=== PATIENT | male | born 1950 | race Caucasian/White ===

== ENCOUNTER 2018-04-20 02:54 | Outpatient (CLI) | payer MEDICARE, MEDICAID, SELFPAY | END 2018-04-20 03:14 | PROVIDERS: PCP Nurse Practitioner Family; Visit Provider Nurse Practitioner Family | DX: J44.9 Chronic obstructive pulmonary disease, unspecified (principal) | CPT/HCPCS: 36415; 80053; 86803; 85025; 86592 ==

== ENCOUNTER 2018-04-20 10:48 | Outpatient (CLI) | payer MEDICARE, MEDICAID, SELFPAY ==
[2018-04-20 11:36] LABS: Abs Immature Grans 0.02 k/cumm (0.0-0.09); Absolute Basophil Count 0.02 k/cumm (0.0-0.2); Absolute Eosinophil Count 0.17 k/cumm (0.0-0.7); Absolute Lymphocyte Count 1.59 k/cumm (1.2-3.4); Absolute Monocyte Count 0.51 k/cumm (0.11-0.7); Absolute Neutrophil Count 4.22 k/cumm (1.2-6.7); Basophils % 0.3; Eosinophils % 2.6; HCT 42.2 % (40.0-50.0); HGB 13.5 g/dL (13.5-17.5); Immature Grans % 0.3; Lymphocytes % 24.3; Mean Corpuscular Hemoglobin 30.5 pg (27.0-33.0); Mean Corpuscular Volume 95.3 fL (80-95); Mean Platelet Volume 10.6 fL (8.0-11.0); Monocytes % 7.8; Neutrophils % 64.7; Platelet Count 200 x1000/uL (130-400); RBC 4.43 m/cumm (4.50-6.00); RBC Distribution Width 13.4 % (11.8-14.1); White Blood Cell Count 6.53 k/cumm (4.4-10.8)
[2018-04-20 11:51] LABS: ALT 14 U/L (12-78); AST 19 U/L (15-37); Albumin 3.3 g/dL (3.4-5.0); Alkaline Phosphatase 111 U/L (46-116); Anion Gap 7.3 mmol/L (3-11); BUN 7 mg/dL (7-18); Bilirubin, Total 0.3 mg/dL (0.2-1.0); CO2 30.7 mmol/L (21.0-32.0); CREATININE 0.83 mg/dL (0.70-1.30); Calcium 8.7 mg/dL (8.5-10.1); Chloride 99 mmol/L (98-107); Glucose 111 mg/dL (70-100); Sodium 137 mmol/L (136-145); Total Protein 7.4 g/dL (6.4-8.2)
[2018-04-21 12:37] LABS: Syphilis Serology (RPR) Negative (Negative)
[2018-04-21 13:27] LABS: Hepatitis C Ab w Rflx HCV PCR Negative (NEGAT)
[2018-04-25 15:37] LABS: TB Interpretation Negative (NEGAT)
== END 2018-04-20 11:08 ==
PROVIDERS: PCP Nurse Practitioner Family; Visit Provider Nurse Practitioner Family
DX: J44.9 Chronic obstructive pulmonary disease, unspecified (principal); K21.9 Gastro-esophageal reflux disease without esophagitis; F11.20 Opioid dependence, uncomplicated; Z79.899 Other long term (current) drug therapy
CPT/HCPCS: 36415; 80053; 86803; 85025; 86592

== ENCOUNTER 2018-07-28 02:47 | Outpatient (CLI) | payer MEDICARE, MEDICAID, SELFPAY | END 2018-07-28 03:07 | PROVIDERS: PCP Nurse Practitioner Family; Visit Provider Nurse Practitioner Family | DX: Z79.899 Other long term (current) drug therapy (principal); Z13.6 Encounter for screening for cardiovascular disorders; R69 Illness, unspecified | CPT/HCPCS: 93005; 93010 ==

== ENCOUNTER 2018-10-07 05:59 | Inpatient (IN) | payer MEDICARE, MEDICAID, SELFPAY ==
[2018-10-07] VITALS (143 sets, daily range): BP systolic 104–157; BP diastolic 70–122; PULSE 75–108; RESP 2–33; TEMP 36.2–38.4; O2SAT 84–98
--- NOTE | 2018-10-07 06:22 | W.ED.GENAD ---
Discharge Plan Disposition Patient Disposition: [facility] INPATIENT Condition: Stable Discharge Details Chief Complaint: GenMedical Clinical Impression: Right lower lobe pneumonia Reason For Visit: R LOWER LOBE PNEUMONIA Admit Date/Time: 10/07/18 10:42 Admit Provider: Ti Delgado Attending Provider: Ti Delgado Primary Care Provider: Richelle Dowling ED Provider: Jono Dawkins Discharge Data Discharge Date/Time-TO BE ENTERED AT DEPARTURE: 10/07/18 11:45 Medical Decision Making <Samuel Flores MD - Last Filed: 10/07/18 21:17> Patient presents to ED with cough and mild shortness of breath. He is noted to be hypoxic in the mid 80s on room air. He has diminished breath sounds at the left base. Has rhonchi at the right base. I do not appreciate wheezing. He has no complaints of chest pain. He has had no fever. He has no coryza. IV established and fluids started. Laboratory studies obtained. Chest x-ray ordered. Suspect pneumonia. His back and knee pain is chronic in nature just exacerbated. Complains of myalgias to some degree but with lack of fever and coryza doubt influenza. Patient's laboratory studies are unremarkable. Troponin is negative. White count is minimally elevated. Chest x-ray remarkable for dilated loops of bowel and elevated left hemidiaphragm probably the reason is decreased breath sounds in the left. On reexam he continues to deny abdominal pain. However, palpation of the left upper quadrant does cause mild discomfort. He is reporting cough with a lot of phlegm production but states he is nauseated and hacking and I'm wondering if he is vomiting as well. I do not hear wheezing on exam. His lungs look relatively clear with no obvious infiltrate. Going to get a CTA of the chest and follow down through with CT of the abdomen/pelvis with oral contrast. Patient has been stable and doing well here. He has received a liter bolus. He will be signed out to oncoming physician, Dr. Dawkins. Medical Records Medical records reviewed: Yes I reviewed the patient's medical records. Lab Data Lab results reviewed: Yes I reviewed the patient's lab results. ECG Data Attestation: I personally reviewed and interpreted this ECG (s) as follows: Prior ECG tracings: not available for review Interpretation: Sinus tachycardia at 104. Normal axis and intervals. Nonspecific ST changes in the lateral leads. No ST elevation. <Jono Dawkins MD - Last Filed: 10/07/18 10:46> Received signout from Dr. Flores. Please see his note regarding details of patient's presentation and history. Patient CT images showed right lower lobe pneumonia. He does have persistent hypoxia, and elevated white blood cell count and a sodium of 131. Consistent with COPD exacerbation and right lower lobe pneumonia. Patient given Solu-Medrol, DuoNeb updraft. Please note given the patient's atypical presentation and initial unremarkable read of chest x-ray, pneumonia was delayed in diagnosis upon receipt of CT images. Patient states to me wishes to be full code. He states he did receive this mornings methadone dose. HPI <Samuel Flores MD - Last Filed: 10/07/18 21:17> General Mode of arrival: wheelchair. Date/Time Provider Initiated Documentation: 10/07/18 06:11. Limitations to Documentation: no limitations. Information obtained by: patient and old records reviewed. HPI Narrative: Patient presents to ED with cough and difficulty breathing. Patient reports getting the flu shot 3 days ago. About 12 hours after that he started to have cough. This has got progressively worse. He has some shortness of breath. He denies having fever. He has some body aches including chronic right knee pain and swelling. He has some nausea but no vomiting. He has no chest pain or pressure. He has no abdominal pain. He is a smoker. He does report history of COPD. Related Data Home Medications Medication Instructions Recorded Confirmed cyclobenzaprine 10 mg PO TID tab-cap 01/02/16 10/07/18 esomeprazole magnesium [Nexium] 20 mg PO DAILY tab-cap 01/02/16 10/07/18 albuterol sulfate [ProAir HFA] 2 puff INHALATION Q6H PRN 10/07/18 10/07/18 fluticasone propionate [Flovent 2 puff INHALATION BID 10/07/18 10/07/18 HFA] gabapentin 300 mg PO TID PRN 10/07/18 10/07/18 methadone 95 mg PO DAILY 10/07/18 10/07/18 Allergies Allergy/AdvReac Type Severity Reaction Status Date / Time ketorolac [From Toradol] Allergy makes my Unverified 10/07/18 06:32 head wack out codeine AdvReac Nausea Unverified 10/07/18 06:13 General Stated Complaint: GenMedical CARLOS EDUARDO: 2 Review of Systems <Samuel Flores MD - Last Filed: 10/07/18 21:17> Constitutional Denies chills, Denies fever(s), Denies headache(s), Denies lethargy, Reports malaise, Reports poor appetite and Denies weakness Eyes Denies eye discharge and Denies eye pain ENT Denies otalgia, Denies facial pain, Denies headache(s), Denies nasal congestion, Denies nasal discharge, Denies neck pain, Denies sinus pressure and Denies sore throat Cardiovascular Denies chest pain, Denies diaphoresis, Denies syncope, Denies edema, Denies leg edema, Denies lightheadedness and Reports dyspnea Respiratory Reports cough, Reports excessive phlegm production and Reports dyspnea Gastrointestinal Denies abdominal pain, Denies diarrhea, Reports nausea and Denies vomiting Genitourinary Denies dysuria and Denies flank pain Musculoskeletal Reports back pain, Reports myalgias, Reports arthralgias, Reports joint swelling, Denies neck pain and Denies numbness Integumentary/Breasts Denies rash Neurologic Denies syncope, Denies headache(s), Denies focal weakness, Denies numbness and Denies weakness PFSH <Samuel Flores MD - Last Filed: 10/07/18 21:17> Medical History Anxiety (Chronic) Back pain (Chronic) COPD (chronic obstructive pulmonary disease) (Chronic) Depression (Chronic) GERD (gastroesophageal reflux disease) (Chronic) Insomnia (Chronic) Macrocytosis (Chronic) Numbness and tingling in right hand (Chronic) Right knee DJD (Chronic) Tobacco abuse (Chronic) Surgical History History of right knee surgery (Inactive) History of shoulder surgery (Inactive) Hx of tonsillectomy (Inactive) Previous back surgery (Inactive) Social History Smoking/Tobacco Use Status: Current every day Tobacco Type: cigarettes Smoking cigarettes per day: 4 Years smoked: 40 Alcohol Intake: never Drug use: Daily Substance use type: marijuana Do you feel safe at home: Yes Do you feel safe in your relationship?: Yes Exam <Samuel Flores MD - Last Filed: 10/07/18 21:17> Const General: cooperative and no acute distress Orientation: alert and oriented x3 HENMT Head: normocephalic and atraumatic Mouth: moist mucous membranes Neck Neck: normal visual inspection, trachea midline and supple Resp Effort & Inspection: normal respiratory effort Auscultation: diminished lung sounds on the left in the lower lung boone, no rales, rhonchi right lower and no wheezes Cardio Rate: tachycardic Rhythm: regular rhythm Heart Sounds: S1 normal and S2 normal Pulses: radial pulses present GI Inspection: normal to inspection and non-distended Palpation: soft, not firm, no masses and nontender Skin Rashes: no rashes Neuro General: alert, oriented x3, no focal motor deficits and CN's II-XI intact bilaterally Extrem General: clubbing (mild), no cyanosis and no edema Right lower extremity: knee Details: abnormal to inspection, swelling and abnormal ROM Course <Samuel Flores MD - Last Filed: 10/07/18 21:17> Vital Signs Temperature 99.0 F 10/07/18 06:06 Pulse 106 H 10/07/18 06:06 Respiratory Rate 22 10/07/18 06:06 Blood Pressure 132/73 10/07/18 06:06 Pulse Oximetry 86 L 10/07/18 06:06 Temperature 99.0 F 10/07/18 06:06 Temperature Source Oral 10/07/18 06:06 Pulse 106 H 10/07/18 06:06 Respiratory Rate 22 10/07/18 06:06 Respiratory Effort Nasal Flaring 10/07/18 06:15 Blood Pressure 132/73 10/07/18 06:06 Blood Pressure Position Supine 10/07/18 06:06 Pulse Oximetry 86 L 10/07/18 06:06 Oxygen Delivery Method Room Air 10/07/18 06:06 Oxygen Flow Rate 0 10/07/18 06:06 Pain Level 9 10/07/18 06:06 Sign Out <Samuel Flores MD - Last Filed: 10/07/18 21:17> Sign Out Data: Sign Out Comment: pending CT scan chest/abdomen/pelvis and re-evaluation Last updated by Samuel Flores MD at 10/07/18 07:52
[2018-10-07 06:33] LABS: Lactate-non-spesis 1.3 mmol/l (0.6-1.4)
[2018-10-07] MEDS: Lactated Ringers 1,000 ML 1000 ML IV (06:33)
[2018-10-07 06:35] LABS: Abs Immature Grans 0.03 k/cumm (0.0-0.09); Absolute Basophil Count 0.02 k/cumm (0.0-0.2); Absolute Eosinophil Count 0.03 k/cumm (0.0-0.7); Absolute Lymphocyte Count 0.58 k/cumm (1.2-3.4); Absolute Monocyte Count 0.94 k/cumm (0.11-0.7); Absolute Neutrophil Count 9.57 k/cumm (1.2-6.7); Basophils % 0.2; Eosinophils % 0.3; HCT 41.3 % (40.0-50.0); HGB 13.6 g/dL (13.5-17.5); Immature Grans % 0.3; Lymphocytes % 5.2; Mean Corp. HGB Concentration 32.9 g/dL (32.0-36.0); Mean Corpuscular Hemoglobin 30.6 pg (27.0-33.0); Mean Corpuscular Volume 92.8 fL (80-95); Mean Platelet Volume 9.9 fL (8.0-11.0); Monocytes % 8.4; Neutrophils % 85.6; Platelet Count 271 x1000/uL (130-400); RBC 4.45 m/cumm (4.50-6.00); RBC Distribution Width 13.7 % (11.8-14.1); White Blood Cell Count 11.18 k/cumm (4.4-10.8)
[2018-10-07 06:51] LABS: ALT 14 U/L (12-78); AST 25 U/L (15-37); Alkaline Phosphatase 92 U/L (46-116); Anion Gap 9.8 mmol/L (3-11); BUN 11 mg/dL (7-18); Bilirubin, Total 0.5 mg/dL (0.2-1.0); CO2 27.2 mmol/L (21.0-32.0); CREATININE 0.82 mg/dL (0.70-1.30); Calcium 8.9 mg/dL (8.5-10.1); Chloride 94 mmol/L (98-107); Glucose 146 mg/dL (70-100); Magnesium 1.8 mg/dL (1.8-2.4); Potassium 3.9 mmol/L (3.5-5.1); Sodium 131 mmol/L (136-145); Total Protein 8.5 g/dL (6.4-8.2)
[2018-10-07 06:52] LABS: Troponin I < 0.02 ng/mL (0.00-0.06)
--- NOTE | 2018-10-07 07:00 | DI.RAD_ITS ---
SYMPTOM/DIAGNOSIS: COUGH, LOW SATURATIONS PA AND LATERAL CHEST: Comparison is made with 07/06/17. The lungs are not well inflated on either view. The heart size appears normal. The aorta is tortuous, unchanged. The lungs are not well inflated on either view. There is question of increased densities at the right lower lobe which could represent pneumonia versus atelectasis. There are mild underlying fibrotic changes. A left shoulder prosthesis is seen. There are severe degenerative changes of the right shoulder as well as degenerative changes in the thoracic spine. IMPRESSION: Question of a right lower lobe infiltrate versus atelectasis.
[2018-10-07] MEDS: Lactated Ringers 1,000 ML 125 ML IV (07:26)
[2018-10-07 09:55] LABS: Bilirubin Small (Negative); Blood Negative (Negative); Clarity Clear; Glucose Negative (Negative); Ketones 80 mg/dL (Negative); Leukocyte Esterase Negative (Negative); Nitrite Negative (Negative); Specific Gravity >= 1.030 (1.005-1.025)
--- NOTE | 2018-10-07 10:03 | NUR.NOTE ---
Iron Cutter received pertinent report from Naya Patel at 1000, and now assumes care of Ger Deuce. Patient is currently in DI (CT).Nursing Note:
[2018-10-07] MEDS: Omnipaque 350 MG/ML 100 ML BTL IJ (10:10)
--- NOTE | 2018-10-07 10:11 | NUR.NOTE ---
Return to ED from CTNursing Note:
--- NOTE | 2018-10-07 10:12 | DI.CT_ITS ---
SYMPTOM/DIAGNOSIS: HYPOXIC, ABD TENDERNESS, ABNORMAL CHEST XR PE CHEST CT: CT angiography was performed with multi slice acquisition and multi planar and 3D reconstruction. The exam is limited by patient motion. The aorta and pulmonary arteries are well opacified with IV contrast. There is significant motion at the level of the aortic root and proximal pulmonary artery. No pulmonary emboli or aortic dissection is seen. The heart size is normal. No pleural or pericardial effusions are seen. Evaluation of the lungs is difficult due to degree of respiratory motion. The lungs are not well inflated. There is elevation of the left diaphragm. Air space opacities are seen in the right lower lobe suspicious for pneumonia. There is mild apical scarring, greater on the right side. There is bilateral gynecomastia. Degenerative changes are seen in the spine. There is a left shoulder prosthesis. There are severe degenerative changes of the right shoulder as well as evidence of chronic rotator cuff tear. IMPRESSION: Limited exam due to respiratory motion and poor pulmonary infiltration. A right lower lobe infiltrate is seen. There is no evidence of pulmonary emboli or aortic dissection. ABDOMEN AND PELVIC CT: Images were performed from the lung bases through the ischial tuberosities after IV and oral contrast. The exam is quite limited by patient motion. The oral contrast extends to the hepatic flexure. There is a moderate to increased quantity of stool. There is no bowel wall thickening or inflammatory change. There is no abnormal bowel dilatation. The liver, gallbladder, spleen, pancreas, kidneys and adrenals are unremarkable. The bladder and prostate appear intact. There is no free air or free fluid. There are severe degenerative changes as well as post surgical changes in the lumbar spine. IMPRESSION: Limited exam due to patient motion. No acute abnormality is identified.
[2018-10-07] MEDS: Albuterol/Ipratropium 3 ML UPD VIAL UPD (11:10)
[2018-10-07] MEDS: methylPREDNISolone SUCC 125 MG VIAL IVP (11:20)
[2018-10-07] MEDS: Normal Saline Flush 10 ML SYR IVP (11:30)
--- NOTE | 2018-10-07 11:34 | PDOC.ERCMPRO ---
Care Management Progress Note 10/07-Eladio presented to the Emergency Department this am with cough and shortness of breath. His daughter Zoya transported him here. Eladio is being admitted to the med/surg unit for right sided pneumonia. This CM met with Eladio. Eladio currently is staying with his daughter Zoya and son in law Gagan Bledsoe in [place], [place]. There are also two grandchildren in the home, an 18 yhear old granddaugther and 8 year old grandson. Eladio lights up when he talks about the grandchildren. Eladio does still have a residence in [place]. Cody states he has a daughter Ana Laura and Son Bradley that live in [place]. Discussion on Advance Directives. Phillip does not have any advance directives and at this time doesn't feel like completing them. Eladio goes to the [facility] clinic every 10 days for Methadone. Cody states he has been taking methadone since 1990 for chronic back pain. Eladio does not use any DME, does not have any home health services or lifeline. Eladio states he can get around reasonably well. Daughter Zoya is not on the chart and Eladio would like to add her. This CM notified Access to add Zoya Bledsoe, [facility] [place][note 2], , eladio's daughter to the chart. Will keep daughter Ana Laura on the chart as well. When ready for discharge, Eladio plans on going back to [place] to his daughter Zoya's home. Zoya will transport home.
--- NOTE | 2018-10-07 12:29 | CMPROGNOTE_ITS ---
Care Management Progress Note 10/07-Eladio presented to the Emergency Department this am with cough and shortness of breath. His daughter Zoya transported him here. Eladio is being admitted to the med/surg unit for right sided pneumonia. This CM met with Eladio. Eladio currently is staying with his daughter Zoya and son in law Gagan Bledsoe in [place], [place]. There are also two grandchildren in the home, an 18 yhear old granddaugther and 8 year old grandson. Eladio lights up when he talks about the grandchildren. Eladio does still have a residence in [place]. Cody states he has a daughter Ana Laura and Son Bradley that live in [place]. Discussion on Advance Directives. Phillip does not have any advance directives and at this time doesn't feel like completing them. Eladio goes to the [facility] clinic every 10 days for Methadone. Cody states he has been taking methadone since 1990 for chronic back pain. Eladio does not use any DME, does not have any home health services or lifeline. Eladio states he can get around reasonably well. Daughter Zoya is not on the chart and Eladio would like to add her. This CM notified Access to add Zoya Bledsoe, [facility], , eladio's daughter to the chart. Will keep daughter Ana Laura on the chart as well. When ready for discharge, Eladio plans on going back to [place] to his daughter Zoya's home. Zoya will transport home.
[2018-10-07] MEDS: Normal Saline 1,000 ML 100 ML IV ×2 (13:30→23:40)
[2018-10-07] MEDS: Enoxaparin 40 MG/0.4 ML SYR SC (14:06)
[2018-10-07] MEDS: Acetaminophen 325 MG TAB PO (16:37)
[2018-10-07] MEDS: Doxycycline Hyclate 100 MG CAP PO (19:32)
[2018-10-07] MEDS: Cyclobenzaprine 10 MG TAB PO (19:32)
[2018-10-07] MEDS: Mometasone 220 MCG 14 DOSE INHALER 1 PUFF IH (19:33)
[2018-10-07] MEDS: Nystatin POWDER 60 GM JAR TP (19:33)
[2018-10-08] VITALS (7 sets, daily range): BP systolic 104–130; BP diastolic 65–78; PULSE 76–86; RESP 18–22; TEMP 36.1–36.7; O2SAT 93–96
[2018-10-08] MEDS: Mometasone 220 MCG 14 DOSE INHALER 1 PUFF IH ×2 (07:28→19:07)
[2018-10-08] MEDS: Esomeprazole 20 MG CAPCR PO (07:53)
[2018-10-08] MEDS: Cyclobenzaprine 10 MG TAB PO ×3 (07:53→19:06)
[2018-10-08] MEDS: Doxycycline Hyclate 100 MG CAP PO ×2 (07:53→19:06)
[2018-10-08] MEDS: Methadone Liquid 10 MG/ML 95 MG PO (07:54)
[2018-10-08] MEDS: Nystatin POWDER 60 GM JAR TP ×2 (07:54→19:10)
[2018-10-08 08:05] LABS: Abs Immature Grans 0.03 k/cumm (0.0-0.09); Absolute Basophil Count 0.01 k/cumm (0.0-0.2); Absolute Lymphocyte Count 1.02 k/cumm (1.2-3.4); Absolute Monocyte Count 0.66 k/cumm (0.11-0.7); Absolute Neutrophil Count 8.78 k/cumm (1.2-6.7); Basophils % 0.1; HCT 38.8 % (40.0-50.0); HGB 12.4 g/dL (13.5-17.5); Immature Grans % 0.3; Lymphocytes % 9.7; Mean Corpuscular Hemoglobin 29.9 pg (27.0-33.0); Mean Corpuscular Volume 93.5 fL (80-95); Monocytes % 6.3; Neutrophils % 83.6; Platelet Count 208 x1000/uL (130-400); RBC 4.15 m/cumm (4.50-6.00); RBC Distribution Width 13.7 % (11.8-14.1)
[2018-10-08 08:15] LABS: Anion Gap 6.9 mmol/L (3-11); BUN 11 mg/dL (7-18); CO2 28.1 mmol/L (21.0-32.0); CREATININE 0.64 mg/dL (0.70-1.30); Chloride 100 mmol/L (98-107); Glucose 83 mg/dL (70-100); Potassium 4.1 mmol/L (3.5-5.1); Sodium 135 mmol/L (136-145)
[2018-10-08] MEDS: Normal Saline 1,000 ML 100 ML IV (08:51)
[2018-10-08] MEDS: methylPREDNISolone SUCC 125 MG VIAL 60 MG IVP ×2 (10:37→17:39)
[2018-10-08] MEDS: Pantoprazole 40 MG VIAL IVP (10:37)
[2018-10-08] MEDS: Normal Saline Flush 10 ML SYR IVP ×2 (10:38→17:39)
[2018-10-08] MEDS: Furosemide 40 MG/4 ML VIAL IVP (12:20)
[2018-10-08] MEDS: Albuterol 2.5 MG/3 ML INH SOLN VIAL UPD (12:57)
[2018-10-08] MEDS: Enoxaparin 40 MG/0.4 ML SYR SC (13:26)
--- NOTE | 2018-10-08 15:56 | W.PM.PROGNOT ---
Date of Service Date of service: 10/08/18 Time of Service: 16:34 Assessment and Plan (1) CAP (community acquired pneumonia): Start date: 10/08/18 Start time: 16:01 Current visit: Yes Status: Acute Came to the ED with c/o cough and SOB, hypoxic in mid 80's CXR revealed RLL pneumonia, started on Doxycyline and ceftrixone day 2. He feels his breathing is improving, He does have rhonic, with scattered wheezing and crackles. IVF dcd and given a dose of Lasix 40 mg IVP in the presence of crackles and edema, see below Continue duoneb, albuterol, symbicort, mucinex, sputum for culture, pending at this time. Continue steroids and taper as needed. (2) COPD with acute exacerbation: Start date: 10/08/18 Start time: 16:07 Current visit: Yes Status: Acute In the setting of pneumonia, does not requires oxygen at home, (3) Tobacco abuse: Start date: 10/08/18 Start time: 16:06 Current visit: Yes Status: Acute current smoker, states down from 12 a day to 3 a day and feels this is a huge accomplishment, not quite ready to quit at this time. Nicotine patch ordered. Will continue to address cessation (4) GERD (gastroesophageal reflux disease): Current visit: Yes Status: Chronic (5) Edema leg: Start date: 10/08/18 Start time: 16:26 Current visit: Yes Status: Acute +2 pitting edema to RLE and +1 to LLE, patient states this is normal. he had crackles and edema 40 mg lasix IVP was given, could be increased from steroid use, will continue to monitor. (6) Chronic pain: Start date: 10/08/18 Start time: 16:33 Current visit: Yes Status: Chronic take methadone will continue home dose (7) Range of motion deficit: Start date: 10/08/18 Start time: 16:33 Current visit: Yes Status: Acute Limited ROM to bilateral shoulders, PT/OT consulted to work with patient for better mobility. (8) DVT prophylaxis: Start date: 10/08/18 Start time: 16:26 Current visit: Yes Status: Acute enoxaparin Subcu Subjective Patient reports: feels better Interval history since last seen: Mr. Tripathi feels better today, he does not appear to be in distress. His lung sounds are coarse with crackles, wheezing and rhonci. He is on rocephin and doxycycline for CAP, continue steroids, duonebs, asmanex albuterol for COPD, he did have edema to bilateral LE, he states this is normal in the presence of +2 pitting edema to RLE and +1 to LLE with crackles 40 mg lasix IVP was given. . Following administration he did have some relief. Sputum culture was ordered, culture pending He has limited ROM to bilateral shoulders from previous injury PT/OT consulted. Exam Const General: cooperative and no acute distress Orientation: alert, awake and oriented x3 HENMT Head: normal to inspection Eyes General: appearance normal, both eyes and all related structures Neck Lymphatic: no lymphadenopathy noted and no lymphedema noted Chest Chest: normal inspection of the chest Resp Effort & Inspection: able to speak in complete sentences and cough Auscultation: crackles, rhonchi and wheezes Cardio Rate: regular rate Rhythm: regular rhythm Heart Sounds: S1 normal and S2 normal GI Inspection: normal to inspection Palpation: soft and no hepatosplenomegaly Skin General skin exam: no rashes or lesions noted Neuro General: alert, awake and oriented x3 Extrem Other: pitting edema + 2 to RLE and +1 to RLE Psych Appearance: grossly normal Objective Objective Clinical Data: Abnormal lab results 10/08/18 10/08/18 Range/Units 07:40 07:40 RBC 4.15 L (4.50-6.00) m/cumm Hgb 12.4 L (13.5-17.5) g/dL Hct 38.8 L (40.0-50.0) % Absolute Neutrophils 8.78 H (1.2-6.7) k/cumm Absolute Lymphocytes 1.02 L (1.2-3.4) k/cumm Sodium 135 L (136-145) mmol/L Creatinine 0.64 L (0.70-1.30) mg/dL Vital Signs Temperature 36.6 C 10/08/18 11:34 Temperature Source Tympanic 10/08/18 11:34 Pulse 82 10/08/18 11:34 Pulse Rhythm Regular 10/07/18 20:11 Pulse 89 10/07/18 09:31 Respiratory Rate 20 10/08/18 11:34 Respiratory Effort Incrsd Work of Breathing 10/08/18 07:46 Respiratory Depth Shallow 10/08/18 07:46 Respiratory Pattern Normal 10/08/18 07:46 Blood Pressure 129/78 10/08/18 11:34 Blood Pressure Mean 93 10/07/18 09:31 Blood Pressure Position Supine 10/07/18 06:06 Pulse Oximetry 94 L 10/08/18 11:34 Oxygen Delivery Method Nasal Cannula 10/08/18 11:34 Oxygen Flow Rate 3 10/08/18 11:34 Pain Level 6 10/08/18 11:34 Comment 10/07/18 10:27 Intake & Output 10/07/18 10/08/18 10/08/18 23:59 11:59 23:59 Intake Total 2240 / 3240 1900.000 / 2140.000 240 / 2140.000 Output Total 1650 / 1950 1350 / 3075 1725 / 3075 Balance 590 / 1290 550.000 / -935.000 -1485 / -935.000 Weight 77.2 kg Intake: IV 2000 / 3000 1110.000 / 1110.000 Oral 240 / 240 790 / 1030 240 / 1030 Output: Urine 1650 / 1950 1350 / 3075 1725 / 3075 Other: Urine Color Yellow Yellow Pale Urine Appearance Clear Clear Clear Urine Odor Normal Normal Normal Comment plus missed this urinal also. Voids in urinal x2. Voiding Methods Urinal Urinal Urinal Laboratory Results WBC 10.50 k/cumm (4.4-10.8) 10/08/18 07:40 RBC 4.15 m/cumm (4.50-6.00) L 10/08/18 07:40 Hgb 12.4 g/dL (13.5-17.5) L 10/08/18 07:40 Hct 38.8 % (40.0-50.0) L 10/08/18 07:40 MCV 93.5 fL (80-95) 10/08/18 07:40 MCH 29.9 pg (27.0-33.0) 10/08/18 07:40 MCHC 32.0 g/dL (32.0-36.0) 10/08/18 07:40 RDW 13.7 % (11.8-14.1) 10/08/18 07:40 Plt Count 208 x1000/uL (130-400) 10/08/18 07:40 MPV 10.0 fL (8.0-11.0) 10/08/18 07:40 Immature Gran % 0.3 10/08/18 07:40 Neutrophils % 83.6 10/08/18 07:40 Lymphocytes % 9.7 10/08/18 07:40 Monocytes % 6.3 10/08/18 07:40 Eosinophils % 0.0 10/08/18 07:40 Basophils % 0.1 10/08/18 07:40 Absolute Neutrophils 8.78 k/cumm (1.2-6.7) H 10/08/18 07:40 Absolute Lymphocytes 1.02 k/cumm (1.2-3.4) L 10/08/18 07:40 Absolute Monocytes 0.66 k/cumm (0.11-0.7) 10/08/18 07:40 Absolute Eosinophils 0.00 k/cumm (0.0-0.7) 10/08/18 07:40 Absolute Basophils 0.01 k/cumm (0.0-0.2) 10/08/18 07:40 Sodium 135 mmol/L (136-145) L 10/08/18 07:40 Potassium 4.1 mmol/L (3.5-5.1) 10/08/18 07:40 Chloride 100 mmol/L (98-107) 10/08/18 07:40 Carbon Dioxide 28.1 mmol/L (21.0-32.0) 10/08/18 07:40 Anion Gap 6.9 mmol/L (3-11) 10/08/18 07:40 BUN 11 mg/dL (7-18) 10/08/18 07:40 Creatinine 0.64 mg/dL (0.70-1.30) L 10/08/18 07:40 Estimated GFR/1.73 m2 >= 60.00 (mL/min/1.73m2) 10/08/18 07:40 Glucose 83 mg/dL (70-100) D 10/08/18 07:40 Lactate 1.3 mmol/l (0.6-1.4) 10/07/18 06:20 Calcium 9.0 mg/dL (8.5-10.1) 10/08/18 07:40 Magnesium 1.8 mg/dL (1.8-2.4) 10/07/18 06:20 Total Bilirubin 0.5 mg/dL (0.2-1.0) 10/07/18 06:20 AST 25 U/L (15-37) 10/07/18 06:20 ALT 14 U/L (12-78) 10/07/18 06:20 Alkaline Phosphatase 92 U/L (46-116) 10/07/18 06:20 Troponin I < 0.02 ng/mL (0.00-0.06) 10/07/18 06:20 Total Protein 8.5 g/dL (6.4-8.2) H 10/07/18 06:20 Albumin 3.0 g/dL (3.4-5.0) L 10/07/18 06:20 Urine Color Dark yellow (Yellow) 10/07/18 09:49 Urine Clarity Clear 10/07/18 09:49 Urine pH 6.0 (5-8) 10/07/18 09:49 Ur Specific [place] >= 1.030 (1.005-1.025) H 10/07/18 09:49 Urine Protein Negative mg/dL (Negative) 10/07/18 09:49 Urine Ketones 80 mg/dL (Negative) H 10/07/18 09:49 Urine Blood Negative (Negative) 10/07/18 09:49 Urine Nitrite Negative (Negative) 10/07/18 09:49 Urine Bilirubin Small (Negative) H 10/07/18 09:49 Urine Urobilinogen 4.0 EU/dL (Up TO 0.2) H 10/07/18 09:49 Ur Leukocyte Esterase Negative (Negative) 10/07/18 09:49 Urine Glucose Negative mg/dL (Negative) 10/07/18 09:49
--- NOTE | 2018-10-08 16:25 | PDOC.CMIN ---
Care Management Initial Assess REASON FOR HOSPITALIZATION:: RLL Pneumonia PAST MEDICAL HISTORY/PAST SURGICAL HISTORY:: Medical: Anxiety (Chronic), Back pain (Chronic), COPD (chronic obstructive pulmonary disease) (Chronic), Depression (Chronic), GERD (gastroesophageal reflux disease) (Chronic), Insomnia (Chronic), Macrocytosis (Chronic), Numbness and tingling in right hand (Chronic), Tobacco abuse (Chronic). Surgical: History of right knee surgery (Inactive), History of shoulder surgery (Inactive), Hx of tonsillectomy (Inactive), Previous back surgery (Inactive) PREVIOUS FUNCTIONAL STATUS/SOCIAL/FAMILY SUPPORTS:: Lives with his daughter, Zoya Edwards, her and children at their home in [place], [place]. The family is very supportive. He is independent at baseline, helps watch the children and does chores around the house. . CURRENT FUNCTIONAL STATUS:: Lying in bed with nasal cannula in place. States he has never had to use oxygen before and is not sure he likes it. Hopes his lungs clear up soon so he can go home. SOB when he ambulates. ADVANCE DIRECTIVES:: None on file Has patient been provided with information about the portal?: No Did the patient sign up for the portal?: No CODE STATUS:: Full Code INSURANCE COVERAGE / FINANCIAL ISSUES:: Medicaid. Medicare CURRENT HOME/COMMUNITY SERVICES/EQUIPMENT:: None at this time PRIMARY CARE PHYSICIAN:: [facility]: Richelle Dowling NP POTENTIAL DISCHARGE NEEDS:: F/U with PCP PATIENT/FAMILY EDUCATION NEEDS:: Discharge instructions ANTICIPATED BARRIERS TO DISCHARGE:: None identified TRANSPORTATION:: Family PLAN:: Eladio will return home when medically cleared for discharge. No services needed. Family will transport. Readmission - Within the Past 30 Days Yes or No: N
[2018-10-08] MEDS: guaiFENesin 600 MG TABCR PO (19:06)
[2018-10-08] MEDS: Budesonide/Formoterol 80/4.5 6.9 GM 60 PUFF INH IH (19:07)
[2018-10-09] VITALS (8 sets, daily range): BP systolic 110–161; BP diastolic 67–92; PULSE 84–101; RESP 18–20; TEMP 36.1–36.8; O2SAT 92–96
[2018-10-09] MEDS: methylPREDNISolone SUCC 125 MG VIAL 60 MG IVP ×3 (01:31→18:08)
[2018-10-09 07:24] LABS: Abs Immature Grans 0.02 k/cumm (0.0-0.09); Absolute Lymphocyte Count 0.63 k/cumm (1.2-3.4); Absolute Neutrophil Count 9.24 k/cumm (1.2-6.7); HCT 37.2 % (40.0-50.0); HGB 12.1 g/dL (13.5-17.5); Immature Grans % 0.2; Lymphocytes % 6.2; Mean Corp. HGB Concentration 32.5 g/dL (32.0-36.0); Mean Corpuscular Hemoglobin 30.4 pg (27.0-33.0); Mean Corpuscular Volume 93.5 fL (80-95); Monocytes % 2.9; Neutrophils % 90.7; Platelet Count 210 x1000/uL (130-400); RBC 3.98 m/cumm (4.50-6.00); RBC Distribution Width 13.6 % (11.8-14.1); White Blood Cell Count 10.19 k/cumm (4.4-10.8)
[2018-10-09 07:36] LABS: Anion Gap 3.7 mmol/L (3-11); BUN 14 mg/dL (7-18); CO2 32.3 mmol/L (21.0-32.0); CREATININE 0.67 mg/dL (0.70-1.30); Calcium 8.8 mg/dL (8.5-10.1); Chloride 99 mmol/L (98-107); Glucose 136 mg/dL (70-100); Sodium 135 mmol/L (136-145)
[2018-10-09] MEDS: Budesonide/Formoterol 80/4.5 6.9 GM 60 PUFF INH IH (07:41)
[2018-10-09] MEDS: Cyclobenzaprine 10 MG TAB PO ×3 (07:49→19:09)
[2018-10-09] MEDS: guaiFENesin 600 MG TABCR PO ×2 (07:49→19:09)
[2018-10-09] MEDS: Pantoprazole 40 MG VIAL IVP (07:49)
[2018-10-09] MEDS: Esomeprazole 20 MG CAPCR PO (07:49)
[2018-10-09] MEDS: Doxycycline Hyclate 100 MG CAP PO ×2 (07:49→19:09)
[2018-10-09] MEDS: Normal Saline Flush 10 ML SYR IVP ×3 (07:50→18:09)
[2018-10-09] MEDS: Methadone Liquid 10 MG/ML 95 MG PO (07:50)
[2018-10-09] MEDS: Nystatin POWDER 60 GM JAR TP ×2 (07:51→19:09)
[2018-10-09] MEDS: Albuterol/Ipratropium 3 ML UPD VIAL UPD ×5 (09:48→23:10)
--- NOTE | 2018-10-09 11:30 | DI.RAD_ITS ---
SYMPTOM/DIAGNOSIS: WORSENING SYMPTOMS PA AND LATERAL CHEST: Comparison is made with 07/06/17 and 10/07/18. The heart size and pulmonary vasculature are within normal limits. There are increased lung markings in the right lower lobe and right upper lobe which appear stable. This may represent acute pneumonia or atelectasis. The left lung remains clear. No effusions or pneumothoraces are identified. There are again seen dilated loops of bowel beneath the left hemidiaphragm which is mildly elevated. Post surgical changes of a total reversed shoulder replacement are again noted. IMPRESSION: No significant change in appearance of the chest xray since 10/07/18. Persistent right pulmonary infiltrates.
--- NOTE | 2018-10-09 11:56 | PGE_ITS ---
Date of Service Date of service: 10/09/18 Time of Service: 12:18 Assessment and Plan (1) CAP (community acquired pneumonia): Current visit: Yes Status: Acute started on Doxycyline and ceftrixone day 3. He feels his breathing is improving, his right lung has expiratory wheezing with slight coarse sounds improved from yesterday. Left lung severely diminished with little breath sounds . CXR with elevated diaphragm and no change on from previous xray 10/07 results at this time. Sputum culture with normal garfield, continue current treatment. (2) COPD with acute exacerbation: Current visit: Yes Status: Acute In the setting of pneumonia, see above (3) Tobacco abuse: Current visit: Yes Status: Acute continue to assess readiness to quit (4) GERD (gastroesophageal reflux disease): Current visit: Yes Status: Chronic (5) Edema leg: Current visit: Yes Status: Acute +2 to RLE and +1 to LLE continue to monitor. Echo for wednesday to r/o heart failure (6) Chronic pain: Current visit: Yes Status: Chronic take methadone will continue home dose (7) Range of motion deficit: Current visit: Yes Status: Acute Limited ROM to bilateral shoulders, continue PT/OT (8) DVT prophylaxis: Current visit: Yes Status: Acute enoxaparin Subcu (9) Constipation: Start date: 10/09/18 Start time: 12:33 Current visit: Yes Status: Acute takes methadone, chronic issue bowel regimen started of senekot and miralax scheduled. Subjective Patient reports: feels better Interval history since last seen: Pt states he is feeling better today, his lung sounds on the left are diminished with little air, repeat CXR was done revealing no change from previous 10/07 CXR. There does appear to looped bowel in the diaphragm given the patient is on methadone, more than likely stool. Bowel regimen started with miralax and senekot. Right lung does sound better compared to yesterday. He does still have expiratory wheezing and rhonci. no crackles heard today. Continue treatment of steroids, nebs, updraft, rocephin and doxy day 3, currently weaning off oxygen. Exam Const General: cooperative and no acute distress Orientation: alert, awake and oriented x3 HENMT Head: normal to inspection Eyes General: appearance normal, both eyes and all related structures Neck Lymphatic: no lymphadenopathy noted and no lymphedema noted Chest Chest: normal inspection of the chest Resp Effort & Inspection: able to speak in complete sentences and cough Auscultation: crackles, diminished lung sounds, rhonchi and wheezes Other: left lung sounds diminished with little breath sounds Cardio Rate: regular rate Rhythm: regular rhythm Heart Sounds: S1 normal and S2 normal GI Inspection: normal to inspection Palpation: soft and no hepatosplenomegaly Skin General skin exam: no rashes or lesions noted Neuro General: alert, awake and oriented x3 Extrem Other: +2 pitting to RLE, +1 to LLE Psych Appearance: grossly normal Objective Objective Clinical Data: Abnormal lab results 10/09/18 10/09/18 Range/Units 06:12 06:12 RBC 3.98 L (4.50-6.00) m/cumm Hgb 12.1 L (13.5-17.5) g/dL Hct 37.2 L (40.0-50.0) % Absolute Neutrophils 9.24 H (1.2-6.7) k/cumm Absolute Lymphocytes 0.63 L (1.2-3.4) k/cumm Sodium 135 L (136-145) mmol/L Carbon Dioxide 32.3 H (21.0-32.0) mmol/L Creatinine 0.67 L (0.70-1.30) mg/dL Glucose 136 H (70-100) mg/dL Vital Signs Temperature 36.3 C L 10/09/18 11:37 Temperature Source Tympanic 10/09/18 11:37 Pulse 90 10/09/18 11:37 Pulse Rhythm Regular 10/09/18 07:43 Pulse 89 10/07/18 09:31 Respiratory Rate 20 10/09/18 11:37 Respiratory Effort Incrsd Work of Breathing 10/09/18 07:43 Respiratory Depth Shallow 10/09/18 07:43 Respiratory Pattern Normal 10/09/18 07:43 Blood Pressure 112/70 10/09/18 11:37 Blood Pressure Mean 93 10/07/18 09:31 Blood Pressure Position Supine 10/07/18 06:06 Pulse Oximetry 94 L 10/09/18 11:37 Oxygen Delivery Method Nasal Cannula 10/09/18 11:37 Oxygen Flow Rate 3 10/09/18 11:37 Pain Level 8 10/09/18 07:50 Comment 10/07/18 10:27 Intake & Output 10/08/18 10/08/18 10/09/18 11:59 23:59 11:59 Intake Total 1933.333 / 2743.333 810 / 2743.333 Output Total 1350 / 5175 3825 / 5175 600 / 600 Balance 583.333 / -2431.667 -3015 / -2431.667 -600 / -600 Weight 77.2 kg 76.5 kg Intake: IV 1143.333 / 1163.333 20 / 1163.333 Oral 790 / 1580 790 / 1580 Output: Urine 1350 / 5175 3825 / 5175 600 / 600 Other: Urine Color Yellow Yellow Yellow Urine Appearance Clear Clear Clear Urine Odor Normal Normal Comment Voids in urinal x2. Stool Characteristics Soft Formed Voiding Methods Urinal Urinal Laboratory Results WBC 10.19 k/cumm (4.4-10.8) 10/09/18 06:12 RBC 3.98 m/cumm (4.50-6.00) L 10/09/18 06:12 Hgb 12.1 g/dL (13.5-17.5) L 10/09/18 06:12 Hct 37.2 % (40.0-50.0) L 10/09/18 06:12 MCV 93.5 fL (80-95) 10/09/18 06:12 MCH 30.4 pg (27.0-33.0) 10/09/18 06:12 MCHC 32.5 g/dL (32.0-36.0) 10/09/18 06:12 RDW 13.6 % (11.8-14.1) 10/09/18 06:12 Plt Count 210 x1000/uL (130-400) 10/09/18 06:12 MPV 10.0 fL (8.0-11.0) 10/09/18 06:12 Immature Gran % 0.2 10/09/18 06:12 Neutrophils % 90.7 10/09/18 06:12 Lymphocytes % 6.2 10/09/18 06:12 Monocytes % 2.9 10/09/18 06:12 Eosinophils % 0.0 10/09/18 06:12 Basophils % 0.0 10/09/18 06:12 Absolute Neutrophils 9.24 k/cumm (1.2-6.7) H 10/09/18 06:12 Absolute Lymphocytes 0.63 k/cumm (1.2-3.4) L 10/09/18 06:12 Absolute Monocytes 0.30 k/cumm (0.11-0.7) 10/09/18 06:12 Absolute Eosinophils 0.00 k/cumm (0.0-0.7) 10/09/18 06:12 Absolute Basophils 0.00 k/cumm (0.0-0.2) 10/09/18 06:12 Sodium 135 mmol/L (136-145) L 10/09/18 06:12 Potassium 4.0 mmol/L (3.5-5.1) 10/09/18 06:12 Chloride 99 mmol/L (98-107) 10/09/18 06:12 Carbon Dioxide 32.3 mmol/L (21.0-32.0) H 10/09/18 06:12 Anion Gap 3.7 mmol/L (3-11) 10/09/18 06:12 BUN 14 mg/dL (7-18) 10/09/18 06:12 Creatinine 0.67 mg/dL (0.70-1.30) L 10/09/18 06:12 Estimated GFR/1.73 m2 >= 60.00 (mL/min/1.73m2) 10/09/18 06:12 Glucose 136 mg/dL (70-100) H 10/09/18 06:12 Lactate 1.3 mmol/l (0.6-1.4) 10/07/18 06:20 Calcium 8.8 mg/dL (8.5-10.1) 10/09/18 06:12 Magnesium 2.0 mg/dL (1.8-2.4) 10/09/18 06:12 Total Bilirubin 0.5 mg/dL (0.2-1.0) 10/07/18 06:20 AST 25 U/L (15-37) 10/07/18 06:20 ALT 14 U/L (12-78) 10/07/18 06:20 Alkaline Phosphatase 92 U/L (46-116) 10/07/18 06:20 Troponin I < 0.02 ng/mL (0.00-0.06) 10/07/18 06:20 Total Protein 8.5 g/dL (6.4-8.2) H 10/07/18 06:20 Albumin 3.0 g/dL (3.4-5.0) L 10/07/18 06:20 Urine Color Dark yellow (Yellow) 10/07/18 09:49 Urine Clarity Clear 10/07/18 09:49 Urine pH 6.0 (5-8) 10/07/18 09:49 Ur Specific Lillie >= 1.030 (1.005-1.025) H 10/07/18 09:49 Urine Protein Negative mg/dL (Negative) 10/07/18 09:49 Urine Ketones 80 mg/dL (Negative) H 10/07/18 09:49 Urine Blood Negative (Negative) 10/07/18 09:49 Urine Nitrite Negative (Negative) 10/07/18 09:49 Urine Bilirubin Small (Negative) H 10/07/18 09:49 Urine Urobilinogen 4.0 EU/dL (Up TO 0.2) H 10/07/18 09:49 Ur Leukocyte Esterase Negative (Negative) 10/07/18 09:49 Urine Glucose Negative mg/dL (Negative) 10/07/18 09:49
--- NOTE | 2018-10-09 12:04 | DI.VRAD_ITS ---
EXAM: XR Chest, 2 Views EXAM DATE/TIME: 10/09/2018 10:58 AM CLINICAL HISTORY: 68 years old, male; Signs and symptoms; Other: Worsening symptoms. ; Additional info: Best images obtained due to patient condition. TECHNIQUE: XR of the chest, 2 views. COMPARISON: CR XR CHEST 2V PA LATERAL 10/07/2018 6:55 AM FINDINGS: Lungs: There is right basilar atelectasis versus pneumonia. Pleural space: No pleural effusion or pneumothorax. Heart/Mediastinum: The mediastinum is unchanged. Upper abdomen: The left hemidiaphragm is elevated, present before. Bones/joints: There is severe osteoarthritis affecting the right shoulder. There is a a chronic right rotator cuff tear. Prior left total reverse shoulder arthroplasty. IMPRESSION: No change compared to 10/07/2018. Dictated and Authenticated by: Wilfred Wu MD. Ordering:SAIGE Atkins MD
[2018-10-09] MEDS: Enoxaparin 40 MG/0.4 ML SYR SC (15:14)
[2018-10-09 15:58] LABS: NT-proBNP 379 pg/mL
--- NOTE | 2018-10-09 16:45 | PT.INIE ---
Date of service: 10/09/18 Time of Service: 16:02 PT Notes Inpatient Physical Therapy Evaluation Date: 10/09/2018 Referring Doctor: Milly Centeno NP PT Orders: PT CONSULT: Decreased ROM to bilateral shoulders and do conditioning in a chronic illness Precautions: Fall. Standard. Patient Profile/Admitting Diagnosis: Patient is a 68-year-old male who went to the ER on 10/07/2018 with chief complaints of cough, SOB, and body malaise. CT scan of the lungs revealed a right lower lobe pneumonia and with diagnosis made for community-acquired pneumonia and COPD exacerbation. Patient also presents with limitation of motion for bilateral shoulders due to previous childhood trauma to the right shoulder and a fall at her daughter's house in [facility] with him landing on his left shoulder. Patient states that he has had previous extensive physical therapy to bilateral shoulders but full range of motion has not been achieved. Patient reports that his been part of [facility] program in [place], [place] where he is a recipient of methadone treatment for the past 6 months now. PMHX: Medical History Anxiety (Chronic) Back pain (Chronic) COPD (chronic obstructive pulmonary disease) (Chronic) Depression (Chronic) GERD (gastroesophageal reflux disease) (Chronic) Insomnia (Chronic) Macrocytosis (Chronic) Numbness and tingling in right hand (Chronic) Right knee DJD (Chronic) Tobacco abuse (Chronic) Surgical History History of right knee surgery (Inactive) History of shoulder surgery (Inactive) Hx of tonsillectomy (Inactive) Previous back surgery (Inactive) Social History/Home Situation: Patient lives with his son's ex-'s house in [facility] where he plans to go home to upon discharge from this hospital. He states that it is a single floor ranch-style home with 3 steps to enter rail on the right side going up. He states that he has stopped using a cane because it has made his hands and fingers numb although today with the use of the walker he does not report any sensory changes in both hands and fingers. Patient states he smokes 2-3 cigarettes/day and has stopped drinking for the past 20 years. He is able to make his own meals and has been ambulatory without any assistive device at home he states he has 15 feet to walk to the bathroom and 30 feet from the inside of the house to get into the car door outside. Furthermore, he states that he was doing some grocery shopping and managing well with it as long as somebody drives him Equipment Owned/DME: Has a walker and cane. He also has a wheelchair. He states though that he does not make use of any of them. Subjective: Patient seen resting lying in bed and is agreeable to PT consult. Patient states My shoulders have been like this for quite a while now,my right I injured when I was in high school and my left I hurt when I fell down the stairs and my daughter's house in [facility] several months ago. Objective: General Observation: Patient lying in bed. PICC line in the right UE. No swelling to BLE observed. Mental Status: Alert and oriented x3 Pain: Denies. 0/10. ROM: Right Upper Extremity: Shoulder flexion 30 degrees. Shoulder abduction 30 degrees. Left Upper Extremity: Shoulder flexion 30 degrees. Shoulder abduction 30 degrees. Right Lower Extremity: WFL Left Lower Extremity: WFL Strength: Right Upper Extremity: Shoulder flexors 3-/5. Shoulder abductors 3-/5. Elbow flexors 3+/5. Elbow extensors 3+/5. Undercutter weak but functional. Left Upper Extremity: Shoulder flexors 3-/5. Shoulder abductors 3-/5. Elbow flexors 3+/5. Elbow extensors 3+/5. Undercutter weak but functional. Right Lower Extremity: Hip flexors 4-/5. Knee extensors 3+/5. Knee flexors 4-/5. Ankle dorsiflexors/plantar flexors 4+/5 Left Lower Extremity: Hip flexors 4-/5. Knee extensors 3+/5. Knee flexors 4-/5. Ankle dorsiflexors/plantar flexors 4+/5 Sensation: Intact as to pain and pressure to distal B LE Bed Mobility/Transfers: Rolling independent Supine to sit independent Sit to supine independent Sit to stand supervision Stand to sit supervision Bed to chair supervision Chair to bed supervision Gait: Patient was able to tolerate level surface ambulation using a front-wheeled walker with standby assist provided by this therapist for 20 feet x5 with a total of 10 turns without will be diluted with oxygen saturation staying above 90% with 3 L of oxygen per minute. Kelvin dyspnea scale is at 1-2/10 (slight breathlessnes) after activity. Balance: Static Sitting: Normal Dynamic Sitting: Normal Static Standing: Fair Dynamic Standing: Fair Special Tests: Mobility Limitations Standardized Measure [facility] AM-PAC 6 clicks Basic Mobility Inpatient Short Form: Raw Score: 20 CMS Score: 36% deficit Informed Consent/Education: Patient instructed in purpose of PT consult and plan of care. Assessment: Patient is a 68-year-old male referred to physical therapy services with the diagnosis of community-acquired pneumonia and COPD exacerbation. Patient presents with clinical signs and symptoms consistent with medical status, as demonstrated by the following impairment level findings: Assessment: Patient is a [] year old [] referred to physical therapy services with the diagnosis of progression of []. Patient presents with clinical signs and symptoms consistent with current/admitting diagnoses that has resulted to mobility limitations, gait instability, generalized weakness, and lack of motor control as demonstrated by the following impairment level findings: 1. Decreased strength to B LE and B shoulder major muscle groups 2. Impaired balance 3. Impaired activity tolerance 4. Limitation of joint range of motion in Impairments are contributing to the following functional limitations: 1. Increased dependence with transfers 2. Inability to safely ambulate without assistive device and physical assistance 3. Increase completion time for mobility ADL performance 4. Increased fall risk 5. Inability to negotiate steps alone safely Patient is assessed as a Moderate 81475 complexity based on the following: History: Patient is a 68-year-old male with diagnosis of community-acquired pneumonia and COPD exacerbation also negatively impacted by comorbidities and past medical history as listed above Examination: Underlying impairments and functional limitations as noted above Presentation: Evolving Decision Makin moderate complexity Goals: Goals X1 week 1. Supine-Sit independent 2. Sit-Supine independent 3. Sit-Stand independent 4. Stand-Sit independent 5. Bed-Chair independent 6. Chair-Bed independent 7. Gait on level surface ambulation with no AD for at least 300 feet without report of pain nor dyspnea 8. Stairs independent while holding onto bilateral rails for at least 5 steps without report of pain nor dyspnea 9. Independent with home exercise program 10. Balance good for static and dynamic standing Plan of Care/Treatment Plan: 1-2x/day, 7 days/week x 1 week. Plan of care has been reviewed with the METAL HARDENER providing the service under Physical Therapy direction. Initiate Physical Therapy intervention for strengthening, bed mobility, transfers, gait, stairs, balance training, use of assistive device. DISCHARGE RECOMMENDATIONS: Patient will benefit from short-term home health physical therapy services in order to facilitate a smooth transition to home, evaluate home safety, reduce fall risk, and education/training for home health exercise program/functional maintenance program. TREATMENT CODE/TIME: 971 6-20 minutes, 54496 12 minutes, beginning at 16:02 PM.
--- NOTE | 2018-10-09 16:56 | IN_ITS ---
Date of service: 10/09/18 Time of Service: 16:02 PT Notes Inpatient Physical Therapy Evaluation Date: 10/09/2018 Referring Doctor: Milly Centeno NP PT Orders: PT CONSULT: Decreased ROM to bilateral shoulders and do conditioning in a chronic illness Precautions: Fall. Standard. Patient Profile/Admitting Diagnosis: Patient is a 68-year-old male who went to the ER on 10/07/2018 with chief complaints of cough, SOB, and body malaise. CT scan of the lungs revealed a right lower lobe pneumonia and with diagnosis made for community-acquired pneumonia and COPD exacerbation. Patient also presents with limitation of motion for bilateral shoulders due to previous childhood trauma to the right shoulder and a fall at her daughter's house in [facility] with him landing on his left shoulder. Patient states that he has had previous extensive physical therapy to bilateral shoulders but full range of motion has not been achieved. Patient reports that his been part of [facility] program in [place], [place] where he is a recipient of methadone treatment for the past 6 months now. PMHX: Medical History Anxiety (Chronic) Back pain (Chronic) COPD (chronic obstructive pulmonary disease) (Chronic) Depression (Chronic) GERD (gastroesophageal reflux disease) (Chronic) Insomnia (Chronic) Macrocytosis (Chronic) Numbness and tingling in right hand (Chronic) Right knee DJD (Chronic) Tobacco abuse (Chronic) Surgical History History of right knee surgery (Inactive) History of shoulder surgery (Inactive) Hx of tonsillectomy (Inactive) Previous back surgery (Inactive) Social History/Home Situation: Patient lives with his son's ex-'s house in [facility] where he plans to go home to upon discharge from this hospital. He states that it is a single floor ranch-style home with 3 steps to enter rail on the right side going up. He states that he has stopped using a cane because it has made his hands and fingers numb although today with the use of the walker he does not report any sensory changes in both hands and fingers. Patient states he smokes 2-3 cigarettes/day and has stopped drinking for the past 20 years. He is able to make his own meals and has been ambulatory without any assistive device at home he states he has 15 feet to walk to the bathroom and 30 feet from the inside of the house to get into the car door outside. Furthermore, he states that he was doing some grocery shopping and managing well with it as long as somebody drives him Equipment Owned/DME: Has a walker and cane. He also has a wheelchair. He states though that he does not make use of any of them. Subjective: Patient seen resting lying in bed and is agreeable to PT consult. Patient states My shoulders have been like this for quite a while now,my right I injured when I was in high school and my left I hurt when I fell down the stairs and my daughter's house in [facility] several months ago. Objective: General Observation: Patient lying in bed. PICC line in the right UE. No swelling to BLE observed. Mental Status: Alert and oriented x3 Pain: Denies. 0/10. ROM: Right Upper Extremity: Shoulder flexion 30 degrees. Shoulder abduction 30 degrees. Left Upper Extremity: Shoulder flexion 30 degrees. Shoulder abduction 30 degrees. Right Lower Extremity: WFL Left Lower Extremity: WFL Strength: Right Upper Extremity: Shoulder flexors 3-/5. Shoulder abductors 3-/5. Elbow flexors 3+/5. Elbow extensors 3+/5. Web Feeder weak but functional. Left Upper Extremity: Shoulder flexors 3-/5. Shoulder abductors 3-/5. Elbow flexors 3+/5. Elbow extensors 3+/5. Web Feeder weak but functional. Right Lower Extremity: Hip flexors 4-/5. Knee extensors 3+/5. Knee flexors 4- /5. Ankle dorsiflexors/plantar flexors 4+/5 Left Lower Extremity: Hip flexors 4-/5. Knee extensors 3+/5. Knee flexors 4- /5. Ankle dorsiflexors/plantar flexors 4+/5 Sensation: Intact as to pain and pressure to distal B LE Bed Mobility/Transfers: Rolling independent Supine to sit independent Sit to supine independent Sit to stand supervision Stand to sit supervision Bed to chair supervision Chair to bed supervision Gait: Patient was able to tolerate level surface ambulation using a front- wheeled walker with standby assist provided by this therapist for 20 feet x5 with a total of 10 turns without will be diluted with oxygen saturation staying above 90% with 3 L of oxygen per minute. Kelvin dyspnea scale is at 1-2/10 (slight breathlessnes) after activity. Balance: Static Sitting: Normal Dynamic Sitting: Normal Static Standing: Fair Dynamic Standing: Fair Special Tests: Mobility Limitations Standardized Measure [facility] AM-PAC 6 clicks Basic Mobility Inpatient Short Form: Raw Score: 20 CMS Score: 36% deficit Informed Consent/Education: Patient instructed in purpose of PT consult and plan of care. Assessment: Patient is a 68-year-old male referred to physical therapy services with the diagnosis of community-acquired pneumonia and COPD exacerbation. Patient presents with clinical signs and symptoms consistent with medical status, as demonstrated by the following impairment level findings: Assessment: Patient is a [] year old [] referred to physical therapy services with the diagnosis of progression of []. Patient presents with clinical signs and symptoms consistent with current/admitting diagnoses that has resulted to mobility limitations, gait instability, generalized weakness, and lack of motor control as demonstrated by the following impairment level findings: 1. Decreased strength to B LE and B shoulder major muscle groups 2. Impaired balance 3. Impaired activity tolerance 4. Limitation of joint range of motion in Impairments are contributing to the following functional limitations: 1. Increased dependence with transfers 2. Inability to safely ambulate without assistive device and physical assistance 3. Increase completion time for mobility ADL performance 4. Increased fall risk 5. Inability to negotiate steps alone safely Patient is assessed as a Moderate 64956 complexity based on the following: History: Patient is a 68-year-old male with diagnosis of community-acquired pneumonia and COPD exacerbation also negatively impacted by comorbidities and past medical history as listed above Examination: Underlying impairments and functional limitations as noted above Presentation: Evolving Decision Makin moderate complexity Goals: Goals X1 week 1. Supine-Sit independent 2. Sit-Supine independent 3. Sit-Stand independent 4. Stand-Sit independent 5. Bed-Chair independent 6. Chair-Bed independent 7. Gait on level surface ambulation with no AD for at least 300 feet without report of pain nor dyspnea 8. Stairs independent while holding onto bilateral rails for at least 5 steps without report of pain nor dyspnea 9. Independent with home exercise program 10. Balance good for static and dynamic standing Plan of Care/Treatment Plan: 1-2x/day, 7 days/week x 1 week. Plan of care has been reviewed with the SAND MOLDER providing the service under Physical Therapy direction. Initiate Physical Therapy intervention for strengthening, bed mobility, transfers, gait, stairs, balance training, use of assistive device. DISCHARGE RECOMMENDATIONS: Patient will benefit from short-term home health physical therapy services in order to facilitate a smooth transition to home, evaluate home safety, reduce fall risk, and education/training for home health exercise program/functional maintenance program. TREATMENT CODE/TIME: 971 6-20 minutes, 10697 12 minutes, beginning at 16:02 PM.
--- NOTE | 2018-10-09 17:32 | PDOC.CMPRO ---
Care Management Progress Note S/O: Sitting up on the edge of the bed visiting with a friend. Still receiving oxygen via nasal cannula. Says he is feeling better even though his CXR does not show any improvement. Looking forward to getting back home with his daughter and family. A: 68 y.o. male admitted for RLL Pneumonia P: Eladio will return home when medically cleared for discharge and no services are needed. Family will transport.
[2018-10-09] MEDS: Senna TAB 1 TAB PO (19:09)
[2018-10-09] MEDS: Mometasone 220 MCG 14 DOSE INHALER 1 PUFF IH (19:09)
[2018-10-09] MEDS: Polyethylene Glycol 3350 17 GM PACKET PO (19:09)
[2018-10-10] VITALS (7 sets, daily range): BP systolic 115–138; BP diastolic 80–89; PULSE 71–89; RESP 2–24; TEMP 35.9–36.8; O2SAT 92–97
[2018-10-10] MEDS: methylPREDNISolone SUCC 125 MG VIAL 60 MG IVP ×2 (01:27→10:56)
--- NOTE | 2018-10-10 07:28 | MERGE_ITS ---
*[facility]* *[facility]* [address] [place] [address] Date of study: 10/10/2018 Transthoracic Echocardiography M-mode, complete 2D, complete spectral Doppler, and color Doppler *STUDY CONCLUSIONS* Summary: 1. Left ventricle: The cavity size was normal. Systolic function was normal. The estimated ejection fraction was 60-65%. Findings consistent with diastolic dysfunction. There was no evidence of elevated ventricular filling pressure by Doppler parameters. 2. Aortic valve: There was mild stenosis. Peak velocity (S): 2m/sec. Mean gradient (S): 9.4mm Hg. VTI ratio of LVOT to aortic valve: 0.42. Valve area (VTI): 1.3cm^2. 3. Mitral valve: There was mild regurgitation. 4. Left atrium: The atrium was mildly dilated. 5. Atrial septum: No defect or patent foramen ovale was identified. 6. Pulmonary arteries: Pulmonary systolic pressure was in the range of 35mm Hg to 45mm Hg. 7. Inferior vena cava: The vessel was patent and normal in size. The respirophasic diameter changes were in the normal range (greater than or equal to 50%), consistent with normal central venous pressure. *PATIENT PRESENTATION* Height: 167.6cm ((66in) ) S/D Pressure: 131 / 84 Weight: 76.2kg ((167.6lb) ) BSA: 1.9m^2 Test start time: 07:40 AM. Test stop time: 08:40 AM. 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 This study was interpreted by [facility]. Pertinent images and digital data are archived for permanent storage and are available for subsequent review. No prior study was available for comparison. Study status: Routine. Transthoracic echocardiography. M-mode, complete 2D, complete spectral Doppler, and color Doppler. A Transthoracic Echocardiogram was performed. Scanning was performed from the parasternal, apical, subcostal, and suprasternal notch acoustic windows. Images were obtained using an [id number] cardiac ultrasound machine. Image quality was adequate. Study completion: The patient tolerated the procedure well. History: PMH: New CHF? *CARDIAC ANATOMY* Left ventricle: The cavity size was normal. Systolic function was normal. The estimated ejection fraction was 60-65%. The tissue Doppler parameters were abnormal. Findings consistent with diastolic dysfunction. There was no evidence of elevated ventricular filling pressure by Doppler parameters. Aortic valve: Moderately thickened, moderately calcified leaflets. Doppler: There was mild stenosis. There was no regurgitation. VTI ratio of LVOT to aortic valve: 0.42. Valve area (VTI): 1.3cm^2. Indexed valve area (VTI): 0.7cm^2/m^2. Peak velocity ratio of LVOT to aortic valve: 0.39. Valve area (Vmax): 1.2cm^2. Indexed valve area (Vmax): 0.6cm^2/m^2. Mean velocity ratio of LVOT to aortic valve: 0.38. Valve area (Vmean): 1.2cm^2. Indexed valve area (Vmean): 0.6cm^2/m^2. Mean gradient (S): 9.4mm Hg. Peak gradient (S): 15.9mm Hg. Aorta: Aortic root: The aortic root was normal in size. Ascending aorta: The ascending aorta was normal in size. Mitral valve: Doppler: There was no evidence for stenosis. There was mild regurgitation. Valve area by pressure half-time: 3.5cm^2. Indexed valve area by pressure half-time: 1.8cm^2/m^2. Left atrium: The atrium was mildly dilated. Atrial septum: No defect or patent foramen ovale was identified. Right ventricle: Poorly visualized. Pulmonic valve: Doppler: There was no evidence for stenosis. There was no significant regurgitation. Tricuspid valve: Doppler: There was mild regurgitation. Pulmonary artery: Poorly visualized. Pulmonary systolic pressure was in the range of 35mm Hg to 45mm Hg. Right atrium: The atrium was normal in size. Pericardium: There was no pericardial effusion. Systemic veins: Inferior vena cava: Well visualized. The vessel was patent and normal in size. The respirophasic diameter changes were in the normal range (greater than or equal to 50%), consistent with normal central venous pressure. Baseline ECG: Normal sinus rhythm. Measurements Left ventricle Value Reference LV ID, ED, PLAX 3.9 cm 3.5 - 6.0 LV ID, ES, PLAX 2.7 cm 2.1 - 4.0 LV PW thickness, ED, PLAX 1.1 cm LV end-diastolic volume, 1-p A2C 62 ml LV ejection fraction, 1-p A2C 54 % LV end-diastolic volume, 1-p A4C 59 ml LV ejection fraction, 1-p A4C 53 % LV e', lateral 0.062 m/sec LV E/e', lateral 9 LV e', medial 0.057 m/sec LV E/e', medial 10 LV e', average 0.06 m/sec LV E/e', average 10 Ventricular septum Value Reference IVS thickness, ED, PLAX 1.1 cm LVOT Value Reference LVOT ID, A-P 2.0 cm LVOT area 3.2 cm^2 LVOT peak velocity, S 0.77 m/sec LVOT mean velocity, S 0.56 m/sec LVOT VTI, S 17.0 cm LVOT peak gradient, S 2.4 mm Hg LVOT mean gradient, S 1.4 mm Hg Stroke volume (SV), LVOT DP 54 ml Stroke index (SV/bsa), LVOT DP 28 ml/m^2 Aortic valve Value Reference Aortic valve peak velocity, S 2 m/sec Aortic valve mean velocity, S 1.48 m/sec Aortic valve VTI, S 40.0 cm Aortic mean gradient, S 9.4 mm Hg Aortic peak gradient, S 15.9 mm Hg VTI ratio, LVOT/AV 0.42 Aortic valve area, VTI 1.3 cm^2 Velocity ratio, peak, LVOT/AV 0.39 Aortic valve area, peak velocity 1.2 cm^2 Velocity ratio, mean, LVOT/AV 0.38 Aortic valve area, mean velocity 1.2 cm^2 Aortic valve area/bsa, mean velocity 0.6 cm^2/m^2 Aorta Value Reference Aortic root ID, ED 3.5 cm Ascending aorta ID, A-P, S 2.9 cm Left atrium Value Reference LA ID, A-P, ES 2.7 cm LA ID/bsa, A-P 1.4 cm/m^2 <=2.2 LA area, ES, A4C 18.6 cm^2 8.8 - 23.4 LA area, ES, A2C 16 cm^2 LA volume/bsa, ES, 1-p A4C 35 ml/m^2 LA volume, ES, 2-p 49 ml LA volume/bsa, ES, 2-p 26 ml/m^2 LA/aortic root ratio 0.77 Mitral valve Value Reference Mitral E-wave peak velocity 0.57 m/sec Mitral A-wave peak velocity 0.91 m/sec Mitral deceleration time 218 ms 150 - 230 Mitral pressure half-time 63 ms Mitral E/A ratio, peak 0.63 Mitral valve area, PHT, DP 3.5 cm^2 Tricuspid valve Value Reference Tricuspid regurg peak velocity 3 m/sec Tricuspid peak RV-RA gradient 35.2 mm Hg Right atrium Value Reference RA area, ES, A4C 12.1 cm^2 8.3 - 19.5 Legend: (L) and (H) jaki values outside specified reference range. I have personally reviewed the images and have reviewed and edited the reported findings. Electronically signed by Ti Burnham MD 10/10/2018 17:57
[2018-10-10] MEDS: Methadone Liquid 10 MG/ML 95 MG PO (09:00)
[2018-10-10] MEDS: Normal Saline Flush 10 ML SYR IVP ×3 (09:13→21:55)
[2018-10-10] MEDS: Pantoprazole 40 MG VIAL IVP (09:13)
[2018-10-10] MEDS: Polyethylene Glycol 3350 17 GM PACKET PO (09:13)
[2018-10-10] MEDS: Esomeprazole 20 MG CAPCR PO (09:14)
[2018-10-10] MEDS: Doxycycline Hyclate 100 MG CAP PO ×2 (09:14→19:53)
[2018-10-10] MEDS: Cyclobenzaprine 10 MG TAB PO ×3 (09:14→19:53)
[2018-10-10] MEDS: Docusate Sodium 100 MG CAP PO (09:14)
[2018-10-10] MEDS: guaiFENesin 600 MG TABCR PO ×2 (09:14→19:52)
[2018-10-10] MEDS: Senna TAB 1 TAB PO ×2 (09:14→19:52)
[2018-10-10 09:35] LABS: Abs Immature Grans 0.05 k/cumm (0.0-0.09); Absolute Basophil Count 0.01 k/cumm (0.0-0.2); Basophils % 0.1; HCT 42.4 % (40.0-50.0); HGB 13.8 g/dL (13.5-17.5); Immature Grans % 0.4; Lymphocytes % 5.5; Mean Corp. HGB Concentration 32.5 g/dL (32.0-36.0); Mean Corpuscular Hemoglobin 30.2 pg (27.0-33.0); Mean Corpuscular Volume 92.8 fL (80-95); Mean Platelet Volume 10.1 fL (8.0-11.0); Monocytes % 2.7; Neutrophils % 91.3; Platelet Count 268 x1000/uL (130-400); RBC 4.57 m/cumm (4.50-6.00); RBC Distribution Width 13.8 % (11.8-14.1); White Blood Cell Count 13.91 k/cumm (4.4-10.8)
[2018-10-10 09:38] LABS: Anion Gap 6.6 mmol/L (3-11); BUN 14 mg/dL (7-18); CO2 28.4 mmol/L (21.0-32.0); CREATININE 0.76 mg/dL (0.70-1.30); Calcium 9.3 mg/dL (8.5-10.1); Chloride 100 mmol/L (98-107); Glucose 123 mg/dL (70-100); Magnesium 2.2 mg/dL (1.8-2.4); Potassium 4.2 mmol/L (3.5-5.1); Sodium 135 mmol/L (136-145)
[2018-10-10 09:43] LABS: Absolute Lymphocyte Count 0.77 k/cumm (1.2-3.4); Absolute Monocyte Count 0.38 k/cumm (0.11-0.7)
[2018-10-10] MEDS: Budesonide/Formoterol 80/4.5 6.9 GM 60 PUFF INH IH (10:22)
[2018-10-10] MEDS: Mometasone 220 MCG 14 DOSE INHALER 1 PUFF IH ×2 (10:22→19:52)
--- NOTE | 2018-10-10 10:44 | OT.INIE ---
Occupational Therapy Notes Inpatient Occupational Therapy Evaluation Date: 10/10/18 Referring Doctor:Milly Centeno NP OT Orders: decreased ROM to (B) shoulders and deconditioning in setting of chronic illness. Precautions: Fall, Standard PATIENT PROFILE/ADMITTING DIAGNOSIS: Pt is a 68 year old male who was admitted through the ER on 10/07/18 for (R) lower lobe pneumonia. Past Medical History: Anxiety (Chronic),Back pain (Chronic),COPD (chronic obstructive pulmonary disease) (Chronic),Depression (Chronic),GERD (gastroesophageal reflux disease) (Chronic),Insomnia (Chronic),Macrocytosis (Chronic),Numbness and tingling in right hand (Chronic),Right knee DJD (Chronic) Tobacco abuse (Chronic)History of right knee surgery,History of shoulder surgery,Hx of tonsillectomy Social History/Home Situation: Pt reports that he lives with his daughter, her and two children in a private home. He reports that through the garage there are 3 steps to enter. His bedroom resides on the 2nd floor. His baseline for ADLs/IADLs is that he is (I) with dressing, toileting and bathing. However pt reports that he baths standing in the shower and gets dizzy at times. OT does recommend that pt get a shower chair or bench for the shower to increase his safety. Pt brushes his teeth standing at the sink and performs stairs one step at a time. Pt does not drive he utilizes [facility] as he states he gave his license up a couple years ago due to not being able to afford a car or the insurance for it. Equipment owned/DME: walker and cane and he uses them as needed. SUBJECTIVE: Pt was sitting on side of bed when OT arrived. He was agreeable to OT consult but reports that he has been in and out of his room all morning for tests. He reports that he is tired. OBJECTIVE: General Observation: Nasal cannula O2 Mental Status: A&Ox3 Pain: No c/o pain ROM: RUE Shoulder flexion limited to 40* AROM d/t old rotator cuff issue from high school, elbow WNL, hand WNL L UE Shoulder flexion limited to 40* AROM d/t old rotator cuff issue from falling down stairs in 2013, elbow WNL, hand WNL STRENGTH: RUE Shoulder flexion 3/5, bicep 3+/5, tricep 3+/5, marketing project lead was strong LUE Shoulder flexion 3/5, bicep 3+/5, tricep 3+/5, marketing project lead was strong but less than (R) FUNCTIONAL MOBILITY/ADLS: Sit-Stand SBA, FWW Stand-sit SBA, FWW BALANCE: Static sitting Normal Dynamic Sitting Normal pt was able to perform functional reaching for objects on the floor with increased (I) as well as when reaching for items on table. Static Standing Good SPECIAL TESTS: Daily Activity Limitations Standardized Measure [facility] AM -PAC ?6 clicks? Daily Activity Inpatient Short Form: Raw score: 20 Standardized score: 42.03 CMS score: 38.32% INFORMED CONSENT/EDUCATION: Pt instructed in purpose of OT Consult and plan of care. ASSESSMENT: Patient is a 68-year-old male referred to occupational therapy services with diagnosis of decreased ROM to (B) shoulder and deconditioning in setting of chronic illness with admission to [facility] for (R) lower lobe pneumonia. Patient presents with clinical signs and symptoms consistent with dx, as demonstrated by the following impairment level findings: Decreased (B) functional ROM, decreased functional strengthening, decreased functional activity tolerance, current use of O2 during ADL routines. Impairments are contributing to the following functional limitations: Decreased functional activity tolerance, decreased (I) in above head functional use of (B) UE, chronic pain and decreased ROM. AMPAC score 20, CMS score 38.32% Patient is assessed as a Moderate 57394 complexity based on the following: History: See Above Examination: See Above Presentation: Evolving Decision Making: AMPAC score 20, CMS score 38.32% GOALS Goals x1 week in hospital setting 1. Transfers (I), FWW 2. Dressing Sitting in chair pt will be able to (I) don and doff (B) socks, put on pants, and dress UE (I) 3. Bathing Standing at sink with FWW, pt will be able to (I) wash UE and in sitting wash LE 4. Toileting (I) on toilet 5. Eating (I) 6. Grooming standing at sink (I) with brushing teeth PLAN OF CARE/TREATMENT PLAN: 1x/day, 5 days/ week x 1week Initiate Occupational Therapy Services for bathing, dressing, grooming, toileting, eating, transfer training. DISCHARGE RECOMMENDATIONS OT recommends that pt return home when medically cleared per MD with home health services. OT recommends that pt get a shower chair or bench to decrease fall risk and increase pts safety during bathing routine. TREATMENT TIME/MINUTES/CODES 94775, 20 minutes (09:55) Estephanie Osman OTR/[facility]
[2018-10-10] MEDS: Gabapentin 300 MG CAP PO (10:55)
--- NOTE | 2018-10-10 11:06 | OTIE_ITS ---
Occupational Therapy Notes Inpatient Occupational Therapy Evaluation Date: 10/10/18 Referring Doctor:Milly Centeno NP OT Orders: decreased ROM to (B) shoulders and deconditioning in setting of chronic illness. Precautions: Fall, Standard PATIENT PROFILE/ADMITTING DIAGNOSIS: Pt is a 68 year old male who was admitted through the ER on 10/07/18 for (R) lower lobe pneumonia. Past Medical History: Anxiety (Chronic),Back pain (Chronic),COPD (chronic obstructive pulmonary disease) (Chronic),Depression (Chronic),GERD (gastroesophageal reflux disease) (Chronic),Insomnia (Chronic),Macrocytosis (Chronic),Numbness and tingling in right hand (Chronic),Right knee DJD (Chronic) Tobacco abuse (Chronic)History of right knee surgery,History of shoulder surgery,Hx of tonsillectomy Social History/Home Situation: Pt reports that he lives with his daughter, her and two children in a private home. He reports that through the garage there are 3 steps to enter. His bedroom resides on the 2nd floor. His baseline for ADLs/IADLs is that he is (I) with dressing, toileting and bathing. However pt reports that he baths standing in the shower and gets dizzy at times. OT does recommend that pt get a shower chair or bench for the shower to increase his safety. Pt brushes his teeth standing at the sink and performs stairs one step at a time. Pt does not drive he utilizes [facility] as he states he gave his license up a couple years ago due to not being able to afford a car or the insurance for it. Equipment owned/DME: walker and cane and he uses them as needed. SUBJECTIVE: Pt was sitting on side of bed when OT arrived. He was agreeable to OT consult but reports that he has been in and out of his room all morning for tests. He reports that he is tired. OBJECTIVE: General Observation: Nasal cannula O2 Mental Status: A&Ox3 Pain: No c/o pain ROM: RUE Shoulder flexion limited to 40* AROM d/t old rotator cuff issue from high school, elbow WNL, hand WNL L UE Shoulder flexion limited to 40* AROM d/t old rotator cuff issue from falling down stairs in 2013, elbow WNL, hand WNL STRENGTH: RUE Shoulder flexion 3/5, bicep 3+/5, tricep 3+/5, supervisor sound technician was strong LUE Shoulder flexion 3/5, bicep 3+/5, tricep 3+/5, supervisor sound technician was strong but less than (R) FUNCTIONAL MOBILITY/ADLS: Sit-Stand SBA, FWW Stand-sit SBA, FWW BALANCE: Static sitting Normal Dynamic Sitting Normal pt was able to perform functional reaching for objects on the floor with increased (I) as well as when reaching for items on table. Static Standing Good SPECIAL TESTS: Daily Activity Limitations Standardized Measure [facility] AM -PAC ?6 clicks? Daily Activity Inpatient Short Form: Raw score: 20 Standardized score: 42.03 CMS score: 38.32% INFORMED CONSENT/EDUCATION: Pt instructed in purpose of OT Consult and plan of care. ASSESSMENT: Patient is a 68-year-old male referred to occupational therapy services with diagnosis of decreased ROM to (B) shoulder and deconditioning in setting of chronic illness with admission to [facility] for (R) lower lobe pneumonia. Patient presents with clinical signs and symptoms consistent with dx, as demonstrated by the following impairment level findings: Decreased (B) functional ROM, decreased functional strengthening, decreased functional activity tolerance, current use of O2 during ADL routines. Impairments are contributing to the following functional limitations: Decreased functional activity tolerance, decreased (I) in above head functional use of (B) UE, chronic pain and decreased ROM. AMPAC score 20, CMS score 38.32% Patient is assessed as a Moderate [id number] complexity based on the following: History: See Above Examination: See Above Presentation: Evolving Decision Making: AMPAC score 20, CMS score 38.32% GOALS Goals x1 week in hospital setting 1. Transfers (I), FWW 2. Dressing Sitting in chair pt will be able to (I) don and doff (B) socks, put on pants, and dress UE (I) 3. Bathing Standing at sink with FWW, pt will be able to (I) wash UE and in sitting wash LE 4. Toileting (I) on toilet 5. Eating (I) 6. Grooming standing at sink (I) with brushing teeth PLAN OF CARE/TREATMENT PLAN: 1x/day, 5 days/ week x 1week Initiate Occupational Therapy Services for bathing, dressing, grooming, toileting, eating, transfer training. DISCHARGE RECOMMENDATIONS OT recommends that pt return home when medically cleared per MD with home health services. OT recommends that pt get a shower chair or bench to decrease fall risk and increase pts safety during bathing routine. TREATMENT TIME/MINUTES/CODES [id number], 20 minutes (09:55) Estephanie Osman OTR/[facility]
[2018-10-10] MEDS: Nystatin POWDER 60 GM JAR TP ×2 (13:30→19:51)
--- NOTE | 2018-10-10 13:51 | PT.INTREAT ---
Date of service: 10/10/18 Time of Service: 13:51 PT Notes Inpatient Physical Therapy Treatment Note [facility] Date: 10/10/18 PRECAUTIONS: Fall SUBJECTIVE: Eladio is agreeable to PT after some encouragement. OBJECTIVE: PAIN: No c/o pain BED MOBILITY/TRANSFERS Sit-stand: S Stand-sit: S GAIT Assistive Device: FWW Weight bearing: Full Assist: SBA Distance: 100' x2 Deviation: Cueing for FWW mechanics STAIRS: Up/down 3x4 and 2x6 using B rails and a step-to pattern with supervision ASSESSMENT: Patient tolerated session with SOB and increased fatigue with gait training. He requries cueing for safety with FWW during gait training, however was able to tolerate a progression in gait distance. He would benefit from continued participation in gait and transfer training for improved mobility. PLAN: Continue with PT's POC TREATMENT CODE/TIME: 15 minutes; [id number]
[2018-10-10] MEDS: Enoxaparin 40 MG/0.4 ML SYR SC (14:20)
--- NOTE | 2018-10-10 15:05 | CMPROGNOTE_ITS ---
- If Service Date Differs Date of service: 10/10/18 Time of Service: 15:04 Care Management Progress Note S/O: Eladio is sitting up in bed this morning when this scenario writer visits, he is pleasant and receptive to discussion. Eladio continues to require oxygen and per morning report RT will work with Eladio on weaning oxygen. Eladio is also scheduled to have an Echo today. No change in DC plan. A: 68 y.o. male admitted for RLL Pneumonia P: Eladio will return home when medically cleared for discharge and no services are needed. Family will transport.
--- NOTE | 2018-10-10 15:08 | PT.INNT ---
Date of service: 10/10/18 Time of Service: 15:08 PT Notes 10/10/18 Attempt 1: Patient refused afternoon PT session. Attempt 2: Patient sleeping soundly. Will attempt to resume PT services tomorrow morning.
--- NOTE | 2018-10-10 16:23 | PGE_ITS ---
Date of Service Date of service: 10/10/18 Time of Service: 16:16 Assessment and Plan (1) CAP (community acquired pneumonia): Start date: 10/10/18 Start time: 16:04 Current visit: Yes Status: Acute Day 4 of ceftriaxone and doxycycline. Sounding better. still having rhonchi to Right side. Left side with diminished lung sounds. Continue steroids, duonebs, albuterol, asmanex, (2) COPD with acute exacerbation: Start date: 10/10/18 Start time: 16:10 Current visit: Yes Status: Acute In the setting of pneumonia, see above (3) Pharyngitis: Start date: 10/10/18 Start time: 16:14 Current visit: Yes Status: Acute c/o hoarse voice and throat is erythemic, strept culture ordered, ce tirizine started and changed nexium to protonix BID in the setting that this could be worsening GERD from steroid use (4) Tobacco abuse: Start date: 10/10/18 Start time: 16:11 Current visit: Yes Status: Acute continue to assess readiness to quit (5) GERD (gastroesophageal reflux disease): Start date: 10/10/18 Start time: 16:11 Current visit: Yes Status: Chronic protonix (6) Edema leg: Start date: 10/10/18 Start time: 16:12 Current visit: Yes Status: Acute +2 to RLE and +1 to LLE continue to monitor. Echo done and waiting on results (7) Chronic pain: Start date: 10/10/18 Start time: 16:12 Current visit: Yes Status: Chronic take methadone will continue home dose (8) Range of motion deficit: Start date: 10/10/18 Start time: 16:12 Current visit: Yes Status: Acute Limited ROM to bilateral shoulders, continue PT/OT (9) DVT prophylaxis: Start date: 10/10/18 Start time: 16:12 Current visit: Yes Status: Acute enoxaparin Subcu (10) Constipation: Start date: 10/10/18 Start time: 16:12 Current visit: Yes Status: Acute takes methadone, chronic issue bowel regimen started of senekot and miralax scheduled. Large BM today with improving lung sounds to left lung. Abd softer and nontender Subjective Patient reports: feels better Interval history since last seen: He is feeling better today. Breathing better, he has had two large BM. Day 4 of doxycycline and [place]. He does c/o a hoarse voice with pharyngitis. Strep culture was ordered, unlikely strep as he has been on antibiotics for four days, started on cetirizine, increased PPI to BID as this could be worsening GERD from steroid use. Right lung with rhonchi and left lung diminished. Continue duonebs, steroids, inhaled steroid, albuterol and antibiotics. Exam Const General: cooperative and no acute distress Orientation: alert, awake and oriented x3 HENMT Head: normal to inspection Eyes General: appearance normal, both eyes and all related structures Neck Lymphatic: no lymphadenopathy noted and no lymphedema noted Chest Chest: normal inspection of the chest Resp Effort & Inspection: able to speak in complete sentences and cough Auscultation: diminished lung sounds (to left) and rhonchi (rhonchi) Cardio Rate: regular rate Rhythm: regular rhythm Heart Sounds: S1 normal and S2 normal GI Inspection: normal to inspection Palpation: soft and no hepatosplenomegaly Skin General skin exam: no rashes or lesions noted Neuro General: alert, awake and oriented x3 Extrem Other: +2 pitting edema to right leg, + 1 pitting edema to R leg Psych Appearance: grossly normal Objective Objective Clinical Data: Abnormal lab results 10/10/18 10/10/18 Range/Units 09:15 09:15 WBC 13.91 H D (4.4-10.8) k/cumm Absolute Neutrophils 12.70 H (1.2-6.7) k/cumm Absolute Lymphocytes 0.77 L (1.2-3.4) k/cumm Sodium 135 L (136-145) mmol/L Glucose 123 H (70-100) mg/dL Vital Signs Temperature 36.4 C L 10/10/18 11:15 Temperature Source Tympanic 10/10/18 11:15 Pulse 71 10/10/18 11:15 Pulse Rhythm Regular 10/10/18 11:20 Pulse 89 10/07/18 09:31 Respiratory Rate 20 10/10/18 11:15 Respiratory Effort Incrsd Work of Breathing 10/10/18 11:20 Respiratory Depth Shallow 10/10/18 11:20 Respiratory Pattern Normal 10/10/18 11:20 Blood Pressure 115/80 10/10/18 11:15 Blood Pressure Mean 93 10/07/18 09:31 Blood Pressure Position Supine 10/07/18 06:06 Pulse Oximetry 93 L 10/10/18 11:15 Oxygen Delivery Method Nasal Cannula 10/10/18 11:15 Oxygen Flow Rate 2 10/10/18 11:15 Pain Level 9 10/10/18 09:00 Comment 10/07/18 10:27 Intake & Output 10/09/18 10/10/18 10/10/18 23:59 11:59 23:59 Intake Total 940 / 1270 270 / 520 250 / 520 Output Total 400 / 1250 500 / 700 200 / 700 Balance 540 / 20 -230 / -180 50 / -180 Intake: IV 20 / 110 20 / 20 Oral 920 / 1160 250 / 500 250 / 500 Output: Urine 400 / 1250 500 / 700 200 / 700 Other: Urine Color Yellow Yellow Yellow Urine Appearance Clear Clear Clear Urine Odor Normal Stool Size Large Stool Characteristics Soft Liquid Voiding Methods Urinal Laboratory Results WBC 13.91 k/cumm (4.4-10.8) H D 10/10/18 09:15 RBC 4.57 m/cumm (4.50-6.00) 10/10/18 09:15 Hgb 13.8 g/dL (13.5-17.5) 10/10/18 09:15 Hct 42.4 % (40.0-50.0) 10/10/18 09:15 MCV 92.8 fL (80-95) 10/10/18 09:15 MCH 30.2 pg (27.0-33.0) 10/10/18 09:15 MCHC 32.5 g/dL (32.0-36.0) 10/10/18 09:15 RDW 13.8 % (11.8-14.1) 10/10/18 09:15 Plt Count 268 x1000/uL (130-400) 10/10/18 09:15 MPV 10.1 fL (8.0-11.0) 10/10/18 09:15 Immature Gran % 0.4 10/10/18 09:15 Neutrophils % 91.3 10/10/18 09:15 Lymphocytes % 5.5 10/10/18 09:15 Monocytes % 2.7 10/10/18 09:15 Eosinophils % 0.0 10/10/18 09:15 Basophils % 0.1 10/10/18 09:15 Absolute Neutrophils 12.70 k/cumm (1.2-6.7) H 10/10/18 09:15 Absolute Lymphocytes 0.77 k/cumm (1.2-3.4) L 10/10/18 09:15 Absolute Monocytes 0.38 k/cumm (0.11-0.7) 10/10/18 09:15 Absolute Eosinophils 0.00 k/cumm (0.0-0.7) 10/10/18 09:15 Absolute Basophils 0.01 k/cumm (0.0-0.2) 10/10/18 09:15 Sodium 135 mmol/L (136-145) L 10/10/18 09:15 Potassium 4.2 mmol/L (3.5-5.1) 10/10/18 09:15 Chloride 100 mmol/L (98-107) 10/10/18 09:15 Carbon Dioxide 28.4 mmol/L (21.0-32.0) 10/10/18 09:15 Anion Gap 6.6 mmol/L (3-11) 10/10/18 09:15 BUN 14 mg/dL (7-18) 10/10/18 09:15 Creatinine 0.76 mg/dL (0.70-1.30) 10/10/18 09:15 Estimated GFR/1.73 m2 >= 60.00 (mL/min/1.73m2) 10/10/18 09:15 Glucose 123 mg/dL (70-100) H 10/10/18 09:15 Lactate 1.3 mmol/l (0.6-1.4) 10/07/18 06:20 Calcium 9.3 mg/dL (8.5-10.1) 10/10/18 09:15 Magnesium 2.2 mg/dL (1.8-2.4) 10/10/18 09:15 Total Bilirubin 0.5 mg/dL (0.2-1.0) 10/07/18 06:20 AST 25 U/L (15-37) 10/07/18 06:20 ALT 14 U/L (12-78) 10/07/18 06:20 Alkaline Phosphatase 92 U/L (46-116) 10/07/18 06:20 Troponin I < 0.02 ng/mL (0.00-0.06) 10/07/18 06:20 NT-Pro-B Natriuret Pep 379 pg/mL (-299) H 10/09/18 13:20 Total Protein 8.5 g/dL (6.4-8.2) H 10/07/18 06:20 Albumin 3.0 g/dL (3.4-5.0) L 10/07/18 06:20 Urine Color Dark yellow (Yellow) 10/07/18 09:49 Urine Clarity Clear 10/07/18 09:49 Urine pH 6.0 (5-8) 10/07/18 09:49 Ur Specific [place] >= 1.030 (1.005-1.025) H 10/07/18 09:49 Urine Protein Negative mg/dL (Negative) 10/07/18 09:49 Urine Ketones 80 mg/dL (Negative) H 10/07/18 09:49 Urine Blood Negative (Negative) 10/07/18 09:49 Urine Nitrite Negative (Negative) 10/07/18 09:49 Urine Bilirubin Small (Negative) H 10/07/18 09:49 Urine Urobilinogen 4.0 EU/dL (Up TO 0.2) H 10/07/18 09:49 Ur Leukocyte Esterase Negative (Negative) 10/07/18 09:49 Urine Glucose Negative mg/dL (Negative) 10/07/18 09:49
[2018-10-10] MEDS: Albuterol/Ipratropium 3 ML UPD VIAL UPD (19:51)
[2018-10-10] MEDS: Pantoprazole 40 MG TABCR PO (19:52)
[2018-10-10] MEDS: methylPREDNISolone SUCC 40 MG VIAL IVP (21:55)
[2018-10-11] VITALS (10 sets, daily range): BP systolic 115–132; BP diastolic 71–87; PULSE 22–96; RESP 4–22; TEMP 36.2–36.7; O2SAT 90–95
[2018-10-11] MEDS: Albuterol/Ipratropium 3 ML UPD VIAL UPD ×2 (00:01→03:47)
[2018-10-11 06:47] LABS: Abs Immature Grans 0.04 k/cumm (0.0-0.09); Absolute Basophil Count 0.01 k/cumm (0.0-0.2); Absolute Monocyte Count 0.46 k/cumm (0.11-0.7); Absolute Neutrophil Count 8.71 k/cumm (1.2-6.7); Basophils % 0.1; HCT 39.7 % (40.0-50.0); HGB 12.8 g/dL (13.5-17.5); Immature Grans % 0.4; Lymphocytes % 7.1; Mean Corp. HGB Concentration 32.2 g/dL (32.0-36.0); Mean Corpuscular Hemoglobin 29.9 pg (27.0-33.0); Mean Corpuscular Volume 92.8 fL (80-95); Mean Platelet Volume 10.1 fL (8.0-11.0); Monocytes % 4.6; Neutrophils % 87.8; Platelet Count 225 x1000/uL (130-400); RBC 4.28 m/cumm (4.50-6.00); RBC Distribution Width 13.7 % (11.8-14.1); White Blood Cell Count 9.92 k/cumm (4.4-10.8)
[2018-10-11 06:55] LABS: Anion Gap 7.5 mmol/L (3-11); BUN 13 mg/dL (7-18); CO2 31.5 mmol/L (21.0-32.0); CREATININE 0.73 mg/dL (0.70-1.30); Calcium 8.8 mg/dL (8.5-10.1); Chloride 98 mmol/L (98-107); Glucose 117 mg/dL (70-100); Potassium 4.1 mmol/L (3.5-5.1); Sodium 137 mmol/L (136-145)
[2018-10-11] MEDS: guaiFENesin 600 MG TABCR PO ×2 (08:43→19:20)
[2018-10-11] MEDS: Cetirizine 10 MG TAB PO (08:43)
[2018-10-11] MEDS: Pantoprazole 40 MG TABCR PO ×2 (08:43→19:19)
[2018-10-11] MEDS: Doxycycline Hyclate 100 MG CAP PO ×2 (08:43→19:20)
[2018-10-11] MEDS: Cyclobenzaprine 10 MG TAB PO ×3 (08:43→19:20)
[2018-10-11] MEDS: Methadone Liquid 10 MG/ML 95 MG PO (08:45)
[2018-10-11] MEDS: Pantoprazole 40 MG VIAL IVP (08:48)
[2018-10-11] MEDS: Normal Saline Flush 10 ML SYR IVP ×3 (08:48→19:18)
[2018-10-11] MEDS: Nystatin POWDER 60 GM JAR TP ×2 (08:54→19:24)
[2018-10-11] MEDS: Mometasone 220 MCG 14 DOSE INHALER 1 PUFF IH ×2 (08:58→19:24)
--- NOTE | 2018-10-11 09:39 | PDOC.CMPRO ---
- If Service Date Differs Date of service: 10/11/18 Time of Service: 09:39 Care Management Progress Note S/O: Eladio is sitting up in bed this morning, he has just recently been for a walk with PT. Eladio states that this went well, and he is feeling better. Eladio continues to require oxygen as of this morning. No change in DC plan. A: 68 y.o. male admitted for RLL Pneumonia P: Eladio will return home when medically cleared for discharge and no services are needed. Family will transport.
[2018-10-11] MEDS: methylPREDNISolone SUCC 40 MG VIAL IVP (11:10)
--- NOTE | 2018-10-11 11:50 | PT.INTREAT ---
Date of service: 10/11/18 Time of Service: 11:51 PT Notes Inpatient Physical Therapy Treatment Note [facility] Date: 10/11/18 PRECAUTIONS: Fall SUBJECTIVE: Eladio is agreeable to participating in PT with some encouragement. OBJECTIVE: PAIN: Patient c/o R knee pain with gait training BED MOBILITY/TRANSFERS Supine-sit: I Sit-stand: S Stand-sit: S GAIT Assistive Device: No AD Weight bearing: Full Assist: SBA Distance: 250' Deviation: Seated rest x1, SOB VITALS: SaO2: 89-91% on 2L O2 via NC with gait training THEREX: Patient completed a LE strengthening program, as per flow sheet. He also performed functional [id number] exercises. ASSESSMENT: Patient tolerated session with c/o SOB and fatigue with gait training. He was able to tolerate a progression in gait distance without assistive device support. He would benefit from continued general conditioning for improved activity tolerance. PLAN: Continue with PT's POC TREATMENT CODE/TIME: 25 minutes; 14727, [id number]
--- NOTE | 2018-10-11 11:57 | PTTR_ITS ---
Date of service: 10/11/18 Time of Service: 11:51 PT Notes Inpatient Physical Therapy Treatment Note [facility] Date: 10/11/18 PRECAUTIONS: Fall SUBJECTIVE: Eladio is agreeable to participating in PT with some encouragement. OBJECTIVE: PAIN: Patient c/o R knee pain with gait training BED MOBILITY/TRANSFERS Supine-sit: I Sit-stand: S Stand-sit: S GAIT Assistive Device: No AD Weight bearing: Full Assist: SBA Distance: 250' Deviation: Seated rest x1, SOB VITALS: SaO2: 89-91% on 2L O2 via NC with gait training THEREX: Patient completed a LE strengthening program, as per flow sheet. He also performed functional [id number] exercises. ASSESSMENT: Patient tolerated session with c/o SOB and fatigue with gait training. He was able to tolerate a progression in gait distance without assistive device support. He would benefit from continued general conditioning for improved activity tolerance. PLAN: Continue with PT's POC TREATMENT CODE/TIME: 25 minutes; [id number], [id number]
[2018-10-11] MEDS: Enoxaparin 40 MG/0.4 ML SYR SC (13:52)
[2018-10-11] MEDS: Furosemide 20 MG/2 ML VIAL IVP (13:52)
--- NOTE | 2018-10-11 13:54 | W.PM.PROGNOT ---
Date of Service Date of service: 10/11/18 Time of Service: 13:54 Assessment and Plan (1) CAP (community acquired pneumonia): Current visit: Yes Status: Acute Improving. Currently on day #5 of Ceftriaxone and Doxycycline. Taper steroids, transition to oral. Change nebulizer treatments to PRN, not requiring supplemental oxygen. Continue current regimen, likely for discharge in the next 24-48 hours. (2) COPD with acute exacerbation: Current visit: Yes Status: Acute In the setting of pneumonia. Treatment as above. (3) GERD (gastroesophageal reflux disease): Current visit: Yes Status: Chronic PPI increased. Denies sore throat. Strep swab pending. (4) Tobacco abuse: Current visit: Yes Status: Acute Continue to encourage smoking cessation. (5) Edema leg: Current visit: Yes Status: Acute Continues to have edema to bilateral lower extremities. Echocardiogram shows LVEF of 60-65%, findings consistent with diastolic dysfunction. With rales on lung exam and frothy sputum, possibly an element of fluid overload, will give lasix IV 20mg for gentle diuresis. Apply TEDs. Continue to monitor. (6) Range of motion deficit: Current visit: Yes Status: Acute To bilateral shoulders. Continue PT/OT. (7) DVT prophylaxis: Current visit: Yes Status: Acute Subcutaneous lovenox. (8) Discharge planning issues: Current visit: Yes Status: Acute He is a FULL code. He will likely be ready for discharge within the next 24-48 hours. Subjective Interval history since last seen: Mr. Tripathi reports feeling better today. His shortness of breath is improving, he has mild shortness of breath with activity. He denies wheezing. He is coughing up small amounts of white, frothy sputum. He has been afebrile. He denies sore throat. He continues to have edema to his lower extremities. He denies chest pain/pressure, palpitations. He is eating and drinking with no nausea, vomiting or diarrhea. He had 3 large bowel movements yesterday. Exam Narrative Exam Narrative: General: elderly man sitting on the edge of the bed, in NAD, alert and oriented, pleasant and cooperative. HEENT: normocephalic, atraumatic, pupils equal and round, mucous membranes moist. Neck: supple, no JVD. Respiratory: respirations even and unlabored, lung sounds with rales to right base and middle lobe. No wheezing. Cardiovascular: heart with regular rate and rhythm, no murmur appreciated. GI: normoactive bowel sounds x4 quadrants, soft, nontender on palpation. Extremities:+1 Pitting edema to bilateral lower extremities. Pedal pulses palpable bilaterally. Objective Objective Clinical Data: Abnormal lab results 10/11/18 10/11/18 Range/Units 06:25 06:25 RBC 4.28 L (4.50-6.00) m/cumm Hgb 12.8 L (13.5-17.5) g/dL Hct 39.7 L (40.0-50.0) % Absolute Neutrophils 8.71 H (1.2-6.7) k/cumm Absolute Lymphocytes 0.70 L (1.2-3.4) k/cumm Glucose 117 H (70-100) mg/dL Vital Signs Temperature 36.3 C L 10/11/18 11:40 Temperature Source Tympanic 10/11/18 11:40 Pulse 90 10/11/18 11:40 Pulse Rhythm Regular 10/10/18 21:07 Pulse 89 10/07/18 09:31 Respiratory Rate 18 10/11/18 11:40 Respiratory Effort Non-Labored 10/10/18 21:07 Respiratory Depth Normal 10/10/18 21:07 Respiratory Pattern Normal 10/10/18 21:07 Blood Pressure 132/71 10/11/18 11:40 Blood Pressure Mean 93 10/07/18 09:31 Blood Pressure Position Supine 10/07/18 06:06 Pulse Oximetry 93 L 10/11/18 11:40 Oxygen Delivery Method Nasal Cannula 10/11/18 11:40 Oxygen Flow Rate 2 10/11/18 11:40 Pain Level 8 10/11/18 07:20 Comment 10/07/18 10:27 Intake & Output 10/10/18 10/11/18 10/11/18 23:59 11:59 23:59 Intake Total 250 / 570 370 / 860 490 / 860 Output Total 650 / 1150 200 / 200 Balance -400 / -580 170 / 660 490 / 660 Intake: IV 70 / 70 Oral 250 / 500 300 / 790 490 / 790 Output: Urine 650 / 1150 200 / 200 Other: Urine Color Straw Pale Yellow Urine Appearance Clear Urine Odor None None Stool Size Moderate Stool Characteristics Formed Voiding Methods Toilet Laboratory Results WBC 9.92 k/cumm (4.4-10.8) 10/11/18 06:25 RBC 4.28 m/cumm (4.50-6.00) L 10/11/18 06:25 Hgb 12.8 g/dL (13.5-17.5) L 10/11/18 06:25 Hct 39.7 % (40.0-50.0) L 10/11/18 06:25 MCV 92.8 fL (80-95) 10/11/18 06:25 MCH 29.9 pg (27.0-33.0) 10/11/18 06:25 MCHC 32.2 g/dL (32.0-36.0) 10/11/18 06:25 RDW 13.7 % (11.8-14.1) 10/11/18 06:25 Plt Count 225 x1000/uL (130-400) 10/11/18 06:25 MPV 10.1 fL (8.0-11.0) 10/11/18 06:25 Immature Gran % 0.4 10/11/18 06:25 Neutrophils % 87.8 10/11/18 06:25 Lymphocytes % 7.1 10/11/18 06:25 Monocytes % 4.6 10/11/18 06:25 Eosinophils % 0.0 10/11/18 06:25 Basophils % 0.1 10/11/18 06:25 Absolute Neutrophils 8.71 k/cumm (1.2-6.7) H 10/11/18 06:25 Absolute Lymphocytes 0.70 k/cumm (1.2-3.4) L 10/11/18 06:25 Absolute Monocytes 0.46 k/cumm (0.11-0.7) 10/11/18 06:25 Absolute Eosinophils 0.00 k/cumm (0.0-0.7) 10/11/18 06:25 Absolute Basophils 0.01 k/cumm (0.0-0.2) 10/11/18 06:25 Sodium 137 mmol/L (136-145) 10/11/18 06:25 Potassium 4.1 mmol/L (3.5-5.1) 10/11/18 06:25 Chloride 98 mmol/L (98-107) 10/11/18 06:25 Carbon Dioxide 31.5 mmol/L (21.0-32.0) 10/11/18 06:25 Anion Gap 7.5 mmol/L (3-11) 10/11/18 06:25 BUN 13 mg/dL (7-18) 10/11/18 06:25 Creatinine 0.73 mg/dL (0.70-1.30) 10/11/18 06:25 Estimated GFR/1.73 m2 >= 60.00 (mL/min/1.73m2) 10/11/18 06:25 Glucose 117 mg/dL (70-100) H 10/11/18 06:25 Lactate 1.3 mmol/l (0.6-1.4) 10/07/18 06:20 Calcium 8.8 mg/dL (8.5-10.1) 10/11/18 06:25 Magnesium 2.0 mg/dL (1.8-2.4) 10/11/18 06:25 Total Bilirubin 0.5 mg/dL (0.2-1.0) 10/07/18 06:20 AST 25 U/L (15-37) 10/07/18 06:20 ALT 14 U/L (12-78) 10/07/18 06:20 Alkaline Phosphatase 92 U/L (46-116) 10/07/18 06:20 Troponin I < 0.02 ng/mL (0.00-0.06) 10/07/18 06:20 NT-Pro-B Natriuret Pep 379 pg/mL (-299) H 10/09/18 13:20 Total Protein 8.5 g/dL (6.4-8.2) H 10/07/18 06:20 Albumin 3.0 g/dL (3.4-5.0) L 10/07/18 06:20 Urine Color Dark yellow (Yellow) 10/07/18 09:49 Urine Clarity Clear 10/07/18 09:49 Urine pH 6.0 (5-8) 10/07/18 09:49 Ur Specific [place] >= 1.030 (1.005-1.025) H 10/07/18 09:49 Urine Protein Negative mg/dL (Negative) 10/07/18 09:49 Urine Ketones 80 mg/dL (Negative) H 10/07/18 09:49 Urine Blood Negative (Negative) 10/07/18 09:49 Urine Nitrite Negative (Negative) 10/07/18 09:49 Urine Bilirubin Small (Negative) H 10/07/18 09:49 Urine Urobilinogen 4.0 EU/dL (Up TO 0.2) H 10/07/18 09:49 Ur Leukocyte Esterase Negative (Negative) 10/07/18 09:49 Urine Glucose Negative mg/dL (Negative) 10/07/18 09:49
--- NOTE | 2018-10-11 15:16 | CHAPLAIN ---
Eladio was pleasant and talkative when I visited yesterday. He identified his daughter as a support. Using oxygen is new for him, but Eladio said he had been up walking in the halls and was feeling good about that.
--- NOTE | 2018-10-11 15:34 | PT.INNT ---
Date of service: 10/11/18 Time of Service: 15:34 PT Notes 10/11/18 Patient refused afternoon PT session, stating I just want to sleep. We will attempt to resume PT services tomorrow morning.
[2018-10-11] MEDS: predniSONE 20 MG TAB 40 MG PO (19:20)
[2018-10-11] MEDS: Acetaminophen 325 MG TAB PO (22:15)
[2018-10-12] VITALS (7 sets, daily range): BP systolic 125–150; BP diastolic 81–93; PULSE 73–113; RESP 18–24; TEMP 36.3–36.5; O2SAT 92–94
[2018-10-12 07:10] LABS: Abs Immature Grans 0.06 k/cumm (0.0-0.09); Absolute Basophil Count 0.01 k/cumm (0.0-0.2); Absolute Lymphocyte Count 1.14 k/cumm (1.2-3.4); Absolute Monocyte Count 0.68 k/cumm (0.11-0.7); Basophils % 0.1; HCT 41.7 % (40.0-50.0); HGB 13.5 g/dL (13.5-17.5); Immature Grans % 0.7; Lymphocytes % 13.1; Mean Corp. HGB Concentration 32.4 g/dL (32.0-36.0); Mean Corpuscular Hemoglobin 29.5 pg (27.0-33.0); Mean Corpuscular Volume 91.2 fL (80-95); Mean Platelet Volume 10.5 fL (8.0-11.0); Monocytes % 7.8; Neutrophils % 78.3; Platelet Count 259 x1000/uL (130-400); RBC 4.57 m/cumm (4.50-6.00); RBC Distribution Width 13.7 % (11.8-14.1); White Blood Cell Count 8.69 k/cumm (4.4-10.8)
[2018-10-12 07:26] LABS: Anion Gap 8.5 mmol/L (3-11); BUN 17 mg/dL (7-18); CO2 29.5 mmol/L (21.0-32.0); Chloride 97 mmol/L (98-107); Glucose 101 mg/dL (70-100); Magnesium 2.1 mg/dL (1.8-2.4); Potassium 4.1 mmol/L (3.5-5.1); Sodium 135 mmol/L (136-145)
[2018-10-12] MEDS: Methadone Liquid 10 MG/ML 95 MG PO (07:36)
[2018-10-12] MEDS: guaiFENesin 600 MG TABCR PO (07:36)
[2018-10-12] MEDS: Cyclobenzaprine 10 MG TAB PO ×2 (07:36→14:37)
[2018-10-12] MEDS: predniSONE 20 MG TAB 40 MG PO (07:36)
[2018-10-12] MEDS: Cetirizine 10 MG TAB PO (07:36)
[2018-10-12] MEDS: Pantoprazole 40 MG TABCR PO (07:36)
[2018-10-12] MEDS: Doxycycline Hyclate 100 MG CAP PO (07:36)
[2018-10-12] MEDS: Nystatin POWDER 60 GM JAR TP (07:37)
[2018-10-12] MEDS: Mometasone 220 MCG 14 DOSE INHALER 1 PUFF IH (09:15)
--- NOTE | 2018-10-12 11:36 | PT.INTREAT ---
Date of service: 10/12/18 Time of Service: 11:36 PT Notes Inpatient Physical Therapy Treatment Note [facility] Date: 10/12/18 PRECAUTIONS: Fall, monitor SaO2 SUBJECTIVE: Eladio states that he did not sleep well last night. OBJECTIVE: PAIN:Patient c/o R knee pain with gait training and ther ex BED MOBILITY/TRANSFERS Sit-stand: I Stand-sit: I Chair-bed: I GAIT Assistive Device: No AD Weight bearing: Full Assist: S Distance: 100' x2 Deviation: Seated rest x1 THEREX: Patient completed a LE strengthening program, as per flow sheet. He also performed functional [id number] exercise. VITALS: SaO2: 91-93% on RA with gait training ASSESSMENT: Patient tolerated session well with some complaint of R knee pain with gait training. Patient would benefit from continued gait training and strengthening for improved mobility and activity tolerance. PLAN: Continue with PT's POC TREATMENT CODE/TIME: Session 1: 25 minutes; [id number], [id number]
--- NOTE | 2018-10-12 11:41 | PTTR_ITS ---
Date of service: 10/12/18 Time of Service: 11:36 PT Notes Inpatient Physical Therapy Treatment Note [facility] Date: 10/12/18 PRECAUTIONS: Fall, monitor SaO2 SUBJECTIVE: Eladio states that he did not sleep well last night. OBJECTIVE: PAIN:Patient c/o R knee pain with gait training and ther ex BED MOBILITY/TRANSFERS Sit-stand: I Stand-sit: I Chair-bed: I GAIT Assistive Device: No AD Weight bearing: Full Assist: S Distance: 100' x2 Deviation: Seated rest x1 THEREX: Patient completed a LE strengthening program, as per flow sheet. He also performed functional [id number] exercise. VITALS: SaO2: 91-93% on RA with gait training ASSESSMENT: Patient tolerated session well with some complaint of R knee pain with gait training. Patient would benefit from continued gait training and strengthening for improved mobility and activity tolerance. PLAN: Continue with PT's POC TREATMENT CODE/TIME: Session 1: 25 minutes; [id number], [id number]
[2018-10-12] MEDS: Normal Saline Flush 10 ML SYR IVP (12:34)
[2018-10-12] MEDS: Furosemide 20 MG/2 ML VIAL IVP (12:34)
--- NOTE | 2018-10-12 12:39 | W.PM.DS.N ---
Date of service: 10/12/18 Time of Service: 12:44 DS: Diagnosis Discharge Diagnosis (1) CAP (community acquired pneumonia): Status: Acute (2) COPD with acute exacerbation: Status: Acute (3) GERD (gastroesophageal reflux disease): Status: Chronic (4) Tobacco abuse: Status: Acute (5) Edema leg: Status: Acute (6) Range of motion deficit: Status: Acute Discharge Plan Disposition Patient Disposition: HOME Condition: Stable Discharge Details Reason For Visit: R LOWER LOBE PNEUMONIA Admit Date/Time: 10/07/18 10:42 Admit Provider: Ti Delgado Attending Provider: Ti Delgado Primary Care Provider: JennyRichelle [facility] Hospital Course: Mr. Tripathi is a 68 year old man with a past medical history significant for COPD, GERD, chronic pain on methadone, who presented to the ED on 10/07/18 with reports of cough and shortness of breath. He was noted to have oxygen saturations in the 80s on room air, he was not febrile. He went on to have a chest x-ray which was notable for Question of a right lower lobe infiltrate versus atelectasis. She had a CT chest/abdomen/pelvis which showed a right lower lobe infiltrate, no evidence of pulmonary emboli or aortic dissection. No acute abdominal abnormality. He was admitted to the med/surg floor for treatment of pneumonia with COPD exacerbation. He was treated with Doxycycline and Ceftriaxone, nebulizer treatments, steroids and supplemental oxygen. His condition improved over the following days. He was noted to have edema of bilateral lower extremities. He went on to have an Echocardiogram which showed diastolic dysfunction, his LVEF was 60-65%. He did receive IV lasix bolus x2 due to edema, shortness of breath with exertion, cough productive of white frothy sputum and rales on exam with no fever or leukocytosis. He diuresed well and his symptoms improved. At the time of discharge, his lower extremity edema has resolved. His respiratory status has improved. His weight is down. He completed an exercise oximetry test and does not qualify for home oxygen. He completed a course of antibiotics. He will be discharged home and taper off of prednisone. He will follow up with his PCP. He may need ongoing diuretic therapy. Home Meds and New Rx's Prescriptions: New nystatin 100,000 unit/gram Powder topical BID Qty: 0 RF: 0 prednisone 10 mg tablet 10 mg PO DAILY Qty: 16 RF: 0 Continued cyclobenzaprine 10 MG tablet 10 mg PO TID RF: 0 esomeprazole magnesium [Nexium] 20 MG capsule,delayed release(DR/EC) 20 mg PO DAILY RF: 0 methadone 10 mg/5 mL Solution 95 mg PO DAILY RF: 0 gabapentin 300 mg Capsule 300 mg PO TID PRNRF: 0 Flovent HFA 220 mcg/actuation Hfa Aerosol Inhaler 2 puff INHALATION BID RF: 0 albuterol sulfate [ProAir HFA] 90 mcg/actuation Hfa Aerosol Inhaler 2 puff INHALATION Q6H PRNRF: 0 Discharge Instructions Instructions: COPD (Chronic Obstructive Pulmonary Disease) (DC), Community Acquired Pneumonia (DC) Additional Instructions: Taper prednisone: take 4 tablets (40mg) tomorrow morning, then decrease to 3 tablets x2 days, then take 2 tablets x2 days, then decrease to 1 tablet x2 days then stop. You have completed antibiotics. Follow up with your PCP as scheduled. Activity:: Activity as Tolerated Equipment/Supplies:: No Equipment Needed Diet:: Heart healthy Discharge Orders Discharge Orders: Discharge Order (Routine); Ordered 10/12/18 Ordered By: Jenelle Brown Exam Narrative Exam Narrative: General: elderly man sitting on the edge of the bed, in NAD, alert and oriented, pleasant and cooperative. HEENT: normocephalic, atraumatic, pupils equal and round, mucous membranes moist. Neck: supple, no JVD. Respiratory: respirations even and unlabored, lung sounds with rales to right base. No wheezing. Cardiovascular: heart with regular rate and rhythm, no murmur appreciated. GI: normoactive bowel sounds x4 quadrants, soft, nontender on palpation. Extremities: no edema to bilateral lower extremities. Pedal pulses palpable bilaterally. TEDs on BLEs. DS: Data Vitals/I&O Vitals and I&O: Vital Signs Temperature 36.3 C L 10/12/18 10:50 Temperature Source Skin 10/12/18 10:50 Pulse 91 H 10/12/18 10:50 Pulse Rhythm Regular 10/12/18 07:42 Pulse 89 10/07/18 09:31 Respiratory Rate 18 10/12/18 10:50 Respiratory Effort 10/12/18 07:42 Respiratory Depth Normal 10/12/18 07:42 Respiratory Pattern Normal 10/12/18 07:42 Blood Pressure 132/88 10/12/18 10:50 Blood Pressure Mean 93 10/07/18 09:31 Blood Pressure Position Supine 10/07/18 06:06 Pulse Oximetry 92 L 10/12/18 10:50 Oxygen Delivery Method Room Air 10/12/18 10:50 Oxygen Flow Rate 0 10/12/18 10:50 Pain Level 6 10/12/18 10:50 Comment 10/12/18 07:52 Intake & Output 10/11/18 10/12/18 10/12/18 23:59 11:59 23:59 Intake Total 1460 / 1830 200 / 200 Output Total 700 / 900 925 / 925 Balance 760 / 930 -725 / -725 Weight 70.6 kg Intake: IV 10 Oral 1450 / 1750 200 / 200 Output: Urine 700 / 900 925 / 925 Other: Urine Color Yellow Yellow Urine Appearance Cloudy Clear Urine Odor Normal Comment pt voiding independently in the toilet Voiding Methods Toilet Urinal Completed studies during hospitalization [Text1]: 10/07/18: PA AND LATERAL CHEST: Comparison is made with 07/06/17. The lungs are not well inflated on either view. The heart size appears normal. The aorta is tortuous, unchanged. The lungs are not well inflated on either view. There is question of increased densities at the right lower lobe which could represent pneumonia versus atelectasis. There are mild underlying fibrotic changes. A left shoulder prosthesis is seen. There are severe degenerative changes of the right shoulder as well as degenerative changes in the thoracic spine. IMPRESSION: Question of a right lower lobe infiltrate versus atelectasis. PE CHEST CT: CT angiography was performed with multi slice acquisition and multi planar and 3D reconstruction. The exam is limited by patient motion. The aorta and pulmonary arteries are well opacified with IV contrast. There is significant motion at the level of the aortic root and proximal pulmonary artery. No pulmonary emboli or aortic dissection is seen. The heart size is normal. No pleural or pericardial effusions are seen. Evaluation of the lungs is difficult due to degree of respiratory motion. The lungs are not well inflated. There is elevation of the left diaphragm. Air space opacities are seen in the right lower lobe suspicious for pneumonia. There is mild apical scarring, greater on the right side. There is bilateral gynecomastia. Degenerative changes are seen in the spine. There is a left shoulder prosthesis. There are severe degenerative changes of the right shoulder as well as evidence of chronic rotator cuff tear. IMPRESSION: Limited exam due to respiratory motion and poor pulmonary infiltration. A right lower lobe infiltrate is seen. There is no evidence of pulmonary emboli or aortic dissection. ABDOMEN AND PELVIC CT: Images were performed from the lung bases through the ischial tuberosities after IV and oral contrast. The exam is quite limited by patient motion. The oral contrast extends to the hepatic flexure. There is a moderate to increased quantity of stool. There is no bowel wall thickening or inflammatory change. There is no abnormal bowel dilatation. The liver, gallbladder, spleen, pancreas, kidneys and adrenals are unremarkable. The bladder and prostate appear intact. There is no free air or free fluid. There are severe degenerative changes as well as post surgical changes in the lumbar spine. IMPRESSION: Limited exam due to patient motion. No acute abnormality is identified. 10/09/18: PA AND LATERAL CHEST: Comparison is made with 07/06/17 and 10/07/18. The heart size and pulmonary vasculature are within normal limits. There are increased lung markings in the right lower lobe and right upper lobe which appear stable. This may represent acute pneumonia or atelectasis. The left lung remains clear. No effusions or pneumothoraces are identified. There are again seen dilated loops of bowel beneath the left hemidiaphragm which is mildly elevated. Post surgical changes of a total reversed shoulder replacement are again noted. IMPRESSION: No significant change in appearance of the chest xray since 10/07/18. Persistent right pulmonary infiltrates. 10/10/18: Transthoracic Echocardiography M-mode, complete 2D, complete spectral Doppler, and color Doppler *STUDY CONCLUSIONS* Summary: 1. Left ventricle: The cavity size was normal. Systolic function was normal. The estimated ejection fraction was 60-65%. Findings consistent with diastolic dysfunction. There was no evidence of elevated ventricular filling pressure by Doppler parameters. 2. Aortic valve: There was mild stenosis. Peak velocity (S): 2m/sec. Mean gradient (S): 9.4mm Hg. VTI ratio of LVOT to aortic valve: 0.42. Valve area (VTI): 1.3cm^2. 3. Mitral valve: There was mild regurgitation. 4. Left atrium: The atrium was mildly dilated. 5. Atrial septum: No defect or patent foramen ovale was identified. 6. Pulmonary arteries: Pulmonary systolic pressure was in the range of 35mm Hg to 45mm Hg. 7. Inferior vena cava: The vessel was patent and normal in size. The respirophasic diameter changes were in the normal range (greater than or equal to 50%), consistent with normal central venous pressure. Labs on day of discharge: Labs from last 24 hours 10/12/18 10/12/18 06:22 06:22 WBC 8.69 RBC 4.57 Hgb 13.5 Hct 41.7 MCV 91.2 MCH 29.5 MCHC 32.4 RDW 13.7 Plt Count 259 MPV 10.5 Immature Gran % 0.7 Neutrophils % 78.3 Lymphocytes % 13.1 Monocytes % 7.8 Eosinophils % 0.0 Basophils % 0.1 Absolute Neutrophils 6.80 H Absolute Lymphocytes 1.14 L Absolute Monocytes 0.68 Absolute Eosinophils 0.00 Absolute Basophils 0.01 Sodium 135 L Potassium 4.1 Chloride 97 L Carbon Dioxide 29.5 Anion Gap 8.5 BUN 17 Creatinine 0.80 Estimated GFR/1.73 m2 >= 60.00 Glucose 101 H Calcium 9.0 Magnesium 2.1 PFSH Medical History Anxiety (Chronic) Back pain (Chronic) COPD (chronic obstructive pulmonary disease) (Chronic) Depression (Chronic) GERD (gastroesophageal reflux disease) (Chronic) Insomnia (Chronic) Macrocytosis (Chronic) Numbness and tingling in right hand (Chronic) Right knee DJD (Chronic) Tobacco abuse (Chronic) Surgical History History of right knee surgery (Inactive) History of shoulder surgery (Inactive) Hx of tonsillectomy (Inactive) Previous back surgery (Inactive) Social History Smoking/Tobacco Use Status: Current every day Tobacco Type: cigarettes Smoking cigarettes per day: 4 Years smoked: 40 Alcohol Intake: never Drug use: Daily Substance use type: marijuana Do you feel safe at home: Yes Do you feel safe in your relationship?: Yes
--- NOTE | 2018-10-12 13:58 | PDOC.CMDIS ---
- If Service Date Differs Date of service: 10/12/18 Time of Service: 13:58 LACE Index Scoring Tool - Questions: Length of Stay (in days): 4 - 6 Acuity (Admit via E.D.?): Yes Comorbidities: Chronic Pulmonary Disease E.D. Visits: 1 - Answers: Total Score: 10 Risk of Readmission: High Risk Care Management Discharge Reason for Hospitalization: RLL Pneumonia Discharge Plan: Eladio will return home today with no services. CM contacted his daughter Zoya and requested transportation. She states that she can transport at 1430. Zoya has requested that nursing wait to go over the DC instructions until she arrives and CM notified [facility], of request Patient/Family Education Needs: Review DC instructions, any limitations, and discuss 'Ask Me Three'
--- NOTE | 2018-10-13 08:14 | OT.INDS ---
Date of service: 10/13/18 Time of Service: 08:14 Occupational Therapy Notes Occupational Therapy Inpatient Discharge Summary Dates of Service: 10/10/18-10/13/18 Date: 10/13/18 for 10/12/18 Referring Doctor:Milly Centeno NP OT Orders: decreased ROM to (B) shoulders and deconditioning in setting of chronic illness. Precautions: Fall, Standard PATIENT PROFILE/ADMITTING DIAGNOSIS: Pt is a 68 year old male who was admitted through the ER on 10/07/18 for (R) lower lobe pneumonia. Past Medical History: Anxiety (Chronic),Back pain (Chronic),COPD (chronic obstructive pulmonary disease) (Chronic),Depression (Chronic),GERD (gastroesophageal reflux disease) (Chronic),Insomnia (Chronic),Macrocytosis (Chronic),Numbness and tingling in right hand (Chronic),Right knee DJD (Chronic) Tobacco abuse (Chronic)History of right knee surgery,History of shoulder surgery,Hx of tonsillectomy Social History/Home Situation: Pt lives with his daughter, her and two children in a private home. He reported that through the garage there are 3 steps to enter. His bedroom resides on the 2nd floor. His baseline for ADLs/IADLs is that he is (I) with dressing, toileting and bathing. However pt reports that he baths standing in the shower and gets dizzy at times. OT does recommend that pt get a shower chair or bench for the shower to increase his safety. Pt brushes his teeth standing at the sink and performs stairs one step at a time. Pt does not drive he utilizes [employer] as he states he gave his license up a couple years ago due to not being able to afford a car or the insurance for it. Equipment owned/DME: walker and cane and he uses them as needed. THIS DOCUMENT SERVES A SUMMARY OF CARE, NO SKILLED OT SERVICES PROVIDED TO COMPLETE THIS DOCUMENTATION SUBJECTIVE: NT OBJECTIVE: ROM: RUE Shoulder flexion limited to 40* AROM d/t old rotator cuff issue from high school, elbow WNL, hand WNL L UE Shoulder flexion limited to 40* AROM d/t old rotator cuff issue from falling down stairs in 2013, elbow WNL, hand WNL STRENGTH: RUE Shoulder flexion 3/5, bicep 3+/5, tricep 3+/5, carry in worker was strong LUE Shoulder flexion 3/5, bicep 3+/5, tricep 3+/5, carry in worker was strong but less than (R) FUNCTIONAL MOBILITY/ADLS: Sit-Stand SBA, FWW Stand-sit SBA, FWW BALANCE: Static sitting Normal Dynamic Sitting Normal Static Standing Good ASSESSMENT: Patient is a 68-year-old male referred to occupational therapy services with diagnosis of decreased ROM to (B) shoulder and deconditioning in setting of chronic illness with admission to [facility] for (R) lower lobe pneumonia. Pt was seen for OT evaluation only. Goals were unable to be obtained due to this and pt was discharged home on 10/12/18 when medically cleared per MD. GOALS- GOALs unable to be obtained, pt was seen for OT eval only 1. Transfers (I), FWW 2. Dressing Sitting in chair pt will be able to (I) don and doff (B) socks, put on pants, and dress UE (I) 3. Bathing Standing at sink with FWW, pt will be able to (I) wash UE and in sitting wash LE 4. Toileting (I) on toilet 5. Eating (I) 6. Grooming standing at sink (I) with brushing teeth PLAN OF CARE/TREATMENT PLAN: Pt was discharged on 10/12/18 to home DISCHARGE RECOMMENDATIONS OT recommends that pt return home when medically cleared per MD with home health services. OT recommends that pt get a shower chair or bench to decrease fall risk and increase pts safety during bathing routine. TREATMENT TIME/MINUTES/CODES N/A Estephanie Osman OTR/L [facility]
--- NOTE | 2018-10-13 08:18 | OTDS_ITS ---
Date of service: 10/13/18 Time of Service: 08:14 Occupational Therapy Notes Occupational Therapy Inpatient Discharge Summary Dates of Service: 10/10/18-10/13/18 Date: 10/13/18 for 10/12/18 Referring Doctor:Milly Centeno NP OT Orders: decreased ROM to (B) shoulders and deconditioning in setting of chronic illness. Precautions: Fall, Standard PATIENT PROFILE/ADMITTING DIAGNOSIS: Pt is a 68 year old male who was admitted through the ER on 10/07/18 for (R) lower lobe pneumonia. Past Medical History: Anxiety (Chronic),Back pain (Chronic),COPD (chronic obstructive pulmonary disease) (Chronic),Depression (Chronic),GERD (gastroesophageal reflux disease) (Chronic),Insomnia (Chronic),Macrocytosis (Chronic),Numbness and tingling in right hand (Chronic),Right knee DJD (Chronic) Tobacco abuse (Chronic)History of right knee surgery,History of shoulder surgery,Hx of tonsillectomy Social History/Home Situation: Pt lives with his daughter, her and two children in a private home. He reported that through the garage there are 3 steps to enter. His bedroom resides on the 2nd floor. His baseline for ADLs/IADLs is that he is (I) with dressing, toileting and bathing. However pt reports that he baths standing in the shower and gets dizzy at times. OT does recommend that pt get a shower chair or bench for the shower to increase his safety. Pt brushes his teeth standing at the sink and performs stairs one step at a time. Pt does not drive he utilizes [employer] as he states he gave his license up a couple years ago due to not being able to afford a car or the insurance for it. Equipment owned/DME: walker and cane and he uses them as needed. THIS DOCUMENT SERVES A SUMMARY OF CARE, NO SKILLED OT SERVICES PROVIDED TO COMPLETE THIS DOCUMENTATION SUBJECTIVE: NT OBJECTIVE: ROM: RUE Shoulder flexion limited to 40* AROM d/t old rotator cuff issue from high school, elbow WNL, hand WNL L UE Shoulder flexion limited to 40* AROM d/t old rotator cuff issue from falling down stairs in 2013, elbow WNL, hand WNL STRENGTH: RUE Shoulder flexion 3/5, bicep 3+/5, tricep 3+/5, bin packer was strong LUE Shoulder flexion 3/5, bicep 3+/5, tricep 3+/5, bin packer was strong but less than (R) FUNCTIONAL MOBILITY/ADLS: Sit-Stand SBA, FWW Stand-sit SBA, FWW BALANCE: Static sitting Normal Dynamic Sitting Normal Static Standing Good ASSESSMENT: Patient is a 68-year-old male referred to occupational therapy services with diagnosis of decreased ROM to (B) shoulder and deconditioning in setting of chronic illness with admission to [facility] for (R) lower lobe pneumonia. Pt was seen for OT evaluation only. Goals were unable to be obtained due to this and pt was discharged home on 10/12/18 when medically cleared per MD. GOALS- GOALs unable to be obtained, pt was seen for OT eval only 1. Transfers (I), FWW 2. Dressing Sitting in chair pt will be able to (I) don and doff (B) socks, put on pants, and dress UE (I) 3. Bathing Standing at sink with FWW, pt will be able to (I) wash UE and in sitting wash LE 4. Toileting (I) on toilet 5. Eating (I) 6. Grooming standing at sink (I) with brushing teeth PLAN OF CARE/TREATMENT PLAN: Pt was discharged on 10/12/18 to home DISCHARGE RECOMMENDATIONS OT recommends that pt return home when medically cleared per MD with home health services. OT recommends that pt get a shower chair or bench to decrease fall risk and increase pts safety during bathing routine. TREATMENT TIME/MINUTES/CODES N/A Estephanie Osman OTR/L [facility]
--- NOTE | 2018-10-13 11:18 | INDS_ITS ---
Date of service: 10/12/18 PT Notes Inpatient Physical Therapy Discharge Summary Dates: 10/12/2018 Dates of Service: 10/09/18 through 10/12/18 Referring Doctor: Milly Centeno NP PT Orders: PT CONSULT: Decreased ROM to bilateral shoulders and do conditioning in a chronic illness Precautions: Fall. Standard. Patient Profile/Admitting Diagnosis: Patient is a 68-year-old male who went to the ER on 10/07/2018 with chief complaints of cough, SOB, and body malaise. CT scan of the lungs revealed a right lower lobe pneumonia and with diagnosis made for community-acquired pneumonia and COPD exacerbation. Patient also presents with limitation of motion for bilateral shoulders due to previous childhood trauma to the right shoulder and a fall at her daughter's house in [facility] with him landing on his left shoulder. Patient states that he has had previous extensive physical therapy to bilateral shoulders but full range of motion has not been achieved. Patient reports that his been part of [facility] program in [place], [place] where he is a recipient of methadone treatment for the past 6 months now. PMHX: Medical History Anxiety (Chronic) Back pain (Chronic) COPD (chronic obstructive pulmonary disease) (Chronic) Depression (Chronic) GERD (gastroesophageal reflux disease) (Chronic) Insomnia (Chronic) Macrocytosis (Chronic) Numbness and tingling in right hand (Chronic) Right knee DJD (Chronic) Tobacco abuse (Chronic) Surgical History History of right knee surgery (Inactive) History of shoulder surgery (Inactive) Hx of tonsillectomy (Inactive) Previous back surgery (Inactive) Social History/Home Situation: Patient lives with his son's ex-'s house in [facility] where he plans to go home to upon discharge from this hospital. He states that it is a single floor ranch-style home with 3 steps to enter rail on the right side going up. He states that he has stopped using a cane because it has made his hands and fingers numb although today with the use of the walker he does not report any sensory changes in both hands and fingers. Patient states he smokes 2-3 cigarettes/day and has stopped drinking for the past 20 years. He is able to make his own meals and has been ambulatory without any assistive device at home he states he has 15 feet to walk to the bathroom and 30 feet from the inside of the house to get into the car door outside. Furthermore, he states that he was doing some grocery shopping and managing well with it as long as somebody drives him Equipment Owned/DME: Has a walker and cane. He also has a wheelchair. He states though that he does not make use of any of them. This is a summary of of care provided by PT staff on the duration of dates indicated above. No charge for documentation of this discharge summary was done. Subjective: NT Objective: General Observation: NT Mental Status: Alert and oriented x3 Pain: Denies. 0/10. ROM: Right Upper Extremity: Shoulder flexion 30 degrees. Shoulder abduction 30 degrees. Left Upper Extremity: Shoulder flexion 30 degrees. Shoulder abduction 30 degrees. Right Lower Extremity: WFL Left Lower Extremity: WFL Strength: Right Upper Extremity: Shoulder flexors 3-/5. Shoulder abductors 3-/5. Elbow flexors 3+/5. Elbow extensors 3+/5. Turning Machine Set Up Operator weak but functional. Left Upper Extremity: Shoulder flexors 3-/5. Shoulder abductors 3-/5. Elbow flexors 3+/5. Elbow extensors 3+/5. Turning Machine Set Up Operator weak but functional. Right Lower Extremity: Hip flexors 4/5. Knee extensors 3+/5. Knee flexors 4- /5. Ankle dorsiflexors/plantar flexors 4+/5 Left Lower Extremity: Hip flexors 4/5. Knee extensors 3+/5. Knee flexors 4-/5. Ankle dorsiflexors/plantar flexors 4+/5 Sensation: Intact as to pain and pressure to distal B LE Bed Mobility/Transfers: Rolling independent Supine to sit independent Sit to supine independent Sit to stand independent Stand to sit independent Bed to chair independent Chair to bed independent Gait: Per PT documentation as of 10/12/18 in the morning, patient was able to tolerate 100 feet of level surface ambulation x2 with no assistive device full weightbearing on bilateral lower extremities requiring only supervision with a one seated rest with oxygen saturation staying within 91-93% in room air. Balance: Static Sitting: Normal Dynamic Sitting: Normal Static Standing: Fair Dynamic Standing: Fair Special Tests: Mobility Limitations Standardized Measure [facility]-P[facility] 6 clicks Basic Mobility Inpatient Short Form: Raw Score: 22 CMS Score: 21% deficit Assessment: Patient is a 68-year-old male referred to physical therapy services with the diagnosis of community-acquired pneumonia and COPD exacerbation. Patient presents with clinical signs and symptoms consistent with current/admitting diagnoses that has resulted to mobility limitations, gait instability, generalized weakness, and lack of motor control as demonstrated by the following impairment level findings: 1. Decreased strength to B LE and B shoulder major muscle groups 2. Impaired balance 3. Impaired activity tolerance 4. Mentation and joint range of motion to bilateral shoulders Impairments are contributing to the following functional limitations: 1. Increased dependence with transfers 2. Inability to safely ambulate without assistive device and physical assistance 3. Increase completion time for mobility ADL performance 4. Increased fall risk 5. Inability to negotiate steps alone safely Goals: Goals X1 week 1. Supine-Sit independent MET 2. Sit-Supine independent MET 3. Sit-Stand independent MET 4. Stand-Sit independent MET 5. Bed-Chair independent MET 6. Chair-Bed independent MET 7. Gait on level surface ambulation with no AD for at least 300 feet without report of pain nor dyspnea NOT MET 8. Stairs independent while holding onto bilateral rails for at least 5 steps without report of pain nor dyspnea NOT MET 9. Independent with home exercise program MET 10. Balance good for static and dynamic standing MET DISCHARGE RECOMMENDATIONS: Patient will benefit from short-term home health physical therapy services in order to facilitate a smooth transition to home, evaluate home safety, reduce fall risk, and education/training for home health exercise program/functional maintenance program. TREATMENT CODE/TIME: NT Thank you for this referral. Britt Rabago, PT, DPT, CLT [facility]
--- NOTE | 2018-10-13 14:08 | W.PM.HP.N ---
Date of service: 10/07/18 Time of Service: 16:09 Assessment and Plan (1) CAP (community acquired pneumonia): Current visit: No Status: Acute Likely community acquired pneumonia without other risk factors. Will treat with ceftriaxone and doxycycline. Oxygen support to maintain sats above 92%. Updrafts and corticosteroids. (2) COPD with acute exacerbation: Current visit: No Status: Acute Long-term smoker. He does not appear he is formally diagnosed with COPD but this likely represents an exacerbation of COPD caused by underlying community-acquired pneumonia. Continue corticosteroids and updrafts with oxygen support. He appears otherwise well compensated at this time. (3) Tobacco abuse: Current visit: No Status: Acute Ongoing tobacco use disorder. Will provide nicotine replacement. He is trying to quit in order to get a right knee replacement. He is down to 4 cigarettes/day. (4) Chronic pain: Current visit: No Status: Chronic Post lumbar laminectomy syndrome, he is on chronic methadone therapy through the [facility] program here in [facility]. He gets 95 mg daily. He got his dose this morning. We will continue on methadone 95 mg p.o. every morning. (5) Discharge planning issues: Current visit: No Status: Acute He is a full code. Admit to [facility] and monitor in acute care status. History of Present Illness Chief Complaint: Pneumonia Narrative: This is a 68-year-old man who is been troubled with cough productive of yellow sputum for 2 days. He notes he got a flu shot 3 days ago and has been sick ever since. In the emergency room the initial chest x-ray showed no evidence of an infiltrate. He had a CT angiogram of the chest, abdomen and pelvis that showed evidence of a right lower lobe pneumonia, no evidence of pulmonary embolism. He had a mildly elevated white blood cell count, lactate of 1.3, sodium 131. He was empirically started on ceftriaxone. Azithromycin was withheld because he is on methadone. We elected to add doxycycline to his regimen. Review of Systems Review of Systems Patient's main complaint was cough and shortness of breath. Constitutional Denies excessive sweating, Denies frequent falls, Denies headache(s) and Denies night sweats Eyes Denies change in vision ENT Denies dizziness, Denies headache(s) and Denies throat swelling Cardiovascular Denies chest pain, Denies edema, Reports dyspnea, Reports dyspnea on exertion and Denies orthopnea Respiratory Reports change in phlegm color, Reports cough, Denies hemoptysis, Reports excessive phlegm production, Denies pain on inspiration, Reports dyspnea and Reports dyspnea on exertion Gastrointestinal Denies change in bowel habits, Denies diarrhea, Denies nausea and Denies vomiting Genitourinary Denies urinary frequency and Denies urinary incontinence Musculoskeletal Denies back pain, Denies deformity and Reports arthralgias Integumentary/Breasts Denies rash, Denies sores and Denies wounds Neurologic Denies confusion, Denies dizziness, Denies frequent falls, Denies headache(s), Denies focal weakness and Denies sensory deficit Psychiatric Denies confusion, Denies depression and Denies suicidal ideation Endocrine Denies cold intolerance and Denies excessive sweating Hematologic/Lymphatic Denies easy bleeding and Denies easy bruising Allergic/Immunologic Denies urticaria and Denies throat swelling [facility] Medical History Anxiety (Chronic) Back pain (Chronic) COPD (chronic obstructive pulmonary disease) (Chronic) Depression (Chronic) GERD (gastroesophageal reflux disease) (Chronic) Insomnia (Chronic) Macrocytosis (Chronic) Numbness and tingling in right hand (Chronic) Post laminectomy syndrome (Chronic) Right knee DJD (Chronic) Tobacco abuse (Chronic) Surgical History History of right knee surgery (Inactive) History of shoulder surgery (Inactive) Hx of tonsillectomy (Inactive) Previous back surgery (Inactive) Social History Smoking/Tobacco Use Status: Current every day Tobacco Type: cigarettes Smoking cigarettes per day: 4 Years smoked: 40 Alcohol Intake: never Drug use: Daily Substance use type: marijuana Do you feel safe at home: Yes Do you feel safe in your relationship?: Yes Additional Social history: He lives in [place], [place] but stays with someone in [facility] to maintain [place] residency so he can participate in the [employer] program. Meds Home Medications Medication Instructions Recorded Confirmed Type cyclobenzaprine 10 mg PO TID tab-cap 01/02/16 10/07/18 History esomeprazole magnesium [Nexium] 20 mg PO DAILY tab-cap 01/02/16 10/07/18 History Flovent HFA 2 puff INHALATION BID 10/07/18 10/07/18 History albuterol sulfate [ProAir HFA] 2 puff INHALATION Q6H PRN 10/07/18 10/07/18 History gabapentin 300 mg PO TID PRN 10/07/18 10/07/18 History methadone 95 mg PO DAILY 10/07/18 10/07/18 History nystatin 0 g TOPICAL BID #0 g 10/12/18 Rx prednisone 10 mg PO DAILY #16 tab 10/12/18 Rx Allergies Allergy/AdvReac Type Severity Reaction Status Date / Time ketorolac [From Toradol] Allergy makes my Unverified 10/07/18 06:32 head wack out codeine AdvReac Nausea Unverified 10/07/18 06:13 Exam Narrative Exam Narrative: Generally pleasant, interactive. He did not appear in any distress Const General: cooperative, comfortable and no acute distress Nutritional Appearance: average body habitus Orientation: alert, awake and oriented x3 HENMT Head: normal to inspection Ears: hearing grossly normal bilaterally General nose exam: external nose normal Face and sinus: face symmetric Mouth: oropharynx normal Eyes General: appearance normal, both eyes and all related structures Neck Neck: normal visual inspection Thyroid: symmetrical Carotids: normal carotid upstroke Lymphatic: no lymphadenopathy noted Chest Chest: normal inspection of the chest Resp Effort & Inspection: normal respiratory effort and no use of accessory muscles Other: He had some rales at the right base. Some and expiratory wheezing bilaterally. Otherwise somewhat quiet breath sounds. Cardio Jugular venous pressure: no JVD Rate: regular rate Rhythm: regular rhythm Heart Sounds: S1 normal, S2 normal and no murmurs GI Inspection: normal to inspection Palpation: soft, no hepatosplenomegaly and nontender Male General Exam: Yes normal external exam Back/Spine/Pelvis Back: no CVA tenderness Cervical Spine: normal cervical lordosis Thoracic/Lumbar Spine: thoracic and lumbar spine normal to inspection and surgical scar(s) present Skin General skin exam: no rashes or lesions noted Wounds: no wounds Neuro General: alert, awake, oriented x3, moves all extremities and no focal motor deficits Cranial Nerves: CN's II-XI intact bilaterally Cognition: normal cognition Speech: speech normal Extrem General: normal to inspection and no clubbing, cyanosis or edema Psych Appearance: grossly normal Mental Status: mental status grossly normal Speech and Movement: speech and movement normal Mood: congruent mood Affect: normal affect Attitude: cooperative Thought Process: normal Thought Content: normal Insight: insight good Results Imaging Chest x-ray: report reviewed Abdomen CT scan report/results: report reviewed CT scan - chest: report reviewed CT scan - pelvis: report reviewed Labs : 10/12/18 06:22 10/12/18 06:22 Admission labs included sodium 131, potassium 3.9, BUN 11, creatinine 0.82, blood sugar 146. White count 11.18 thousand, hemoglobin 13.6, hematocrit 41.3, platelets 2 71,000. 85 segs 5 lymphs no bands. Urinalysis showed 80 ketones. Last Vital Signs Temp 36.3 C L 10/12/18 10:50 Pulse 91 H 10/12/18 10:50 Resp 18 10/12/18 10:50 BP 132/88 10/12/18 10:50 Pulse Ox 92 L 10/12/18 10:50
--- NOTE | 2018-10-13 14:11 | HPE_ITS ---
Date of service: 10/07/18 Time of Service: 16:09 Assessment and Plan (1) CAP (community acquired pneumonia): Current visit: No Status: Acute Likely community acquired pneumonia without other risk factors. Will treat with ceftriaxone and doxycycline. Oxygen support to maintain sats above 92%. Updrafts and corticosteroids. (2) COPD with acute exacerbation: Current visit: No Status: Acute Long-term smoker. He does not appear he is formally diagnosed with COPD but this likely represents an exacerbation of COPD caused by underlying community-acquired pneumonia. Continue corticosteroids and updrafts with oxygen support. He appears otherwise well compensated at this time. (3) Tobacco abuse: Current visit: No Status: Acute Ongoing tobacco use disorder. Will provide nicotine replacement. He is trying to quit in order to get a right knee replacement. He is down to 4 cigarettes/day. (4) Chronic pain: Current visit: No Status: Chronic Post lumbar laminectomy syndrome, he is on chronic methadone therapy through the [facility] program here in [facility]. He gets 95 mg daily. He got his dose this morning. We will continue on methadone 95 mg p.o. every morning. (5) Discharge planning issues: Current visit: No Status: Acute He is a full code. Admit to [facility] and monitor in acute care status. History of Present Illness Chief Complaint: Pneumonia Narrative: This is a 68-year-old man who is been troubled with cough productive of yellow sputum for 2 days. He notes he got a flu shot 3 days ago and has been sick ever since. In the emergency room the initial chest x-ray showed no evidence of an infiltrate. He had a CT angiogram of the chest, abdomen and pelvis that showed evidence of a right lower lobe pneumonia, no evidence of pulmonary embolism. He had a mildly elevated white blood cell count, lactate of 1.3, sodium 131. He was empirically started on ceftriaxone. Azithromycin was withheld because he is on methadone. We elected to add doxycycline to his regimen. Review of Systems Review of Systems Patient's main complaint was cough and shortness of breath. Constitutional Denies excessive sweating, Denies frequent falls, Denies headache(s) and Denies night sweats Eyes Denies change in vision ENT Denies dizziness, Denies headache(s) and Denies throat swelling Cardiovascular Denies chest pain, Denies edema, Reports dyspnea, Reports dyspnea on exertion and Denies orthopnea Respiratory Reports change in phlegm color, Reports cough, Denies hemoptysis, Reports excessive phlegm production, Denies pain on inspiration, Reports dyspnea and Reports dyspnea on exertion Gastrointestinal Denies change in bowel habits, Denies diarrhea, Denies nausea and Denies vomiting Genitourinary Denies urinary frequency and Denies urinary incontinence Musculoskeletal Denies back pain, Denies deformity and Reports arthralgias Integumentary/Breasts Denies rash, Denies sores and Denies wounds Neurologic Denies confusion, Denies dizziness, Denies frequent falls, Denies headache(s), Denies focal weakness and Denies sensory deficit Psychiatric Denies confusion, Denies depression and Denies suicidal ideation Endocrine Denies cold intolerance and Denies excessive sweating Hematologic/Lymphatic Denies easy bleeding and Denies easy bruising Allergic/Immunologic Denies urticaria and Denies throat swelling [facility] Medical History Anxiety (Chronic) Back pain (Chronic) COPD (chronic obstructive pulmonary disease) (Chronic) Depression (Chronic) GERD (gastroesophageal reflux disease) (Chronic) Insomnia (Chronic) Macrocytosis (Chronic) Numbness and tingling in right hand (Chronic) Post laminectomy syndrome (Chronic) Right knee DJD (Chronic) Tobacco abuse (Chronic) Surgical History History of right knee surgery (Inactive) History of shoulder surgery (Inactive) Hx of tonsillectomy (Inactive) Previous back surgery (Inactive) Social History Smoking/Tobacco Use Status: Current every day Tobacco Type: cigarettes Smoking cigarettes per day: 4 Years smoked: 40 Alcohol Intake: never Drug use: Daily Substance use type: marijuana Do you feel safe at home: Yes Do you feel safe in your relationship?: Yes Additional Social history: He lives in [place], [place] but stays with someone in [facility] to maintain [place] residency so he can participate in the [employer] program. Meds Home Medications Medication Instructions Recorded Confirmed Type cyclobenzaprine 10 mg PO TID tab-cap 01/02/16 10/07/18 History esomeprazole magnesium [Nexium] 20 mg PO DAILY tab-cap 01/02/16 10/07/18 History Flovent HFA 2 puff INHALATION BID 10/07/18 10/07/18 History albuterol sulfate [ProAir HFA] 2 puff INHALATION Q6H PRN 10/07/18 10/07/18 History gabapentin 300 mg PO TID PRN 10/07/18 10/07/18 History methadone 95 mg PO DAILY 10/07/18 10/07/18 History nystatin 0 g TOPICAL BID #0 g 10/12/18 Rx prednisone 10 mg PO DAILY #16 tab 10/12/18 Rx Allergies Allergy/AdvReac Type Severity Reaction Status Date / Time ketorolac [From Toradol] Allergy makes my Unverified 10/07/18 06:32 head wack out codeine AdvReac Nausea Unverified 10/07/18 06:13 Exam Narrative Exam Narrative: Generally pleasant, interactive. He did not appear in any dist ress Const General: cooperative, comfortable and no acute distress Nutritional Appearance: average body habitus Orientation: alert, awake and oriented x3 HENMT Head: normal to inspection Ears: hearing grossly normal bilaterally General nose exam: external nose normal Face and sinus: face symmetric Mouth: oropharynx normal Eyes General: appearance normal, both eyes and all related structures Neck Neck: normal visual inspection Thyroid: symmetrical Carotids: normal carotid upstroke Lymphatic: no lymphadenopathy noted Chest Chest: normal inspection of the chest Resp Effort & Inspection: normal respiratory effort and no use of accessory muscles Other: He had some rales at the right base. Some and expiratory wheezing bilaterally. Otherwise somewhat quiet breath sounds. Cardio Jugular venous pressure: no JVD Rate: regular rate Rhythm: regular rhythm Heart Sounds: S1 normal, S2 normal and no murmurs GI Inspection: normal to inspection Palpation: soft, no hepatosplenomegaly and nontender Male General Exam: Yes normal external exam Back/Spine/Pelvis Back: no CVA tenderness Cervical Spine: normal cervical lordosis Thoracic/Lumbar Spine: thoracic and lumbar spine normal to inspection and surgical scar(s) present Skin General skin exam: no rashes or lesions noted Wounds: no wounds Neuro General: alert, awake, oriented x3, moves all extremities and no focal motor deficits Cranial Nerves: CN's II-XI intact bilaterally Cognition: normal cognition Speech: speech normal Extrem General: normal to inspection and no clubbing, cyanosis or edema Psych Appearance: grossly normal Mental Status: mental status grossly normal Speech and Movement: speech and movement normal Mood: congruent mood Affect: normal affect Attitude: cooperative Thought Process: normal Thought Content: normal Insight: insight good Results Imaging Chest x-ray: report reviewed Abdomen CT scan report/results: report reviewed CT scan - chest: report reviewed CT scan - pelvis: report reviewed Labs : 10/12/18 06:22 10/12/18 06:22 Admission labs included sodium 131, potassium 3.9, BUN 11, creatinine 0.82, blood sugar 146. White count 11.18 thousand, hemoglobin 13.6, hematocrit 41.3, platelets 2 71,000. 85 segs 5 lymphs no bands. Urinalysis showed 80 ketones. Last Vital Signs Temp 36.3 C L 10/12/18 10:50 Pulse 91 H 10/12/18 10:50 Resp 18 10/12/18 10:50 BP 132/88 10/12/18 10:50 Pulse Ox 92 L 10/12/18 10:50
== END 2018-10-12 15:21 | disposition home or self-care (01) | DRG 190 ==
LOC: ER 11:23 → MS 11:55
PROVIDERS: Emergency Medicine; Nurse Practitioner Family; Admitting Provider Family Medicine; Emergency Provider Emergency Medicine; PCP Nurse Practitioner Family; Visit Provider Internal Medicine
DX: J44.0 Chronic obstructive pulmonary disease with (acute) lower respiratory infection (principal); J18.9 Pneumonia, unspecified organism; F11.20 Opioid dependence, uncomplicated; J44.1 Chronic obstructive pulmonary disease with (acute) exacerbation; R09.02 Hypoxemia; R60.0 Localized edema; M96.1 Postlaminectomy syndrome, not elsewhere classified; G89.29 Other chronic pain; K21.9 Gastro-esophageal reflux disease without esophagitis; M25.612 Stiffness of left shoulder, not elsewhere classified; I34.0 Nonrheumatic mitral (valve) insufficiency; M25.611 Stiffness of right shoulder, not elsewhere classified; J02.9 Acute pharyngitis, unspecified; F17.210 Nicotine dependence, cigarettes, uncomplicated; K59.00 Constipation, unspecified; I51.7 Cardiomegaly; I35.0 Nonrheumatic aortic (valve) stenosis
CPT/HCPCS: 36415; 71275; 74177; 80048; 80053; 93005; 93306; 94618; 94640; 96361; 96374; 96375; 97110; 97162; 97166; 97530; 99222; 99232; 99233; 99239; 99285; J1650; 71046; 81003; 83605; 83735; 83880; 84484; 85025; 87070; 87081; 87205; 93010; J0696; J1940; J1941; J2930; J3490; J7512; J7613; J7620

== ENCOUNTER 2018-12-01 18:48 | Inpatient (IN) | payer MEDICARE, MEDICAID, SELFPAY ==
[2018-12-01] VITALS (17 sets, daily range): BP systolic 99–128; BP diastolic 65–82; PULSE 97–114; RESP 2–31; TEMP 37–37.1; O2SAT 70–99
--- NOTE | 2018-12-01 19:21 | DI.RAD_ITS ---
SYMPTOM/DIAGNOSIS: SEVERE SOB PORTABLE AP CHEST: 12/01 Examination is compared to previous examination of 10/09/18. Note is again made of diaphragmatic elevation on the left. Left lung is clear. There are new patchy densities in the right lung which were not present on the previous examination. Cardiac size appears within normal limits. CONCLUSION: Findings raising the possibility of right sided pneumonia. Appropriate follow up studies requested.
[2018-12-01] MEDS: methylPREDNISolone SUCC 125 MG VIAL IVP (19:22)
[2018-12-01 19:24] LABS: Abs Immature Grans 0.01 k/cumm (0.0-0.09); Absolute Basophil Count 0.02 k/cumm (0.0-0.2); Absolute Eosinophil Count 0.22 k/cumm (0.0-0.7); Absolute Lymphocyte Count 0.74 k/cumm (1.2-3.4); Absolute Monocyte Count 0.71 k/cumm (0.11-0.7); Absolute Neutrophil Count 5.75 k/cumm (1.2-6.7); Basophils % 0.3; HCT 40.2 % (40.0-50.0); HGB 12.8 g/dL (13.5-17.5); Immature Grans % 0.1; Lymphocytes % 9.9; Mean Corp. HGB Concentration 31.8 g/dL (32.0-36.0); Mean Corpuscular Hemoglobin 28.5 pg (27.0-33.0); Mean Corpuscular Volume 89.5 fL (80-95); Mean Platelet Volume 10.1 fL (8.0-11.0); Monocytes % 9.5; Neutrophils % 77.2; Platelet Count 264 x1000/uL (130-400); RBC 4.49 m/cumm (4.50-6.00); RBC Distribution Width 14.1 % (11.8-14.1); White Blood Cell Count 7.45 k/cumm (4.4-10.8)
[2018-12-01] MEDS: Albuterol/Ipratropium 3 ML UPD VIAL 9 ML UPD (19:28)
[2018-12-01 19:32] LABS: BE (Venous) 8.9 mmol/L (-3-3); HCO3 (Venous) 34 mmol/L (22-28); O2 Sat (Venous) 37 % (70-80); TCO2 (Venous) 31 mmol/L (22-29); pCO2 (Venous) 55 mm/Hg (34-47); pO2 (Venous) 23 mm/Hg (28-44)
[2018-12-01 19:44] LABS: PTT Activated 28.3 sec (21.0-31.4); Prothrombin Time 11.5 sec (9.3-11.0)
[2018-12-01 19:47] LABS: INR 1.1 (0.9-1.1)
[2018-12-01 19:55] LABS: ALT 14 U/L (12-78); AST 21 U/L (15-37); Albumin 2.5 g/dL (3.4-5.0); Alkaline Phosphatase 94 U/L (46-116); Anion Gap 7.2 mmol/L (3-11); BUN 8 mg/dL (7-18); Bilirubin, Total 0.4 mg/dL (0.2-1.0); CO2 30.8 mmol/L (21.0-32.0); CREATININE 0.78 mg/dL (0.70-1.30); Calcium 8.9 mg/dL (8.5-10.1); Chloride 93 mmol/L (98-107); Glucose 109 mg/dL (70-100); Potassium 3.7 mmol/L (3.5-5.1); Sodium 131 mmol/L (136-145); Total Protein 7.6 g/dL (6.4-8.2); Troponin I < 0.02 ng/mL (0.00-0.06)
--- NOTE | 2018-12-01 19:55 | DI.VRAD_ITS ---
EXAM: XR Chest, 1 View EXAM DATE/TIME: 12/01/2018 7:03 PM CLINICAL HISTORY: 68 years old, male; Signs and symptoms; Shortness of breath TECHNIQUE: Imaging protocol: XR of the chest, 1 view. COMPARISON: CR XR CHEST 2V PA LATERAL 10/09/2018 11:20 AM FINDINGS: Lungs: There is new asymmetric alveolar density in the peripheral right upper lobe distribution concerning for pulmonary infiltrates or edema. Pleural space: No effusions or pneumothorax. Heart/Mediastinum: Heart size normal. Pulmonary vasculature normal. Bones/joints: Left shoulder arthroplasty without gross hardware complication. Diffuse osteopenia. Evidence of chronic rotator cuff tear involving remodeling in the right shoulder. IMPRESSION: New right-sided alveolar densities concerning for pulmonary infiltrates or edema. Dictated and Authenticated by: Bertin Zhang MD. Ordering:PATY Booker MD
--- NOTE | 2018-12-01 20:24 | ED.GENADUL_ITS ---
Discharge Plan Disposition Patient Disposition: [facility] INPATIENT Condition: Improving Discharge Details Chief Complaint: SOB Clinical Impression: COPD (chronic obstructive pulmonary disease), CAP (community acquired pneumonia) Primary Care Provider: Richelle Dowling ED Provider: Jhony العلي Home Meds and New Rx's Prescriptions: No Action cyclobenzaprine 10 MG tablet 10 mg PO TID RF: 0 esomeprazole magnesium [Nexium] 20 MG capsule,delayed release(DR/EC) 20 mg PO DAILY RF: 0 methadone 10 mg/5 mL Solution 95 mg PO DAILY RF: 0 gabapentin 300 mg Capsule 300 mg PO TID PRNRF: 0 Flovent HFA 220 mcg/actuation Hfa Aerosol Inhaler 2 puff INHALATION BID RF: 0 albuterol sulfate [ProAir HFA] 90 mcg/actuation Hfa Aerosol Inhaler 2 puff INHALATION Q6H PRNRF: 0 Medical Decision Making This is a 68-year-old male with a past medical history of COPD, and chronic tobacco use, who presents today for evaluation of cough, productive sputum, wheeze, and shortness of breath. He denies any associated chest pain. He has notable productive green and yellow sputum. Exam demonstrates notable wheezes throughout, rhonchi on the right, crackles on the right. He was hypoxic on arrival with an O2 in the 70s. Breathing treatments, steroids were administered, the patient's oxygen went to the mid 90s on 6 L. We will get a laboratory work-up, evaluate for cardiac etiology, check for pneumonia on chest x-ray, and treat for COPD exacerbation 9:08 PM On reassessment the patient's lung sounds have improved slightly. Oxygen saturation is currently in the high 80s to 90s on nasal cannula, in the mid 90s on nonrebreather, and in the high 90s on BiPAP. Patient is feeling better after the breathing treatments. Chest x-ray demonstrates evidence concerning for ri ght-sided alveolar densities suggestive of pulmonary infiltrates. With the patient's clinical picture of productive sputum, cough, shortness of breath, notable wheezes I am concerned for severe COPD exacerbation which is responded well to oxygen therapy. With the chest x-ray findings of potential infiltrate with his productive cough we will add Rocephin and doxycycline at this time. With no fever, white count or leukocytosis I doubt severe hospital-acquired pneumonia I do not feel that vancomycin and Zosyn are indicated at this time. Troponin is normal, EKG shows no evidence of STEMI. I discussed the case with Dr. Sarmiento with him, he agrees with the assessment and plan as is made to place bridging orders. The patient will be admitted for further management. Also of note the patient's influenza is negative. EKG 19: 01 Rate 106, sinus tachycardia OH 138, QTc 499, QRS 96, sinus tachycardia, nonspecific T wave abnormalities, no significant ST elevations or depressions, Q waves. CLINICAL HISTORY: 68 years old, male; Signs and symptoms; Shortness of breath TECHNIQUE: Imaging protocol: XR of the chest, 1 view. COMPARISON: CR XR CHEST 2V PA LATERAL 10/09/2018 11:20 AM FINDINGS: Lungs: There is new asymmetric alveolar density in the peripheral right upper lobe distribution concerning for pulmonary infiltrates or edema. Pleural space: No effusions or pneumothorax. Heart/Mediastinum: Heart size normal. Pulmonary vasculature normal. Bones/joints: Left shoulder arthroplasty without gross hardware complication. Diffuse osteopenia. Evidence of chronic rotator cuff tear involving remodeling in the right shoulder. IMPRESSION: New right-sided alveolar densities concerning for pulmonary infiltrates or edema. Dictated and Authenticated by: Bertin Zhang MD. Ordering:PATY Booker MD HPI General Date/Time Provider Initiated Documentation: 12/01/18 18:56 . HPI Narrative: This is a 68-year-old male with a past medical history of COPD, tobacco abuse, still smoking regularly, who presents today for evaluation of cough, shortness of breath, and productive sputum. Patient states that over the last 6 days he has had a cough, with associated shortness of breath. He has been coughing up green and yellow sputum chunks. He has noted a significant worsening of his symptoms in the last 24 hours. He has been taking some occasional inhaler treatments at home but this is only been helping slightly. He denies any chest pain, chest tightness, arm neck or shoulder pain. He denies any vomiting or diarrhea. He denies any history of blood clots, heart attacks, stroke. He has no other complaints at this time. Last admission was in September for similar symptoms. Related Data Home Medications Medication Instructions Recorded Confirmed cyclobenzaprine 10 mg PO TID tab-cap 01/02/16 12/01/18 esomeprazole magnesium [Nexium] 20 mg PO DAILY tab-cap 01/02/16 12/01/18 Flovent HFA 2 puff INHALATION BID 10/07/18 12/01/18 albuterol sulfate [ProAir HFA] 2 puff INHALATION Q6H PRN 10/07/18 12/01/18 gabapentin 300 mg PO TID PRN 10/07/18 12/01/18 methadone 95 mg PO DAILY 10/07/18 12/01/18 Allergies Allergy/AdvReac Type Severity Reaction Status Date / Time ketorolac [From Toradol] Allergy makes my Unverified 12/01/18 19:01 head wack out codeine AdvReac Nausea Unverified 12/01/18 19:01 General Stated Complaint: SOB CARLOS EDUARDO: 2 Review of Systems Review of Systems All systems reviewed & are unremarkable except as noted in HPI and below PFSH Social History Smoking/Tobacco Use Status: Current every day Tobacco Type: cigarettes Alcohol Intake: never Drug use: Daily Substance use type: marijuana Do you feel safe at home: Yes Do you feel safe in your relationship?: Yes Additional Social history: He lives in [place], [place] but stays with someone in [facility] to maintain [place] residency so he can participate in the [employer] program. Exam Narrative Exam Narrative: 1.Const: Thin, cachectic, elderly appearing 2.Eyes: PERRL, no conjunctival injection, and symmetrical lids. 3.ENT: Atraumatic external nose and ears. Moist MM. Neck: Symmetric, trachea midline, No thyromegaly. 4.CVS: +S1/S2, No murmurs or gallops. Peripheral pulses 2+ and equal in all extremities. Brisk capillary refill in all extremities. 5.RESP: Tachypnea, notable wheezes throughout, crackles in the bases bilaterally, notably worse on the right. Notable rhonchi. 6.GI: Soft, Nontender/Nondistended, No hepatosplenomegaly. No guarding or rebound. 7.MSK: Normocephalic/Atraumatic, Extremities w/o deformity or ttp No cyanosis or clubbing, Normal movement of all extremities. No calf swelling, tenderness, or edema. 8.Skin: Warm, Dry. No rashes or lesions. 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 Sensation grossly intact, no focal neurologi c deficits. 10.Psych: (AAO) x3. Appropriate mood and affect Course Vital Signs Temperature 37.1 C 12/01/18 18:57 Pulse 108 H 12/01/18 18:57 Respiratory Rate 30 H 12/01/18 18:57 Pulse Oximetry 70 L 12/01/18 18:57 Temperature 37.1 C 12/01/18 18:57 Temperature Source Skin 12/01/18 18:57 Pulse 110 H 12/01/18 19:56 Respiratory Rate 21 12/01/18 19:56 Respiratory Effort Incrsd Work of Breathing 12/01/18 18:59 Pulse Oximetry 96 12/01/18 19:56 Oxygen Delivery Method Room Air 12/01/18 18:57 Oxygen Flow Rate 0 12/01/18 18:57 Fraction of Inspired Oxygen (FIO2) 32 12/01/18 19:56 Pain Level 0 12/01/18 18:57 Lab/Test Results Lab/Test Results: 12/01/18 19:35 Nasopharynx Influenza Types A,B Antigen - Final Laboratory Tests Range/Units 12/01/18 12/01/18 12/01/18 19:15 19:15 19:15 WBC (4.4-10.8) k/cumm 7.45 RBC (4.50-6.00) m/cumm 4.49 L Hgb (13.5-17.5) g/dL 12.8 L Hct (40.0-50.0) % 40.2 MCV (80-95) fL 89.5 MCH (27.0-33.0) pg 28.5 MCHC (32.0-36.0) g/dL 31.8 L RDW (11.8-14.1) % 14.1 Plt Count (130-400) x1000/uL 264 MPV (8.0-11.0) fL 10.1 Immature Gran % 0.1 Neutrophils % 77.2 Lymphocytes % 9.9 Monocytes % 9.5 Eosinophils % 3.0 Basophils % 0.3 Absolute Neutrophils (1.2-6.7) k/cumm 5.75 Absolute Lymphocytes (1.2-3.4) k/cumm 0.74 L Absolute Monocytes (0.11-0.7) k/cumm 0.71 H Absolute Eosinophils (0.0-0.7) k/cumm 0.22 Absolute Basophils (0.0-0.2) k/cumm 0.02 PT (9.3-11.0) sec 11.5 H INR (0.9-1.1) 1.1 APTT (21.0-31.4) sec 28.3 VBG pH (7.32-7.43) VBG pCO2 (34-47) mm/Hg VBG pO2 (28-44) mm/Hg VBG HCO3 (22-28) mmol/L VBG Total CO2 (22-29) mmol/L VBG O2 Saturation (70-80) % VBG Base Excess (-3-3) mmol/L Sodium (136-145) mmol/L 131 L Potassium (3.5-5.1) mmol/L 3.7 Chloride (98-107) mmol/L 93 L Carbon Dioxide (21.0-32.0) mmol/L 30.8 Anion Gap (3-11) mmol/L 7.2 BUN (7-18) mg/dL 8 Creatinine (0.70-1.30) mg/dL 0.78 Estimated GFR/1.73 m2 (mL/min/1.73m2) >= 60.00 Glucose (70-100) mg/dL 109 H Calcium (8.5-10.1) mg/dL 8.9 Total Bilirubin (0.2-1.0) mg/dL 0.4 AST (15-37) U/L 21 ALT (12-78) U/L 14 Alkaline Phosphatase (46-116) U/L 94 Troponin I (0.00-0.06) ng/mL < 0.02 Total Protein (6.4-8.2) g/dL 7.6 Albumin (3.4-5.0) g/dL 2.5 L Range/Units 12/01/18 19:15 WBC (4.4-10.8) k/cumm RBC (4.50-6.00) m/cumm Hgb (13.5-17.5) g/dL Hct (40.0-50.0) % MCV (80-95) fL MCH (27.0-33.0) pg MCHC (32.0-36.0) g/dL RDW (11.8-14.1) % Plt Count (130-400) x1000/uL MPV (8.0-11.0) fL Immature Gran % Neutrophils % Lymphocytes % Monocytes % Eosinophils % Basophils % Absolute Neutrophils (1.2-6.7) k/cumm Absolute Lymphocytes (1.2-3.4) k/cumm Absolute Monocytes (0.11-0.7) k/cumm Absolute Eosinophils (0.0-0.7) k/cumm Absolute Basophils (0.0-0.2) k/cumm PT (9.3-11.0) sec INR (0.9-1.1) APTT (21.0-31.4) sec VBG pH (7.32-7.43) 7.40 VBG pCO2 (34-47) mm/Hg 55 H VBG pO2 (28-44) mm/Hg 23 L VBG HCO3 (22-28) mmol/L 34 H VBG Total CO2 (22-29) mmol/L 31 H VBG O2 Saturation (70-80) % 37 L VBG Base Excess (-3-3) mmol/L 8.9 H Sodium (136-145) mmol/L Potassium (3.5-5.1) mmol/L Chloride (98-107) mmol/L Carbon Dioxide (21.0-32.0) mmol/L Anion Gap (3-11) mmol/L BUN (7-18) mg/dL Creatinine (0.70-1.30) mg/dL Estimated GFR/1.73 m2 (mL/min/1.73m2) Glucose (70-100) mg/dL Calcium (8.5-10.1) mg/dL Total Bilirubin (0.2-1.0) mg/dL AST (15-37) U/L ALT (12-78) U/L Alkaline Phosphatase (46-116) U/L Troponin I (0.00-0.06) ng/mL Total Protein (6.4-8.2) g/dL Albumin (3.4-5.0) g/dL
[2018-12-01] MEDS: cefTRIAXone 2 GM/50 ML BAG IVPB (21:01)
[2018-12-01] MEDS: Normal Saline Flush 10 ML SYR IVP (21:02)
[2018-12-01] MEDS: Normal Saline 1,000 ML 1000 ML IV (21:02)
--- NOTE | 2018-12-01 22:50 | HPE_ITS ---
Date of service: 12/01/18 Time of Service: 22:50 Assessment and Plan (1) HCAP (healthcare-associated pneumonia): Current visit: Yes Status: Acute Obtain blood and sputum cultures including urine for Legionella and mycoplasma studies. We will begin broad-spectrum antibiotics with cefepime for coverage of gram negatives including Pseudomonas as well as vancomycin for coverage of staph. Continue treatment with doxycycline pending results of his atypical studies. If there is no significant response to the antibiotics and corticosteroids further evaluation of his right-sided infiltrate should be considered including high-resolution CT scan of his chest looking for pulmonary fibrosis or atypical pneumonia or lymphangitic lung cancer. Furthermore referral to pulmonary should be considered upon discharge. Patient may need fiberoptic bronchoscopy with bronchoalveolar lavage and transbronchial biopsies for further diagnosis. (2) COPD with acute exacerbation: Current visit: Yes Status: Acute We will treat with IV corticosteroids and broad-spectrum antibiotics as listed above continue with scheduled aerosolized bronchodilators. Referral to pulmonary upon discharge from the hospital. Patient states she is currently up-to-date on his pneumonia vaccine and influenza vaccines. History of Present Illness Chief Complaint: Cough, dyspnea Narrative: 68-year-old male with history of COPD and recent hospitalization at [facility] from October 07 through October 12, 2018 for community-acquired pneumonia treated with a 6-day course of ceftriaxone and doxycycline as well as corticosteroids. He was discharged home on tapering dose of prednisone. Patient is not on home oxygen. He continues to smoke about a pack of cigarettes a week. He is been a smoker off and on for the past 40 years. He presents to the emergency department with increasing shortness of breath over the past 2 weeks along with a cough that usually is productive of whitish mucus but now is yellow-tinged to it. No hemoptysis. No rigors. Upon presentation he was tachypneic and tachycardic and hypoxemic with an oxygen saturation of 70% on room air and respiratory rate in the 30s and a heart rate in the low 100s to 110s. Patient had been using his inhaled bronchodilators at home without improvement in his dyspnea. Patient allegedly has lost 100 pounds from July this year until his current admission. He currently weighs 160 pounds and he allegedly weighed 260 pounds in July. He denies any night sweats. During his last hospitalization serial chest x-rays showed no significant improvement in his right-sided infiltrates and no post hospitalization chest x-ray has been obtained. There is last hospitalization he was evaluated with an echocardiogram that showed normal left ventricular systolic function with an ejection fraction of 6065% but findings suggestive of diastolic dysfunction with elevated left ventricular filling pressures. He has some mild valvular heart disease include mild aortic stenosis, mild mitral regurgitation. He also had evidence of mild pulmonary hypertension. His hospitalization he also underwent CTA of his chest to rule out a pulmonary embolus. CT confirmed a right lower lobe infiltrate but no evidence for pulmonary emboli nor any aortic dissection. He also had an abdominal pelvic CT that showed no acute abnormality. Current work-up in the emergency department by Dr. Jhony العلي include a CBC that showed a normal white count of 7400 along with a mild anemia with hemoglobin 12.8 g hematocrit 40%. There is no leftward shift in his white blood cell count. Venous blood gas demonstrated normal pH 7.40 with an elevated venous CO2 of 55 and a low venous O2 of 23 mm. CMP was remarkable for mild hyponatremia of 131 and mild hypochloremia of 93. Carbon dioxide level was normal at 30.8 BUN/creatinine were normal LFTs were normal. His troponin level was less than 0.02. He had a procalcitonin level came back less than 0.1. In the emergency room this evening, he received multiple DuoNeb treatments along with IV corticosteroids and was started on ceftriaxone and doxycycline for pneumonia. Because of the patient's recent hospitalization and no evidence of radiologic clearance of his previous right-sided pneumonia it was decided to expand his antibiotic coverage to treat him for healthcare acquired pneumonia. Blood cultures have been obtained and is been started on vancomycin along with cefepime and doxycycline. Consideration was given for quinolone however because of his chronic methadone use for his chronic back pain and because of his QTC of 499 ms it was decided not to give him a quinolone antibiotic. Patient is now admitted for treatment of healthcare acquired pneumonia and COPD. Patient initially required noninvasive positive pressure ventilatory support with BiPAP but after multiple aerosol treatments and IV corticosteroids and some time on the BiPAP his respiratory status improved the patient was deemed to be stable enough to be admitted to the medical/surgical floor on high flow nasal cannula oxygen. Review of Systems Constitutional Reports anorexia, Reports fatigue, Reports poor appetite and Reports weight loss Eyes Reports system reviewed and no additional complaints, except as docu ENT Reports system reviewed and no additional complaints, except as docu Cardiovascular Denies chest pain, Denies chest pain with activity, Reports dyspnea and Reports dyspnea on exertion Respiratory Reports change in phlegm color, Reports chest congestion, Reports cough, Denies hemoptysis, Reports excessive phlegm production, Denies pain on inspiration, Denies pain with cough, Reports dyspnea, Reports dyspnea on exertion and Reports wheezing Gastrointestinal Reports system reviewed and no additional complaints, except as docu Genitourinary Reports system reviewed and no additional complaints, except as docu Musculoskeletal Reports numbness (Both hands) and Reports tingling Comments: Both hands Integumentary/Breasts Reports system reviewed and no additional complaints, except as docu Neurologic Reports numbness (Both hands) and Reports tingling Psychiatric Reports system reviewed and no additional complaints, except as docu Endocrine Reports system reviewed and no additional complaints, except as docu and Reports fatigue Hematologic/Lymphatic Reports system reviewed and no additional complaints, except as docu Allergic/Immunologic Reports system reviewed and no additional complaints, except as docu and Reports wheezing [facility] Medical History Anxiety (Chronic) Back pain (Chronic) COPD (chronic obstructive pulmonary disease) (Chronic) Depression (Chronic) GERD (gastroesophageal reflux disease) (Chronic) Insomnia (Chronic) Macrocytosis (Chronic) Numbness and tingling in right hand (Chronic) Post laminectomy syndrome (Chronic) Right knee DJD (Chronic) Tobacco abuse (Chronic) Surgical History History of right knee surgery (Inactive) History of shoulder surgery (Inactive) Hx of tonsillectomy (Inactive) Previous back surgery (Inactive) Social History Smoking/Tobacco Use Status: Current every day Tobacco Type: cigarettes Alcohol Intake: never Drug use: Daily Substance use type: marijuana Do you feel safe at home: Yes Do you feel safe in your relationship?: Yes Additional Social history: He lives in [place], [place] but stays with someone in [facility] to maintain [place] residency so he can participate in the [employer] program. Meds Home Medications Medication Instructions Recorded Confirmed Type cyclobenzaprine 10 mg PO TID tab-cap 01/02/16 12/01/18 History esomeprazole magnesium [Nexium] 20 mg PO DAILY tab-cap 01/02/16 12/01/18 History Flovent HFA 2 puff INHALATION BID 10/07/18 12/01/18 History albuterol sulfate [ProAir HFA] 2 puff INHALATION Q6H PRN 10/07/18 12/01/18 History gabapentin 300 mg PO TID PRN 10/07/18 12/01/18 History methadone 95 mg PO DAILY 10/07/18 12/01/18 History Allergies Allergy/AdvReac Type Severity Reaction Status Date / Time ketorolac [From Toradol] Allergy makes my Unverified 12/01/18 19:01 head wack out codeine AdvReac Nausea Unverified 12/01/18 19:01 Exam Const General: cooperative, disheveled and ill appearing chronically Nutritional Appearance: underweight Orientation: alert, awake and oriented x3 HENMT Head: normal to inspection, no palpable skull fracture, atraumatic and no acral cyanosis Ears: hearing grossly normal bilaterally, external ears normal and TM's normal bilaterally General nose exam: external nose normal Face and sinus: normal facial exam Mouth: moist mucous membranes abnormal (Dry mucous membranes), oral mucosa abnormal (Dry furrowed tongue, dry mucous membranes) and tongue abnormal fissured and papillated Teeth and gingiva: edentulous Eyes General: appearance normal, both eyes and all related structures Visual Rg: normal visual rg by confrontation Alignment and Position: alignment normal Periorbital: periorbital findings normal Eyelids: eyelids normal Conjunctivae: conjunctivae normal Sclera: sclerae normal Cornea: corneas normal Pupils: PERRL EOM: EOM intact bilaterally Direct ophthalmoscopy: normal light reflex Neck Neck: normal visual inspection, full ROM, no lymphadenopathy and trachea midline Thyroid: thyroid normal Carotids: normal carotid upstroke Lymphatic: no lymphadenopathy noted Chest Chest: abnormal inspection of the chest barrel chest Resp Effort & Inspection: tachypneic and prolonged expiratory phase Auscultation: bronchovesicular breath sounds on the right, crackles on the right and rales on the right (Dry rales) throughout Cardio Jugular venous pressure: no JVD Palpation: normal PMI Rate: regular rate Rhythm: regular rhythm Heart Sounds: S1 normal and S2 normal Pulses: normal peripheral pulses GI Inspection: normal to inspection Palpation: soft Percussion: normal to percussion Auscultation: normal bowel sounds General: No CVA tenderness Back/Spine/Pelvis Back: no CVA tenderness Cervical Spine: normal cervical lordosis Thoracic/Lumbar Spine: thoracic and lumbar spine normal to inspection Skin General skin exam: no rashes or lesions noted and dry skin Nails: clubbing Neuro General: alert, awake, oriented x3, moves all extremities and no focal motor deficits Cognition: normal cognition Speech: speech normal Motor: muscle tone normal throughout, strength 5/5 throughout and no movement abnormalities noted Extrem General: full ROM, no pedal edema, no calf tenderness and clubbing Psych Appearance: disheveled Mental Status: mental status grossly normal Speech and Movement: speech and movement normal Mood: congruent mood Affect: normal affect Attitude: cooperative Thought Process: normal Thought Content: normal Insight: insight good Judgment: judgment good Results Imaging Chest x-ray: image reviewed (IMPRESSION: New right-sided alveolar den sities concerning for pulmonary infiltrates or edema. Dictated and Authenticated by: Bertin Zhang MD) Labs : 12/01/18 19:15 12/01/18 19:15 Laboratory Results - last 24 hr 12/01/18 12/01/18 12/01/18 19:15 19:15 19:15 WBC 7.45 RBC 4.49 L Hgb 12.8 L Hct 40.2 MCV 89.5 MCH 28.5 MCHC 31.8 L RDW 14.1 Plt Count 264 MPV 10.1 Immature Gran % 0.1 Neutrophils % 77.2 Lymphocytes % 9.9 Monocytes % 9.5 Eosinophils % 3.0 Basophils % 0.3 Absolute Neutrophils 5.75 Absolute Lymphocytes 0.74 L Absolute Monocytes 0.71 H Absolute Eosinophils 0.22 Absolute Basophils 0.02 PT 11.5 H INR 1.1 APTT 28.3 VBG pH VBG pCO2 VBG pO2 VBG HCO3 VBG Total CO2 VBG O2 Saturation VBG Base Excess Sodium 131 L Potassium 3.7 Chloride 93 L Carbon Dioxide 30.8 Anion Gap 7.2 BUN 8 Creatinine 0.78 Estimated GFR/1.73 m2 >= 60.00 Glucose 109 H Calcium 8.9 Total Bilirubin 0.4 AST 21 ALT 14 Alkaline Phosphatase 94 Troponin I < 0.02 Total Protein 7.6 Albumin 2.5 L 12/01/18 19:15 WBC RBC Hgb Hct MCV MCH MCHC RDW Plt Count MPV Immature Gran % Neutrophils % Lymphocytes % Monocytes % Eosinophils % Basophils % Absolute Neutrophils Absolute Lymphocytes Absolute Monocytes Absolute Eosinophils Absolute Basophils PT INR APTT VBG pH 7.40 VBG pCO2 55 H VBG pO2 23 L VBG HCO3 34 H VBG Total CO2 31 H VBG O2 Saturation 37 L VBG Base Excess 8.9 H Sodium Potassium Chloride Carbon Dioxide Anion Gap BUN Creatinine Estimated GFR/1.73 m2 Glucose Calcium Total Bilirubin AST ALT Alkaline Phosphatase Troponin I Total Protein Albumin Last Vital Signs Temp 37 C 12/01/18 21:45 Pulse 101 H 12/01/18 21:45 Resp 22 12/01/18 21:45 BP 112/75 12/01/18 21:45 Pulse Ox 98 12/01/18 21:45
[2018-12-01 23:10] LABS: Procalcitonin < 0.1 ng/mL
[2018-12-01] MEDS: Acetaminophen 325 MG TAB PO (23:46)
[2018-12-01] MEDS: guaiFENesin 600 MG TABCR 1200 MG PO (23:46)
[2018-12-01] MEDS: CEFEPIME 2 GM in Normal Saline 100 ML IVPB (23:47)
[2018-12-02] VITALS (11 sets, daily range): BP systolic 107–120; BP diastolic 58–77; PULSE 20–100; RESP 20–24; TEMP 36.1–36.7; O2SAT 91–96
[2018-12-02] MEDS: DOXYCYCLINE 100 MG in Normal Saline 100 ML IVPB ×2 (00:43→12:09)
[2018-12-02] MEDS: VANCOMYCIN 1,000 MG in Normal Saline 250 ML 250 MG IV (02:03)
[2018-12-02] MEDS: methylPREDNISolone SUCC 125 MG VIAL 80 MG IVP ×2 (02:04→12:51)
[2018-12-02 07:24] LABS: Abs Immature Grans 0.01 k/cumm (0.0-0.09); Absolute Lymphocyte Count 0.34 k/cumm (1.2-3.4); Absolute Monocyte Count 0.09 k/cumm (0.11-0.7); Absolute Neutrophil Count 1.79 k/cumm (1.2-6.7); HCT 35.7 % (40.0-50.0); HGB 11.3 g/dL (13.5-17.5); Immature Grans % 0.4; Lymphocytes % 15.2; Mean Corp. HGB Concentration 31.7 g/dL (32.0-36.0); Mean Corpuscular Hemoglobin 28.6 pg (27.0-33.0); Mean Corpuscular Volume 90.4 fL (80-95); Mean Platelet Volume 10.5 fL (8.0-11.0); Neutrophils % 80.4; Platelet Count 212 x1000/uL (130-400); RBC 3.95 m/cumm (4.50-6.00); RBC Distribution Width 14.1 % (11.8-14.1); White Blood Cell Count 2.23 k/cumm (4.4-10.8)
--- NOTE | 2018-12-02 07:38 | NUR.NOTE ---
Nursing Note: [id number]: called [facility] and spoke with Micheline, dispensing nurse. pt currently taking 95mg methadone PO daily. pt receives take home methadone and should have enough to last until 12/08/18. reported dosing information to Zuri in pharmacy.
[2018-12-02 07:42] LABS: BUN 7 mg/dL (7-18); CREATININE 0.63 mg/dL (0.70-1.30); Calcium 8.6 mg/dL (8.5-10.1); Chloride 99 mmol/L (98-107); Glucose 209 mg/dL (70-100); Magnesium 2.2 mg/dL (1.8-2.4); Potassium 4.1 mmol/L (3.5-5.1); Sodium 135 mmol/L (136-145)
[2018-12-02] MEDS: Mometasone 220 MCG 14 DOSE INHALER 2 PUFF IH ×2 (07:55→19:44)
[2018-12-02] MEDS: Cyclobenzaprine 10 MG TAB PO ×3 (08:07→19:45)
[2018-12-02] MEDS: Esomeprazole 20 MG CAPCR PO (08:07)
[2018-12-02] MEDS: CEFEPIME 2 GM in Normal Saline 100 ML IVPB ×2 (08:07→16:18)
[2018-12-02] MEDS: guaiFENesin 600 MG TABCR 1200 MG PO ×2 (08:07→19:45)
[2018-12-02] MEDS: Methadone Liquid 10 MG/ML 95 MG PO (08:08)
--- NOTE | 2018-12-02 10:35 | EVALE_ITS ---
Date of service: 12/02/18 Time of Service: 09:20 Speech Therapy Evaluation Note: REFERRING PROVIDER: Dr. Kapoor BACKGROUND This is a 68 year old right-handed male who presented to the ED from his daughter's home on 12/01/18 with c/o a 2-week h/o dyspnea and cough. A CXR of that date showed RUL densities. He was admitted for tx of HCAP & COPD exacerbation and a swallow evaluation was requested to assess for aspiration risk. PMH: COPD, GERD, anxiety, depression, insomnia, back pain, DJD of R knee, current smoker. The patient (pt) is able to give additional background information with regard to p.o. consistencies taken at home in the weeks prior to this admission. He takes what, by description, are Thin liquids, a Dysphagia Advanced diet with chopped meats and whole pills with a liquid wash. OBJECTIVE Nursing reports: - T: 36.6\ - O2 sat: 94% on 3L via NC - LS: wheezes bilaterally (B) in the presence of ABX - Pt is currently on Thin liquids, a Regular consistency diet & whole pills with a liquid wash. He tolerated his morning pills well today. The pt is sitting on the edge of his bed on my arrival. He greets me with good direct eye contact, a smile and an intelligible verbal greeting. He looks considerably older than his stated age. He is able to converse well, both asking & answering questions despite his dyspnea. He is A & O x 4 and able to follow 3-step directions. Oral Sensorimotor Exam The pt is totally edentulous and without dentures. He states this has been the case for a few years and denies any oral discomfort. Oral sensation for buccal, labial & lingual areas is WNL-B. Motorically, the smile is symmetrical as are forehead wrinkles. Labial & buccal strength/coordination are both WNL. No lingual deviation on protrusion is seen in a setting of good excursion. Lingual & mandibular lateralization are both WNL-B. Lingual rapid alternating movements are mildly decreased. Lingual strength is WNL-B. Velopharyngeal elevation is strong & symmetrical. Volitional cough & throat-clear are both strong. Speech intelligibility to this unfamiliar listener in a setting of mild background noise is 100%. Vocal quality is inconsistently mildly-moderately hoarse. Vocal intensity is mildly decreased. Swallowing - Honey-thick liquid: Good bolus control & posterior oral transit (POT); no ilsa signs/systems (s/s) of aspiration/penetration (A/P); oral clearance 100%; no oral escape. These results are true for both single & consecutive swallows by cup. - Ardoch-thick liquid: Results are the same as for Honey-thick liqiud. These results are true for both single & consecutive swallows by both cup & straw. - Thin liquid: Results are the same as for Ardoch-thick lqiuid. - Puree food: Good bolus control & linguopalatal bolus compression; POT WNL; no ilsa s/s A/P; oral clearance 100%; no oral escape. - Mechanically Altered food: Good bolus control & mastication quality; POT WNL; no ilsa s/s A/P; oral clearance 100%; no oral escape. - Dysphagia Advanced food: Use of increased mastication time but this does result in good mastication quality; POT WNL; no ilsa s/s A/P; oral clearance 100%; no oral escape. The pt is observed to independently self-feed using his dominant RUE. He has decreased upper extremity ROM so tipping a glass of liquid up is difficult for him. He tends to compensate for this by leaning his torso backward. Access to liquid is easier for him with use of a straw. IMPRESSION The pt shows no clinical signs of a pharyngeal dysphagia. Consequently, he is felt to be at minimal risk of aspiration. He does, however, show a mild- moderate oral-prep dysphagia secondary to total edentulousness. RECOMMENDATIONS 1. Continue: - Thin liquids - whole pills with a liquid wash 2. Change to a Dysphagia Advanced diet with moistened chopped meats. 3. Encourage pt to take liquids by straw for easier access. 4. Independent self-feeding. 5. No speech therapy for swallowing is indicated at this time. Thank you for referring this pt.
[2018-12-02] MEDS: Albuterol/Ipratropium 3 ML UPD VIAL UPD ×3 (11:30→23:48)
--- NOTE | 2018-12-02 12:05 | PHARADMIT ---
Addendum entered by Nicolle Hanks 12/05/18 14:27: Pharmacy Note Subjective pt feeling better but is SOB with exertion; aspiration pneumonitis or inflammatory etiology? Objective HR-98 other VS okay Assessment no med changes Plan continue to watch VS, labs and for med changes; send up methadone daily Addendum entered by Paradise Cole 12/04/18 12:11: Pharmacy Note Subjective ? PNEUMONITIS VS PNEUMONIA Objective pain 0-10/10, vs ok, wt up to 79kg from 73kg, PROCALCITONIN NEG x 2, last BM listed in shift report as 12/04 Assessment md stopped antibiotics Plan SEND UP METHADONE DOSE DAILY, Addendum entered by Paradise Cole 12/03/18 14:13: Pharmacy Note Subjective ? PNEUMONITIS VS PNEUMONIA Objective PROCALCITONIN NEG(MDA) Assessment VANCOMYCIN AND PIP/TAZO CONTINUE, CEFEPIME AND DOXYCYCLINE STOPPED, OBTAIN SPUTUM CULTURE, STEROIDS WEANING Plan SEND UP METHADONE DOSE DAILY, Original Note: Admission Pharmacy Clinical Review COPD and COMMUNITY ACQUIRED PNEUMONIA Code Status Full Code Current Weight Wgt-72.5 kg Renally Cleared and Narrow Therapeutic Index Meds CrCl~ 80 mL/min Meds-OK QTc Value / Action Taken QTc-499 ( Methadone,Nexium BP Control, Fever BG- 107/58 Tmax- 37C Electrolytes reviewed Na-135 K+4.1 Mag-2.2 DVT Prophylaxis Lovenox Opiate Usage / Scheduled Bowel Regimen Ordered Methadone, Yes Plt/SCr for Heparin / Enoxaparin Plts-212 SCr-0.63 INR for Warfarin inr-1.1 H/H stable, WBC/Bands H&H- 11.3/35.7 WBC- 2.23 Antibiotic appropriateness Cefepime, Vancomycin, Doxycycline Cultures and Sensitivities Blood-pending,[id number], Flu-Neg Surgical ABX d/c within 24 hr na DM control / Insulin Dosing BG-209 Heart Failure (Check EF%) (CHILANGO's, B-Block, Diuretics) none IV to PO Switch No Home Meds Reviewed Yes Home Meds Not Ordered Flovent-(Asmanex subst.) Comments
[2018-12-02 12:07] LABS: BE 5.6 mmol/L (-3-3); HCO3 30 mmol/L (22-28); pCO2 45 mmHg (34-47); pH 7.43 (7.35-7.45); pO2 41 mmHg (83-108); sO2 78 % (94-98); tCO2 28 mmol/L (22-29)
[2018-12-02 12:09] LABS: FIO2L 0 L; Site Right Radial
[2018-12-02 12:10] LABS: FIO2 Room Air %
--- NOTE | 2018-12-02 12:26 | PDOC.CMIN ---
- If Service Date Differs Date of service: 12/02/18 Time of Service: 12:26 Care Management Initial Assess REASON FOR HOSPITALIZATION:: HCAP, COPD with acute exacerbation of COPD PAST MEDICAL HISTORY/PAST SURGICAL HISTORY:: Anxiety (Chronic). Back pain (Chronic). COPD (chronic obstructive pulmonary disease) (Chronic). Depression (Chronic). GERD (gastroesophageal reflux disease) (Chronic). Insomnia (Chronic). Macrocytosis (Chronic). Numbness and tingling in right hand (Chronic). Post laminectomy syndrome (Chronic). Right knee DJD (Chronic). Tobacco abuse (Chronic). History of right knee surgery (Inactive). History of shoulder surgery (Inactive). Hx of tonsillectomy (Inactive). Previous back surgery (Inactive) PREVIOUS FUNCTIONAL STATUS/SOCIAL/FAMILY SUPPORTS:: Eladio resides with his daughter Zoya and her family in [place], [place]. He reports that he has two other children whom reside in [facility]. Eladio reports that he no longer drives and utilizes [employer] for transportation. Eladio is independent at baseline, and manages ADL's CURRENT FUNCTIONAL STATUS:: Currently Eladio is lying in bed when this typewriter repairer visits. He is pleasant and receptive to discussion. ADVANCE DIRECTIVES:: None on file Has patient been provided with information about the portal?: Yes Did the patient sign up for the portal?: No CODE STATUS:: Full Code INSURANCE COVERAGE / FINANCIAL ISSUES:: CALLIE, JOSÉ CURRENT HOME/COMMUNITY SERVICES/EQUIPMENT:: Currently Eladio receives Methadone through [facility] and states that he has receives Methadone for two weeks at a time through the [facility]. PRIMARY CARE PHYSICIAN:: Richelle Dowling POTENTIAL DISCHARGE NEEDS:: F/U appointment with PCP PATIENT/FAMILY EDUCATION NEEDS:: Review DC instructions, any limitations, and ongoing DC planning discussion. discuss 'Ask Me three' ANTICIPATED BARRIERS TO DISCHARGE:: None identified at this time. TRANSPORTATION:: Via private vehicle with ricky Kenny PLAN:: Eladio will return home with a resumption of [facility] services. He will F/U with PCP and plan of care as prescribed. Ricky Kenny to transport.
--- NOTE | 2018-12-02 12:33 | INITIAL_ITS ---
- If Service Date Differs Date of service: 12/02/18 Time of Service: 12:26 Care Management Initial Assess REASON FOR HOSPITALIZATION:: HCAP, COPD with acute exacerbation of COPD PAST MEDICAL HISTORY/PAST SURGICAL HISTORY:: Anxiety (Chronic). 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 COPD (chronic obstructive pulmonary disease) (Chronic). Depression (Chronic). GERD (gastroesophageal reflux disease) (Chronic). Insomnia (Chronic). Macrocytosis (Chronic). Numbness and tingling in right hand (Chronic). Post laminectomy syndrome (Chronic). Right knee DJD (Chronic). Tobacco abuse (Chronic). History of right knee surgery (Inactive). History of shoulder surgery (Inactive). Hx of tonsillectomy (Inactive). Previous back surgery (Inactive) PREVIOUS FUNCTIONAL STATUS/SOCIAL/FAMILY SUPPORTS:: Eladio resides with his daughter Zoya and her family in [place], [place]. He reports that he has two other children whom reside in [facility]. Eladio reports that he no longer drives and utilizes [employer] for transportation. Eladio is independent at baseline, and manages ADL's CURRENT FUNCTIONAL STATUS:: Currently Eladio is lying in bed when this entry writer visits. He is pleasant and receptive to discussion. ADVANCE DIRECTIVES:: None on file Has patient been provided with information about the portal?: Yes Did the patient sign up for the portal?: No CODE STATUS:: Full Code INSURANCE COVERAGE / FINANCIAL ISSUES:: [facility], JOSÉ CURRENT HOME/COMMUNITY SERVICES/EQUIPMENT:: Currently Eladio receives Methadone through [facility] and states that he has receives Methadone for two weeks at a time through the [facility]. PRIMARY CARE PHYSICIAN:: Richelle Dowling POTENTIAL DISCHARGE NEEDS:: F/U appointment with PCP PATIENT/FAMILY EDUCATION NEEDS:: Review DC instructions, any limitations, and ongoing DC planning discussion. discuss 'Ask Me three' ANTICIPATED BARRIERS TO DISCHARGE:: None identified at this time. TRANSPORTATION:: Via private vehicle with ricky Kenny PLAN:: Eladio will return home with a resumption of [facility] services. He will F/U with PCP and plan of care as prescribed. Ricky Kenny to transport.
[2018-12-02] MEDS: Normal Saline Flush 10 ML SYR IVP ×3 (12:50→16:18)
[2018-12-02] MEDS: Omnipaque 350 MG/ML 100 ML BTL IJ (13:34)
--- NOTE | 2018-12-02 13:35 | DI.CT_ITS ---
SYMPTOMS/DIAGNOSIS: PERSISTENT RIGHT LOWER LOBE INFILTRATE, ? MASS CT CHEST: CT examination of the chest was performed with a bolus infusion of 70 cc of Omnipaque 350. There is marked motion artifact and breathing artifact on this examination. Images obtained through the upper abdomen show grossly unremarkable appearance of visualized portions of kidneys and adrenals, as well as spleen. There is a question of a nodular hepatic contour raising the possibility of cirrhosis. There is cholelithiasis. Thoracic vessels are poorly opacified. No gross thoracic aortic aneurysm or dissection. No central pulmonary embolus but lobar and segmental pulmonary arteries are not well visualized. No gross mediastinal or hilar adenopathy. Comparison with the previous CT of 10/07/18 shows apparent increased ground-glass radiodensities in right upper lobe in comparison with the previous examination. Increased ground-glass radiodensities also noted in portions of the right lower lobe. Peripheral areas of consolidation seen in right lower lobe on previous examination appear to have resolved. There are new areas of apparent consolidation in the left upper lobe. Left lower lobe remains clear. CONCLUSION: New ground-glass and consolidative opacities in both lungs suggesting acute pneumonia; resolution of right basilar pneumonia seen on previous examination of 10/07/18 is also noted.
[2018-12-02] MEDS: LORazepam 2 MG/ML VIAL 0.5 MG IVP (13:40)
--- NOTE | 2018-12-02 19:28 | W.PM.PROGNOT ---
Date of Service Date of service: 12/02/18 Time of Service: 19:29 Assessment and Plan (1) HCAP (healthcare-associated pneumonia): Current visit: Yes Status: Acute vs pneumonitis due to aspiration. Abx adjusted to vancomycin and zosyn. It is noteworthy that his procalcitonin is negative - making the possibility of pneumonitis higher on differential. For now, continue above antibiotics, start to wean steroids. Obtaining sputum culture. Continue scheduled nebs, antitussives. (2) Acute respiratory failure with hypoxia: Current visit: Yes Status: Acute as above (3) COPD with acute exacerbation: Current visit: Yes Status: Acute as above (4) Dysphagia: Current visit: Yes Status: Acute farhat-prep dysphagia. Modified diet ordered (5) Chronic pain: Current visit: No Status: Chronic Continue methadone. It is possible that events of aspiration happen when patient takes methadone - it will be good to observe patient's reaction to methadone here. (6) GERD (gastroesophageal reflux disease): Current visit: No Status: Chronic Continue nexium (7) Tobacco abuse: Current visit: No Status: Acute Counselled on quitting. Provide nicotine replacement therapy (8) DVT prophylaxis: Current visit: No Status: Acute Continue SC lovenox (9) Discharge planning issues: Current visit: Yes Status: Acute Full code Subjective Interval history since last seen: State breathing is better. Denies dizziness, chest pain, nausea, vomiting. Exam Narrative Exam Narrative: General: Somnolent middle-aged male, easily arousable HEENT: EOMI, MMM, edentuous Heart: RRR, no m/r/g Lungs: Diminished at the L base, rhonchi heard on the R GI: abdomen is soft, nontender, nondistended Extremities: trace edema BLE's Objective Objective Clinical Data: Abnormal lab results 12/01/18 12/01/18 12/01/18 Range/Units 19:15 19:15 19:15 WBC (4.4-10.8) k/cumm RBC (4.50-6.00) m/cumm Hgb (13.5-17.5) g/dL Hct (40.0-50.0) % MCHC (32.0-36.0) g/dL Absolute Lymphocytes (1.2-3.4) k/cumm Absolute Monocytes (0.11-0.7) k/cumm PT 11.5 H (9.3-11.0) sec pO2 (83-108) mmHg O2 Saturation (94-98) % ABG HCO3 (22-28) mmol/L ABG Base Excess (-3-3) mmol/L VBG pCO2 55 H (34-47) mm/Hg VBG pO2 23 L (28-44) mm/Hg VBG HCO3 34 H (22-28) mmol/L VBG Total CO2 31 H (22-29) mmol/L VBG O2 Saturation 37 L (70-80) % VBG Base Excess 8.9 H (-3-3) mmol/L Sodium 131 L (136-145) mmol/L Chloride 93 L (98-107) mmol/L Creatinine (0.70-1.30) mg/dL Glucose 109 H (70-100) mg/dL Albumin 2.5 L (3.4-5.0) g/dL 12/02/18 12/02/18 12/02/18 Range/Units 06:55 06:55 12:00 WBC 2.23 L D (4.4-10.8) k/cumm RBC 3.95 L (4.50-6.00) m/cumm Hgb 11.3 L (13.5-17.5) g/dL Hct 35.7 L (40.0-50.0) % MCHC 31.7 L (32.0-36.0) g/dL Absolute Lymphocytes 0.34 L (1.2-3.4) k/cumm Absolute Monocytes 0.09 L (0.11-0.7) k/cumm PT (9.3-11.0) sec pO2 41 L (83-108) mmHg O2 Saturation 78 L (94-98) % ABG HCO3 30 H (22-28) mmol/L ABG Base Excess 5.6 H (-3-3) mmol/L VBG pCO2 (34-47) mm/Hg VBG pO2 (28-44) mm/Hg VBG HCO3 (22-28) mmol/L VBG Total CO2 (22-29) mmol/L VBG O2 Saturation (70-80) % VBG Base Excess (-3-3) mmol/L Sodium 135 L (136-145) mmol/L Chloride (98-107) mmol/L Creatinine 0.63 L (0.70-1.30) mg/dL Glucose 209 H D (70-100) mg/dL Albumin (3.4-5.0) g/dL Vital Signs Temperature 36.6 C 12/02/18 16:25 Temperature Source Tympanic 12/02/18 16:25 Pulse 20 L 12/02/18 16:25 Pulse Rhythm Regular 12/02/18 16:19 Pulse 104 H 12/01/18 21:00 Respiratory Rate 20 12/02/18 16:25 Respiratory Effort Non-Labored 12/02/18 16:19 Respiratory Depth Shallow 12/02/18 16:19 Respiratory Pattern Normal 12/02/18 16:19 Blood Pressure 120/77 12/02/18 16:25 Blood Pressure Mean 94 12/01/18 20:45 Pulse Oximetry 92 L 12/02/18 16:25 Oxygen Delivery Method Nasal Cannula 12/02/18 16:25 Oxygen Flow Rate 3 12/02/18 16:25 Fraction of Inspired Oxygen (FIO2) 32 12/01/18 19:56 Pain Level 7 12/02/18 13:22 Comment 12/02/18 08:00 Intake & Output 12/01/18 12/02/18 12/02/18 23:59 11:59 23:59 Intake Total 1000 / 1000 1340 / 2030 690 / 2030 Output Total 200 / 200 1275 / 2325 1050 / 2325 Balance 800 / 800 65 / -295 -360 / -295 Weight 73.2 kg 72.5 kg Intake: IV 1000 / 1000 860 / 1070 210 / 1070 Oral 480 / 960 480 / 960 Output: Urine 200 / 200 1275 / 2325 1050 / 2325 Other: Urine Color Yellow Light Laurie Pale Yellow Urine Appearance Clear Clear Clear Urine Odor Normal Strong Normal Comment Patient on multiple antibiotics. Patient on multiple antibiotics. Voiding Methods Urinal Urinal Urinal Laboratory Results WBC 2.23 k/cumm (4.4-10.8) L D 12/02/18 06:55 RBC 3.95 m/cumm (4.50-6.00) L 12/02/18 06:55 Hgb 11.3 g/dL (13.5-17.5) L 12/02/18 06:55 Hct 35.7 % (40.0-50.0) L 12/02/18 06:55 MCV 90.4 fL (80-95) 12/02/18 06:55 MCH 28.6 pg (27.0-33.0) 12/02/18 06:55 MCHC 31.7 g/dL (32.0-36.0) L 12/02/18 06:55 RDW 14.1 % (11.8-14.1) 12/02/18 06:55 Plt Count 212 x1000/uL (130-400) 12/02/18 06:55 MPV 10.5 fL (8.0-11.0) 12/02/18 06:55 Immature Gran % 0.4 12/02/18 06:55 Neutrophils % 80.4 12/02/18 06:55 Lymphocytes % 15.2 12/02/18 06:55 Monocytes % 4.0 12/02/18 06:55 Eosinophils % 0.0 12/02/18 06:55 Basophils % 0.0 12/02/18 06:55 Absolute Neutrophils 1.79 k/cumm (1.2-6.7) 12/02/18 06:55 Absolute Lymphocytes 0.34 k/cumm (1.2-3.4) L 12/02/18 06:55 Absolute Monocytes 0.09 k/cumm (0.11-0.7) L 12/02/18 06:55 Absolute Eosinophils 0.00 k/cumm (0.0-0.7) 12/02/18 06:55 Absolute Basophils 0.00 k/cumm (0.0-0.2) 12/02/18 06:55 PT 11.5 sec (9.3-11.0) H 12/01/18 19:15 INR 1.1 (0.9-1.1) 12/01/18 19:15 APTT 28.3 sec (21.0-31.4) 12/01/18 19:15 Sample Site Right radial 12/02/18 12:00 pCO2 45 mmHg (34-47) 12/02/18 12:00 pO2 41 mmHg (83-108) L 12/02/18 12:00 O2 Saturation 78 % (94-98) L 12/02/18 12:00 ABG pH 7.43 (7.35-7.45) 12/02/18 12:00 ABG HCO3 30 mmol/L (22-28) H 12/02/18 12:00 ABG Total CO2 28 mmol/L (22-29) 12/02/18 12:00 ABG Base Excess 5.6 mmol/L (-3-3) H 12/02/18 12:00 VBG pH 7.40 (7.32-7.43) 12/01/18 19:15 VBG pCO2 55 mm/Hg (34-47) H 12/01/18 19:15 VBG pO2 23 mm/Hg (28-44) L 12/01/18 19:15 VBG HCO3 34 mmol/L (22-28) H 12/01/18 19:15 VBG Total CO2 31 mmol/L (22-29) H 12/01/18 19:15 VBG O2 Saturation 37 % (70-80) L 12/01/18 19:15 VBG Base Excess 8.9 mmol/L (-3-3) H 12/01/18 19:15 Oxygen Liter Flow 0 L 12/02/18 12:00 FiO2 Room air % 12/02/18 12:00 Sodium 135 mmol/L (136-145) L 12/02/18 06:55 Potassium 4.1 mmol/L (3.5-5.1) 12/02/18 06:55 Chloride 99 mmol/L (98-107) 12/02/18 06:55 Carbon Dioxide 30.0 mmol/L (21.0-32.0) 12/02/18 06:55 Anion Gap 6.0 mmol/L (3-11) 12/02/18 06:55 BUN 7 mg/dL (7-18) 12/02/18 06:55 Creatinine 0.63 mg/dL (0.70-1.30) L 12/02/18 06:55 Estimated GFR/1.73 m2 >= 60.00 (mL/min/1.73m2) 12/02/18 06:55 Glucose 209 mg/dL (70-100) H D 12/02/18 06:55 Calcium 8.6 mg/dL (8.5-10.1) 12/02/18 06:55 Magnesium 2.2 mg/dL (1.8-2.4) 12/02/18 06:55 Total Bilirubin 0.4 mg/dL (0.2-1.0) 12/01/18 19:15 AST 21 U/L (15-37) 12/01/18 19:15 ALT 14 U/L (12-78) 12/01/18 19:15 Alkaline Phosphatase 94 U/L (46-116) 12/01/18 19:15 Troponin I < 0.02 ng/mL (0.00-0.06) 12/01/18 19:15 Total Protein 7.6 g/dL (6.4-8.2) 12/01/18 19:15 Albumin 2.5 g/dL (3.4-5.0) L 12/01/18 19:15 Procalcitonin < 0.1 ng/mL 12/01/18 22:33 CT chest with contrast: New ground-glass and consolidative opacities in both lungs suggesting acute pneumonia; resolution of right basilar pneumonia seen on previous examination of 10/07/18 is also noted.
[2018-12-02] MEDS: PIPERACILLIN/TAZO 3.375 GM in Normal Saline 50 ML IVPB (19:44)
[2018-12-02] MEDS: Normal Saline 1,000 ML 75 ML IV (21:00)
[2018-12-02] MEDS: methylPREDNISolone SUCC 125 MG VIAL 60 MG IVP (21:00)
[2018-12-03] VITALS (15 sets, daily range): BP systolic 96–133; BP diastolic 62–83; PULSE 88–110; RESP 1–32; TEMP 36.2–36.6; O2SAT 88–98
[2018-12-03] MEDS: PIPERACILLIN/TAZO 3.375 GM in Normal Saline 50 ML IVPB ×4 (00:42→17:09)
[2018-12-03] MEDS: methylPREDNISolone SUCC 125 MG VIAL 60 MG IVP ×3 (04:09→21:33)
[2018-12-03] MEDS: Albuterol/Ipratropium 3 ML UPD VIAL UPD ×3 (06:01→18:25)
[2018-12-03 06:22] LABS: Abs Immature Grans 0.02 k/cumm (0.0-0.09); Absolute Lymphocyte Count 0.39 k/cumm (1.2-3.4); Absolute Monocyte Count 0.33 k/cumm (0.11-0.7); Absolute Neutrophil Count 10.99 k/cumm (1.2-6.7); HCT 35.6 % (40.0-50.0); HGB 11.1 g/dL (13.5-17.5); Immature Grans % 0.2; Lymphocytes % 3.3; Mean Corp. HGB Concentration 31.2 g/dL (32.0-36.0); Mean Corpuscular Hemoglobin 28.2 pg (27.0-33.0); Mean Corpuscular Volume 90.6 fL (80-95); Mean Platelet Volume 10.4 fL (8.0-11.0); Monocytes % 2.8; Neutrophils % 93.7; Platelet Count 249 x1000/uL (130-400); RBC 3.93 m/cumm (4.50-6.00); RBC Distribution Width 14.3 % (11.8-14.1); White Blood Cell Count 11.73 k/cumm (4.4-10.8)
[2018-12-03 06:25] LABS: Anion Gap 6.1 mmol/L (3-11); BUN 8 mg/dL (7-18); CO2 28.9 mmol/L (21.0-32.0); CREATININE 0.64 mg/dL (0.70-1.30); Calcium 8.5 mg/dL (8.5-10.1); Chloride 103 mmol/L (98-107); Glucose 144 mg/dL (70-100); Magnesium 2.1 mg/dL (1.8-2.4); Potassium 4.2 mmol/L (3.5-5.1); Sodium 138 mmol/L (136-145)
[2018-12-03] MEDS: Mometasone 220 MCG 14 DOSE INHALER 2 PUFF IH ×2 (08:06→19:26)
[2018-12-03] MEDS: guaiFENesin 600 MG TABCR 1200 MG PO ×2 (08:31→19:27)
[2018-12-03] MEDS: Esomeprazole 20 MG CAPCR PO (08:31)
[2018-12-03] MEDS: Cyclobenzaprine 10 MG TAB PO ×3 (08:31→19:27)
[2018-12-03] MEDS: Methadone Liquid 10 MG/ML 95 MG PO (09:04)
--- NOTE | 2018-12-03 10:40 | PT.INIE ---
Date of service: 12/03/18 Time of Service: 09:00 PT Notes Inpatient Physical Therapy Evaluation Date: December 03, 2018 Referring Doctor: Consuelo Kapoor MD PT Orders: PT CONSULT: PT Eval and Treat for Strenghtening PrecautionsStandard, Fall Patient Profile/Admitting Diagnosis: Patient is a 68-year-old male referred for inpatient PT evaluation secondary to exacerbation of healthcare associated pneumonia. Patient had spent some time at an [facility] from October 05- with COPD and pneumonia. Patient has a long-standing history of limitations of bilateral shoulder motion due to childhood trauma as well as left shoulder injury when he fell at his daughter's house implant in [facility] requiring surgery. Patient indicates that he has been part of BAA RT program at [facility]. 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 PMHX: Medical History Anxiety (Chronic) Back pain (Chronic) COPD (chronic obstructive pulmonary disease) (Chronic) Depression (Chronic) GERD (gastroesophageal reflux disease) (Chronic) Insomnia (Chronic) Macrocytosis (Chronic) Numbness and tingling in right hand (Chronic) Right knee DJD (Chronic) Tobacco abuse (Chronic) Surgical History History of right knee surgery (Inactive) History of shoulder surgery (Inactive) Hx of tonsillectomy (Inactive) Previous back surgery (Inactive) Social History/Home Situation: Patient lives with his son's ex-'s house in [facility] where he plans to go home to upon discharge from this hospital. He states that it is a single floor ranch-style home with 3 steps to enter rail on the right side going up. He states that he has stopped using a cane because it has made his hands and fingers numb although today with the use of the walker he does not report any sensory changes in both hands and fingers. Patient states he smokes 2-3 cigarettes/day and has stopped drinking for the past 20 years. He is able to make his own meals and has been ambulatory without any assistive device at home he states he has 15 feet to walk to the bathroom and 30 feet from the inside of the house to get into the car door outside. Furthermore, he states that he was doing some grocery shopping and managing well with it as long as somebody drives him Equipment Owned/DME: Has a walker and cane. He also has a wheelchair. He states though that he does not make use of any of them. Subjective: Patient seen resting lying in bed and is agreeable to PT consult. Patient indicates has been having difficulty with his O2 saturation levels. He was originally on 3 L and nursing up to 6 L. Admits that he dropped down to in the low 70s for O2 saturation percentage. Objective: General Observation: Patient lying in bed. PICC line in the left UE. No swelling to BLE observed. Bilateral compression garments. Mental Status: Alert and oriented x3 Pain: Denies. 0/10. ROM: Right Upper Extremity: Shoulder flexion 30 degrees. Shoulder abduction 30 degrees. Left Upper Extremity: Shoulder flexion 30 degrees. Shoulder abduction 30 degrees. Right Lower Extremity: WFL Left Lower Extremity: WFL Strength: Right Upper Extremity: Shoulder flexors 3-/5. Shoulder abductors 3-/5. Elbow flexors 3+/5. Elbow extensors 3+/5. Product Transfer Pumper weak but functional. Left Upper Extremity: Shoulder flexors 3-/5. Shoulder abductors 3-/5. Elbow flexors 3+/5. Elbow extensors 3+/5. Product Transfer Pumper weak but functional. Right Lower Extremity: Hip flexors 4-/5. Knee extensors 3+/5. Knee flexors 4-/5. Ankle dorsiflexors/plantar flexors 4+/5 Left Lower Extremity: Hip flexors 4-/5. Knee extensors 3+/5. Knee flexors 4-/5. Ankle dorsiflexors/plantar flexors 4+/5 Sensation: Intact as to pain and pressure to distal B LE. Decreased sensation to light touch throughout bilateral hands. Complaining of paresthesias symptoms throughout bilateral hands. Bed Mobility/Transfers: Rolling independent Supine to sit independent Sit to supine independent Sit to stand supervision Stand to sit supervision Bed to chair supervision Chair to bed supervision Gait: Patient was able to tolerate level surface ambulation using a front-wheeled walker with standby assist provided by this therapist for 10 feet x2 with a total of 4 turns. O2 saturation at start was 84% and decreased to 77%. Patient sat back down and was instructed in pursed lip diaphragmatic breathing and recovered to 85% O2 saturation. This is on 6 L of nasal cannula O2. Kelvin dyspnea scale is at 5/10 (moderate breathlessnes) after activity. Following ambulation patient returned to sitting bedside. Nursing was notified. At completion of initial evaluation his O2 saturation increased to 89%. Balance: Static Sitting: Normal Dynamic Sitting: Normal Static Standing: Fair Dynamic Standing: Fair Special Tests: Mobility Limitations Standardized Measure [facility] AM-PAC 6 clicks Basic Mobility Inpatient Short Form: Raw Score: 20 CMS Score: 36% deficit Informed Consent/Education: Patient instructed in purpose of PT consult and plan of care. Assessment: Patient is a 68-year-old male referred to physical therapy services with the diagnosis of community-acquired pneumonia and COPD exacerbation. Patient presents with clinical signs and symptoms consistent with medical status, as demonstrated by the following impairment level findings: 1. Decreased strength to B LE and B shoulder major muscle groups 2. Impaired balance 3. Impaired activity tolerance 4. Limitation of joint range of motion in bilateral glenohumeral joints Impairments are contributing to the following functional limitations: 1. Increased dependence with transfers 2. Inability to safely ambulate without assistive device and physical assistance 3. Increase completion time for mobility ADL performance 4. Increased fall risk 5. Inability to negotiate steps alone safely Patient is assessed as a Moderate 76855 complexity based on the following: History: Patient is a 68-year-old male with diagnosis of community-acquired pneumonia and COPD exacerbation also negatively impacted by comorbidities and past medical history as listed above Examination: Underlying impairments and functional limitations as noted above Presentation: Evolving Decision Makin moderate complexity Goals: Goals X1 week 1. Supine-Sit independent 2. Sit-Supine independent 3. Sit-Stand independent 4. Stand-Sit independent 5. Bed-Chair independent 6. Chair-Bed independent 7. Gait on level surface ambulation with no AD for at least 300 feet without report of pain nor dyspnea 8. Stairs independent while holding onto bilateral rails for at least 5 steps without report of pain nor dyspnea 9. Independent with home exercise program 10. Balance good for static and dynamic standing Plan of Care/Treatment Plan: 1-2x/day, 7 days/week x 1 week. Plan of care has been reviewed with the HYDRAULIC CONTROLS TECHNICIAN providing the service under Physical Therapy direction. Initiate Physical Therapy intervention for strengthening, bed mobility, transfers, gait, stairs, balance training, use of assistive device. Monitor O2 saturation percentage with activity. DISCHARGE RECOMMENDATIONS: Patient will benefit from short-term home health physical therapy services in order to facilitate a smooth transition to home, evaluate home safety, reduce fall risk, and education/training for home health exercise program/functional maintenance program. TREATMENT CODE/TIME: Initial evaluation 9:00-9:30 direct one on one care. Ti Gutierrez PT, DPT Disclaimer: This note was created using [employer] voice recognition software. It was reviewed for major content. However, there may be multiple small discrepancies and errors due to the voice recognition aspects of the software.
--- NOTE | 2018-12-03 10:43 | IN_ITS ---
Date of service: 12/03/18 Time of Service: 09:00 PT Notes Inpatient Physical Therapy Evaluation Date: December 03, 2018 Referring Doctor: Consuelo Kapoor MD PT Orders: PT CONSULT: PT Eval and Treat for Strenghtening PrecautionsStandard, Fall Patient Profile/Admitting Diagnosis: Patient is a 68-year-old male referred for inpatient PT evaluation secondary to exacerbation of healthcare associated pneumonia. Patient had spent some time at an [facility] from October 05- with COPD and pneumonia. Patient has a long-standing history of limitations of bilateral shoulder motion due to childhood trauma as well as left shoulder injury when he fell at his daughter's house implant in [facility] requiring surgery. Patient indicates that he has been part of [facility] RT program at [facility]. 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 PMHX: Medical History Anxiety (Chronic) Back pain (Chronic) COPD (chronic obstructive pulmonary disease) (Chronic) Depression (Chronic) GERD (gastroesophageal reflux disease) (Chronic) Insomnia (Chronic) Macrocytosis (Chronic) Numbness and tingling in right hand (Chronic) Right knee DJD (Chronic) Tobacco abuse (Chronic) Surgical History History of right knee surgery (Inactive) History of shoulder surgery (Inactive) Hx of tonsillectomy (Inactive) Previous back surgery (Inactive) Social History/Home Situation: Patient lives with his son's ex-'s house in [facility] where he plans to go home to upon discharge from this hospital. He states that it is a single floor ranch-style home with 3 steps to enter rail on the right side going up. He states that he has stopped using a cane because it has made his hands and fingers numb although today with the use of the walker he does not report any sensory changes in both hands and fingers. Patient states he smokes 2-3 cigarettes/day and has stopped drinking for the past 20 years. He is able to make his own meals and has been ambulatory without any assistive device at home he states he has 15 feet to walk to the bathroom and 30 feet from the inside of the house to get into the car door outside. Furthermore, he states that he was doing some grocery shopping and managing well with it as long as somebody drives him Equipment Owned/DME: Has a walker and cane. He also has a wheelchair. He states though that he does not make use of any of them. Subjective: Patient seen resting lying in bed and is agreeable to PT consult. Patient indicates has been having difficulty with his O2 saturation levels. He was originally on 3 L and nursing up to 6 L. Admits that he dropped down to in the low 70s for O2 saturation percentage. Objective: General Observation: Patient lying in bed. PICC line in the left UE. No swelling to BLE observed. Bilateral compression garments. Mental Status: Alert and oriented x3 Pain: Denies. 0/10. ROM: Right Upper Extremity: Shoulder flexion 30 degrees. Shoulder abduction 30 degrees. Left Upper Extremity: Shoulder flexion 30 degrees. Shoulder abduction 30 degrees. Right Lower Extremity: WFL Left Lower Extremity: WFL Strength: Right Upper Extremity: Shoulder flexors 3-/5. Shoulder abductors 3-/5. Elbow flexors 3+/5. Elbow extensors 3+/5. Public Health Epidemiologist weak but functional. Left Upper Extremity: Shoulder flexors 3-/5. Shoulder abductors 3-/5. Elbow flexors 3+/5. Elbow extensors 3+/5. Public Health Epidemiologist weak but functional. Right Lower Extremity: Hip flexors 4-/5. Knee extensors 3+/5. Knee flexors 4- /5. Ankle dorsiflexors/plantar flexors 4+/5 Left Lower Extremity: Hip flexors 4-/5. Knee extensors 3+/5. Knee flexors 4- /5. Ankle dorsiflexors/plantar flexors 4+/5 Sensation: Intact as to pain and pressure to distal B LE. Decreased sensation to light touch throughout bilateral hands. Complaining of paresthesias symptoms throughout bilateral hands. Bed Mobility/Transfers: Rolling independent Supine to sit independent Sit to supine independent Sit to stand supervision Stand to sit supervision Bed to chair supervision Chair to bed supervision Gait: Patient was able to tolerate level surface ambulation using a front- wheeled walker with standby assist provided by this therapist for 10 feet x2 with a total of 4 turns. O2 saturation at start was 84% and decreased to 77%. Patient sat back down and was instructed in pursed lip diaphragmatic breathing and recovered to 85% O2 saturation. This is on 6 L of nasal cannula O2. Kelvin dyspnea scale is at 5/10 (moderate breathlessnes) after activity. Following ambulation patient returned to sitting bedside. Nursing was notified. At completion of initial evaluation his O2 saturation increased to 89%. Balance: Static Sitting: Normal Dynamic Sitting: Normal Static Standing: Fair Dynamic Standing: Fair Special Tests: Mobility Limitations Standardized Measure [facility] AM-PAC 6 clicks Basic Mobility Inpatient Short Form: Raw Score: 20 CMS Score: 36% deficit Informed Consent/Education: Patient instructed in purpose of PT consult and plan of care. Assessment: Patient is a 68-year-old male referred to physical therapy services with the diagnosis of community-acquired pneumonia and COPD exacerbation. Patient presents with clinical signs and symptoms consistent with medical status, as demonstrated by the following impairment level findings: 1. Decreased strength to B LE and B shoulder major muscle groups 2. Impaired balance 3. Impaired activity tolerance 4. Limitation of joint range of motion in bilateral glenohumeral joints Impairments are contributing to the following functional limitations: 1. Increased dependence with transfers 2. Inability to safely ambulate without assistive device and physical assistance 3. Increase completion time for mobility ADL performance 4. Increased fall risk 5. Inability to negotiate steps alone safely Patient is assessed as a Moderate 18691 complexity based on the following: History: Patient is a 68-year-old male with diagnosis of community-acquired pneumonia and COPD exacerbation also negatively impacted by comorbidities and past medical history as listed above Examination: Underlying impairments and functional limitations as noted above Presentation: Evolving Decision Makin moderate complexity Goals: Goals X1 week 1. Supine-Sit independent 2. Sit-Supine independent 3. Sit-Stand independent 4. Stand-Sit independent 5. Bed-Chair independent 6. Chair-Bed independent 7. Gait on level surface ambulation with no AD for at least 300 feet without report of pain nor dyspnea 8. Stairs independent while holding onto bilateral rails for at least 5 steps without report of pain nor dyspnea 9. Independent with home exercise program 10. Balance good for static and dynamic standing Plan of Care/Treatment Plan: 1-2x/day, 7 days/week x 1 week. Plan of care has been reviewed with the CHILD CAREGIVER providing the service under Physical Therapy direction. Initiate Physical Therapy intervention for strengthening, bed mobility, transfers, gait, stairs, balance training, use of assistive device. Monitor O2 saturation percentage with activity. DISCHARGE RECOMMENDATIONS: Patient will benefit from short-term home health physical therapy services in order to facilitate a smooth transition to home, evaluate home safety, reduce fall risk, and education/training for home health exercise program/functional maintenance program. TREATMENT CODE/TIME: Initial evaluation 9:00-9:30 direct one on one care. Ti Gutierrez PT, DPT Disclaimer: This note was created using [employer] voice recognition software. It was reviewed for major content. However, there may be multiple small discrepancies and errors due to the voice recognition aspects of the software.
[2018-12-03] MEDS: Gabapentin 300 MG CAP PO (11:57)
[2018-12-03] MEDS: Normal Saline Flush 10 ML SYR IVP ×2 (12:10→19:30)
--- NOTE | 2018-12-03 14:27 | W.PM.PROGNOT ---
Date of Service Date of service: 12/03/18 Time of Service: 14:28 Assessment and Plan (1) Acute respiratory failure with hypoxia: Current visit: Yes Status: Acute Evidence of infiltrates by CT in patient with somewhat recent hospitalization, currently on broad spectrum antibiotics with Vancomycin and Pip-Tazo day #2 - coverage for HCAP. Interestingly patient had a negative Procalcitonin level at time of admission - potential for false negative with early obtaining of levels, but patient reportedly had 2 weeks of worsening dyspnea prior to presentation. He also underwent speech evaluation which was low risk for aspiration. However, he does have a history of chronic pain and takes a large amount of daily Methadone, making aspiration a potential etiology in the setting of drug-induced sedation. In fact, noted to be somnolent on exam yesterday per review of prior examination and notes. Will ask nursing to monitor patient closely around the time of his medication administration. For now continue antibiotics and monitor. If patient did aspirate potential for an aspiration pneumonitis without bacterial infection also exists. Continue to monitor sputum and Blood Cultures, currently unrevealing. Repeat Procalcitonin in the morning, and continue treatment of underlying COPD with steroids and nebs. (2) Chronic pain: Current visit: No Status: Chronic Currently on Methadone, Cyclobenzaprine, and Gabapentin. (3) GERD (gastroesophageal reflux disease): Current visit: No Status: Chronic Continue PPI therapy. (4) DVT prophylaxis: Current visit: No Status: Acute SC Enoxaparin. Subjective Interval history since last seen: 68-year-old man with a past medical history significant for COPD, admitted from [facility] Emergency Department with a diagnosis of COPD Exacerbation and Pneumonia. Mr. Tripathi has a past medical history significant for COPD not on home O2, daily Tobacco use, GERD, Diastolic Dysfunction, and Chronic Pain on Methadone. He was hospitalized in September of this year and treated for CAP. He presented to the ED with complaints of increasing dyspnea over a course of 2 weeks, with a change in his chronic cough. Upon presentation the patient was found to be tachypneic, tachycardic, and hypoxic with an Oxygen Saturation in the 70's on room air. Initial CXR showed a possible right sided PNA, with subsequent CT showing opacities in both lungs (RUL, RLL, and VANDANA), with resolution of prior RLL process. Of note, the patient's Procalcitonin level returned undetectable at <0.1. The patient was referred for admission for further evaluation and treatment. This morning Mr. Tripathi reports continued improvement in his symptoms, but is still requiring oxygen therapy. No overnight events reported. Remains afebrile. Exam Narrative Exam Narrative: General: Patient appears comfortable, AAOX3, NAD Neck: Supple CV: Regular, nontachycardic, S1S2, No rubs, murmurs, or gallops. Pulmonary: Mildly diminished but Clear to auscultation bilaterally, no crackles, wheezing, or rhonchi. Good air entry noted. Abdomen: + Bowel Sounds, soft, nontender, nondistended Vascular: Trace lower extremity edema Psych: Normal mood and affect. Objective Objective Clinical Data: Abnormal lab results 12/03/18 12/03/18 Range/Units 06:07 06:07 WBC 11.73 H D (4.4-10.8) k/cumm RBC 3.93 L (4.50-6.00) m/cumm Hgb 11.1 L (13.5-17.5) g/dL Hct 35.6 L (40.0-50.0) % MCHC 31.2 L (32.0-36.0) g/dL RDW 14.3 H (11.8-14.1) % Absolute Neutrophils 10.99 H (1.2-6.7) k/cumm Absolute Lymphocytes 0.39 L (1.2-3.4) k/cumm Creatinine 0.64 L (0.70-1.30) mg/dL Glucose 144 H (70-100) mg/dL Vital Signs Temperature 36.5 C 12/03/18 11:25 Temperature Source Tympanic 12/03/18 11:25 Pulse 110 H 12/03/18 13:00 Pulse Rhythm Regular 12/03/18 08:24 Pulse 104 H 12/01/18 21:00 Respiratory Rate 32 H 12/03/18 13:00 Respiratory Effort Incrsd Work of Breathing 12/03/18 08:24 Respiratory Depth Normal 12/03/18 08:24 Respiratory Pattern Normal 12/03/18 08:24 Blood Pressure 133/80 12/03/18 13:00 Blood Pressure Mean 94 12/01/18 20:45 Pulse Oximetry 93 L 12/03/18 13:00 Oxygen Delivery Method Nasal Cannula 12/03/18 13:00 Oxygen Flow Rate 6 12/03/18 13:00 Fraction of Inspired Oxygen (FIO2) 32 12/01/18 19:56 Pain Level 7 12/03/18 11:25 Comment 12/03/18 08:55 Intake & Output 12/02/18 12/03/18 12/03/18 23:59 11:59 23:59 Intake Total 990 / 2330 1450 / 1750 300 / 1750 Output Total 1475 / 2750 750 / 1000 250 / 1000 Balance -485 / -420 700 / 750 50 / 750 Weight 77.734 kg Intake: IV 510 / 1370 600 / 660 60 / 660 Oral 480 / 960 850 / 1090 240 / 1090 Output: Urine 1475 / 2750 750 / 1000 250 / 1000 Other: Urine Color Light Laurie Yellow Pale Yellow Urine Appearance Clear Clear Clear Urine Odor None None Normal Comment Patient on multiple antibiotics. Voiding Methods Urinal Urinal Urinal Laboratory Results WBC 11.73 k/cumm (4.4-10.8) H D 12/03/18 06:07 RBC 3.93 m/cumm (4.50-6.00) L 12/03/18 06:07 Hgb 11.1 g/dL (13.5-17.5) L 12/03/18 06:07 Hct 35.6 % (40.0-50.0) L 12/03/18 06:07 MCV 90.6 fL (80-95) 12/03/18 06:07 MCH 28.2 pg (27.0-33.0) 12/03/18 06:07 MCHC 31.2 g/dL (32.0-36.0) L 12/03/18 06:07 RDW 14.3 % (11.8-14.1) H 12/03/18 06:07 Plt Count 249 x1000/uL (130-400) 12/03/18 06:07 MPV 10.4 fL (8.0-11.0) 12/03/18 06:07 Immature Gran % 0.2 12/03/18 06:07 Neutrophils % 93.7 12/03/18 06:07 Lymphocytes % 3.3 12/03/18 06:07 Monocytes % 2.8 12/03/18 06:07 Eosinophils % 0.0 12/03/18 06:07 Basophils % 0.0 12/03/18 06:07 Absolute Neutrophils 10.99 k/cumm (1.2-6.7) H 12/03/18 06:07 Absolute Lymphocytes 0.39 k/cumm (1.2-3.4) L 12/03/18 06:07 Absolute Monocytes 0.33 k/cumm (0.11-0.7) 12/03/18 06:07 Absolute Eosinophils 0.00 k/cumm (0.0-0.7) 12/03/18 06:07 Absolute Basophils 0.00 k/cumm (0.0-0.2) 12/03/18 06:07 PT 11.5 sec (9.3-11.0) H 12/01/18 19:15 INR 1.1 (0.9-1.1) 12/01/18 19:15 APTT 28.3 sec (21.0-31.4) 12/01/18 19:15 Sample Site Right radial 12/02/18 12:00 pCO2 45 mmHg (34-47) 12/02/18 12:00 pO2 41 mmHg (83-108) L 12/02/18 12:00 O2 Saturation 78 % (94-98) L 12/02/18 12:00 ABG pH 7.43 (7.35-7.45) 12/02/18 12:00 ABG HCO3 30 mmol/L (22-28) H 12/02/18 12:00 ABG Total CO2 28 mmol/L (22-29) 12/02/18 12:00 ABG Base Excess 5.6 mmol/L (-3-3) H 12/02/18 12:00 VBG pH 7.40 (7.32-7.43) 12/01/18 19:15 VBG pCO2 55 mm/Hg (34-47) H 12/01/18 19:15 VBG pO2 23 mm/Hg (28-44) L 12/01/18 19:15 VBG HCO3 34 mmol/L (22-28) H 12/01/18 19:15 VBG Total CO2 31 mmol/L (22-29) H 12/01/18 19:15 VBG O2 Saturation 37 % (70-80) L 12/01/18 19:15 VBG Base Excess 8.9 mmol/L (-3-3) H 12/01/18 19:15 Oxygen Liter Flow 0 L 12/02/18 12:00 FiO2 Room air % 12/02/18 12:00 Sodium 138 mmol/L (136-145) 12/03/18 06:07 Potassium 4.2 mmol/L (3.5-5.1) 12/03/18 06:07 Chloride 103 mmol/L (98-107) 12/03/18 06:07 Carbon Dioxide 28.9 mmol/L (21.0-32.0) 12/03/18 06:07 Anion Gap 6.1 mmol/L (3-11) 12/03/18 06:07 BUN 8 mg/dL (7-18) 12/03/18 06:07 Creatinine 0.64 mg/dL (0.70-1.30) L 12/03/18 06:07 Estimated GFR/1.73 m2 >= 60.00 (mL/min/1.73m2) 12/03/18 06:07 Glucose 144 mg/dL (70-100) H 12/03/18 06:07 Calcium 8.5 mg/dL (8.5-10.1) 12/03/18 06:07 Magnesium 2.1 mg/dL (1.8-2.4) 12/03/18 06:07 Total Bilirubin 0.4 mg/dL (0.2-1.0) 12/01/18 19:15 AST 21 U/L (15-37) 12/01/18 19:15 ALT 14 U/L (12-78) 12/01/18 19:15 Alkaline Phosphatase 94 U/L (46-116) 12/01/18 19:15 Troponin I < 0.02 ng/mL (0.00-0.06) 12/01/18 19:15 Total Protein 7.6 g/dL (6.4-8.2) 12/01/18 19:15 Albumin 2.5 g/dL (3.4-5.0) L 12/01/18 19:15 Procalcitonin < 0.1 ng/mL 12/01/18 22:33 Vancomycin Trough 19.0 ug/mL (10.0-20.0) 12/03/18 08:55
[2018-12-03] MEDS: Normal Saline 1,000 ML 75 ML IV (16:54)
--- NOTE | 2018-12-03 18:06 | PDOC.CMPRO ---
Care Management Progress Note S/O Eladio was lying in bed with eyes closed. I did not wake him. A: 68 y.o. male admitted for COPD and CAP p: Eladio will return home with a resumption of [facility] services. He will F/U with PCP and plan of care as prescribed. Daughter Zoya to transport.
[2018-12-04] VITALS (9 sets, daily range): BP systolic 127–145; BP diastolic 77–85; PULSE 80–99; RESP 1–21; TEMP 35.6–36.8; O2SAT 91–98
[2018-12-04] MEDS: PIPERACILLIN/TAZO 3.375 GM in Normal Saline 50 ML IVPB ×2 (00:15→05:45)
[2018-12-04] MEDS: Albuterol/Ipratropium 3 ML UPD VIAL UPD ×4 (00:15→18:20)
[2018-12-04] MEDS: Normal Saline 1,000 ML 75 ML IV (05:44)
[2018-12-04] MEDS: Mometasone 220 MCG 14 DOSE INHALER 2 PUFF IH ×2 (07:53→20:28)
[2018-12-04 08:22] LABS: Abs Immature Grans 0.03 k/cumm (0.0-0.09); Absolute Lymphocyte Count 0.53 k/cumm (1.2-3.4); Absolute Monocyte Count 0.42 k/cumm (0.11-0.7); HGB 11.9 g/dL (13.5-17.5); Immature Grans % 0.2; Lymphocytes % 4.3; Mean Corp. HGB Concentration 31.3 g/dL (32.0-36.0); Mean Corpuscular Hemoglobin 28.6 pg (27.0-33.0); Mean Corpuscular Volume 91.3 fL (80-95); Mean Platelet Volume 10.3 fL (8.0-11.0); Monocytes % 3.4; Neutrophils % 92.1; Platelet Count 252 x1000/uL (130-400); RBC 4.16 m/cumm (4.50-6.00); RBC Distribution Width 14.6 % (11.8-14.1); White Blood Cell Count 12.32 k/cumm (4.4-10.8)
[2018-12-04 08:26] LABS: Anion Gap 7.8 mmol/L (3-11); BUN 9 mg/dL (7-18); CO2 30.2 mmol/L (21.0-32.0); CREATININE 0.61 mg/dL (0.70-1.30); Calcium 8.5 mg/dL (8.5-10.1); Chloride 103 mmol/L (98-107); Glucose 113 mg/dL (70-100); Potassium 4.1 mmol/L (3.5-5.1); Sodium 141 mmol/L (136-145)
[2018-12-04 08:28] LABS: Absolute Neutrophil Count 11.35 k/cumm (1.2-6.7)
[2018-12-04] MEDS: Cyclobenzaprine 10 MG TAB PO ×3 (08:35→20:28)
[2018-12-04] MEDS: Esomeprazole 20 MG CAPCR PO (08:35)
[2018-12-04] MEDS: Methadone Liquid 10 MG/ML 95 MG PO (08:35)
[2018-12-04] MEDS: guaiFENesin 600 MG TABCR 1200 MG PO ×2 (08:35→20:28)
[2018-12-04 08:48] LABS: Procalcitonin < 0.1 ng/mL
[2018-12-04] MEDS: Normal Saline Flush 10 ML SYR IVP ×2 (10:07→18:11)
[2018-12-04] MEDS: methylPREDNISolone SUCC 125 MG VIAL 60 MG IVP (10:07)
--- NOTE | 2018-12-04 13:44 | W.PM.PROGNOT ---
Date of Service Date of service: 12/04/18 Time of Service: 13:44 Assessment and Plan (1) Acute respiratory failure with hypoxia: Current visit: Yes Status: Acute Evidence of infiltrates by CT in patient with somewhat recent hospitalization, Initially on broad spectrum antibiotics with Vancomycin and Pip-Tazo. Interestingly patient had a negative Procalcitonin level at time of admission - potential for false negative with early obtaining of levels, but there was reportedly 2 weeks of worsening dyspnea prior to presentation. Repeat Procalcitonin this morning also undetectable. He also underwent speech evaluation which was low risk for aspiration. However, patient does have a history of chronic pain and takes a large amount of daily Methadone, making aspiration a potential etiology in the setting of drug-induced sedation, which he admits to while on higher doses of Methadone in the past. Patient was also noted to be somnolent on initial exam per review of prior examination and notes. Will ask nursing to monitor patient closely around the time of his medication administration. If patient did aspirate potential for an aspiration pneumonitis without bacterial infection vs. non-bacterial process. Given repeat negative Procalcitonin will discontinue antibiotics, and monitor carefully. Continue to monitor sputum and Blood Cultures, currently unrevealing. Continue treatment of underlying COPD with steroids and nebs. (2) Chronic pain: Current visit: No Status: Chronic Currently on Methadone, Cyclobenzaprine, and Gabapentin. (3) GERD (gastroesophageal reflux disease): Current visit: No Status: Chronic Continue PPI therapy. (4) DVT prophylaxis: Current visit: No Status: Acute SC Enoxaparin. Subjective Interval history since last seen: 68-year-old man with a past medical history significant for COPD, admitted from [facility] Emergency Department with a diagnosis of COPD Exacerbation and Pneumonia. Mr. Tripathi has a past medical history significant for COPD not on home O2, daily Tobacco use, GERD, Diastolic Dysfunction, and Chronic Pain on Methadone. He was hospitalized in September of this year and treated for CAP. He presented to the ED with complaints of increasing dyspnea over a course of 2 weeks, with a change in his chronic cough. Upon presentation the patient was found to be tachypneic, tachycardic, and hypoxic with an Oxygen Saturation in the 70's on room air. Initial CXR showed a possible right sided PNA, with subsequent CT showing opacities in both lungs (RUL, RLL, and VANDANA), with resolution of prior RLL process. Of note, the patient's Procalcitonin level returned undetectable at <0.1. The patient was referred for admission for further evaluation and treatment. This morning Mr. Tripathi reports continued improvement in his symptoms, but essentially unchanged since yesterday, and he is still requiring oxygen therapy. No overnight events reported. Remains afebrile. Exam Narrative Exam Narrative: General: Patient appears comfortable, AAOX3, NAD Neck: Supple CV: Regular, nontachycardic, S1S2, No rubs, murmurs, or gallops. Pulmonary: Mildly diminished but Clear to auscultation bilaterally, no crackles, wheezing, or rhonchi. Good air entry noted. Abdomen: + Bowel Sounds, soft, nontender, nondistended Vascular: Trace lower extremity edema Psych: Normal mood and affect. Objective Objective Clinical Data: Abnormal lab results 12/04/18 12/04/18 Range/Units 07:50 07:50 WBC 12.32 H (4.4-10.8) k/cumm RBC 4.16 L (4.50-6.00) m/cumm Hgb 11.9 L (13.5-17.5) g/dL Hct 38.0 L (40.0-50.0) % MCHC 31.3 L (32.0-36.0) g/dL RDW 14.6 H (11.8-14.1) % Absolute Neutrophils 11.35 H (1.2-6.7) k/cumm Absolute Lymphocytes 0.53 L (1.2-3.4) k/cumm Creatinine 0.61 L (0.70-1.30) mg/dL Glucose 113 H (70-100) mg/dL Vital Signs Temperature 35.6 C L 12/04/18 11:30 Temperature Source Tympanic 12/04/18 11:30 Pulse 90 12/04/18 11:30 Pulse Rhythm Regular 12/04/18 08:59 Pulse 104 H 12/01/18 21:00 Respiratory Rate 21 12/04/18 11:30 Respiratory Effort Incrsd Work of Breathing 12/04/18 08:59 Respiratory Depth Normal 12/04/18 08:59 Respiratory Pattern Normal 12/04/18 08:59 Blood Pressure 143/84 H 12/04/18 11:30 Blood Pressure Mean 94 12/01/18 20:45 Pulse Oximetry 95 12/04/18 11:30 Oxygen Delivery Method Nasal Cannula 12/04/18 11:30 Oxygen Flow Rate 5 12/04/18 11:30 Fraction of Inspired Oxygen (FIO2) 32 12/01/18 19:56 Pain Level 8 12/04/18 08:35 Comment 12/03/18 16:03 Intake & Output 12/03/18 12/04/18 12/04/18 23:59 11:59 23:59 Intake Total 2140 / 3590 1573.75 / 1813.75 240 / 1813.75 Output Total 950 / 1700 1250 / 1250 Balance 1190 / 1890 323.75 / 563.75 240 / 563.75 Weight 79.01 kg Intake: IV 1360 / 1960 1333.75 / 1333.75 0 / 1333.75 Oral 780 / 1630 240 / 480 240 / 480 Output: Urine 950 / 1700 1250 / 1250 Other: Urine Color Light Laurie Yellow Urine Appearance Clear Clear Urine Odor None Normal Comment Voids x3. Voiding Methods Urinal Urinal Laboratory Results WBC 12.32 k/cumm (4.4-10.8) H 12/04/18 07:50 RBC 4.16 m/cumm (4.50-6.00) L 12/04/18 07:50 Hgb 11.9 g/dL (13.5-17.5) L 12/04/18 07:50 Hct 38.0 % (40.0-50.0) L 12/04/18 07:50 MCV 91.3 fL (80-95) 12/04/18 07:50 MCH 28.6 pg (27.0-33.0) 12/04/18 07:50 MCHC 31.3 g/dL (32.0-36.0) L 12/04/18 07:50 RDW 14.6 % (11.8-14.1) H 12/04/18 07:50 Plt Count 252 x1000/uL (130-400) 12/04/18 07:50 MPV 10.3 fL (8.0-11.0) 12/04/18 07:50 Immature Gran % 0.2 12/04/18 07:50 Neutrophils % 92.1 12/04/18 07:50 Lymphocytes % 4.3 12/04/18 07:50 Monocytes % 3.4 12/04/18 07:50 Eosinophils % 0.0 12/04/18 07:50 Basophils % 0.0 12/04/18 07:50 Absolute Neutrophils 11.35 k/cumm (1.2-6.7) H 12/04/18 07:50 Absolute Lymphocytes 0.53 k/cumm (1.2-3.4) L 12/04/18 07:50 Absolute Monocytes 0.42 k/cumm (0.11-0.7) 12/04/18 07:50 Absolute Eosinophils 0.00 k/cumm (0.0-0.7) 12/04/18 07:50 Absolute Basophils 0.00 k/cumm (0.0-0.2) 12/04/18 07:50 PT 11.5 sec (9.3-11.0) H 12/01/18 19:15 INR 1.1 (0.9-1.1) 12/01/18 19:15 APTT 28.3 sec (21.0-31.4) 12/01/18 19:15 Sample Site Right radial 12/02/18 12:00 pCO2 45 mmHg (34-47) 12/02/18 12:00 pO2 41 mmHg (83-108) L 12/02/18 12:00 O2 Saturation 78 % (94-98) L 12/02/18 12:00 ABG pH 7.43 (7.35-7.45) 12/02/18 12:00 ABG HCO3 30 mmol/L (22-28) H 12/02/18 12:00 ABG Total CO2 28 mmol/L (22-29) 12/02/18 12:00 ABG Base Excess 5.6 mmol/L (-3-3) H 12/02/18 12:00 VBG pH 7.40 (7.32-7.43) 12/01/18 19:15 VBG pCO2 55 mm/Hg (34-47) H 12/01/18 19:15 VBG pO2 23 mm/Hg (28-44) L 12/01/18 19:15 VBG HCO3 34 mmol/L (22-28) H 12/01/18 19:15 VBG Total CO2 31 mmol/L (22-29) H 12/01/18 19:15 VBG O2 Saturation 37 % (70-80) L 12/01/18 19:15 VBG Base Excess 8.9 mmol/L (-3-3) H 12/01/18 19:15 Oxygen Liter Flow 0 L 12/02/18 12:00 FiO2 Room air % 12/02/18 12:00 Sodium 141 mmol/L (136-145) 12/04/18 07:50 Potassium 4.1 mmol/L (3.5-5.1) 12/04/18 07:50 Chloride 103 mmol/L (98-107) 12/04/18 07:50 Carbon Dioxide 30.2 mmol/L (21.0-32.0) 12/04/18 07:50 Anion Gap 7.8 mmol/L (3-11) 12/04/18 07:50 BUN 9 mg/dL (7-18) 12/04/18 07:50 Creatinine 0.61 mg/dL (0.70-1.30) L 12/04/18 07:50 Estimated GFR/1.73 m2 >= 60.00 (mL/min/1.73m2) 12/04/18 07:50 Glucose 113 mg/dL (70-100) H 12/04/18 07:50 Calcium 8.5 mg/dL (8.5-10.1) 12/04/18 07:50 Magnesium 2.0 mg/dL (1.8-2.4) 12/04/18 07:50 Total Bilirubin 0.4 mg/dL (0.2-1.0) 12/01/18 19:15 AST 21 U/L (15-37) 12/01/18 19:15 ALT 14 U/L (12-78) 12/01/18 19:15 Alkaline Phosphatase 94 U/L (46-116) 12/01/18 19:15 Troponin I < 0.02 ng/mL (0.00-0.06) 12/01/18 19:15 Total Protein 7.6 g/dL (6.4-8.2) 12/01/18 19:15 Albumin 2.5 g/dL (3.4-5.0) L 12/01/18 19:15 Procalcitonin < 0.1 ng/mL 12/04/18 07:50 Vancomycin Trough 19.0 ug/mL (10.0-20.0) 12/03/18 08:55 M. pneumoniae Source Cancelled 12/03/18 18:29 M. pneumoniae (PCR) Cancelled 12/03/18 18:29
--- NOTE | 2018-12-04 15:52 | PDOC.CMPRO ---
Care Management Progress Note S/O Eladio was lying in bed with eyes closed. I did not wake him. A: 68 y.o. male admitted for COPD and CAP p: Eladio will return home with a resumption of [facility] services. Last dose form will need to be filled out. He will F/U with PCP and plan of care as prescribed. Daughter Zoya to transport.
[2018-12-04] MEDS: methylPREDNISolone SUCC 40 MG VIAL IVP (18:10)
--- NOTE | 2018-12-04 20:10 | PT.INTREAT ---
Date of service: 12/04/18 Time of Service: 20:10 PT Notes Inpatient Physical Therapy Treatment Note [facility] Date: 12/04/18 PRECAUTIONS:Fall, Monitor SaO2 SUBJECTIVE: Eladio reports that he has been very SOB with activity today. He reports feeling SOB even when he stands. OBJECTIVE: PAIN: Patient c/o significant R LE pain with all movement. BED MOBILITY/TRANSFERS Supine-sit: I Sit-stand: I Stand-sit: Refused Bed-Chair: Refused GAIT: Refused gait training THEREX: Patient completed a LE strengthening and stabilization program, in a supine position, as per flow sheet. Patient requires rest breaks between exercises due to SOB. ASSESSMENT: Patient tolerated session with SOB with activity. He would benefit from continued participation in PT for improved cardiovascular endurance and activity tolerance. PLAN: Continue with PT's POC TREATMENT CODE/TIME: 15 minutes; 60902
[2018-12-04] MEDS: Enoxaparin 40 MG/0.4 ML SYR SC (21:58)
[2018-12-05] VITALS (11 sets, daily range): BP systolic 110–159; BP diastolic 58–97; PULSE 3–98; RESP 2–24; TEMP 36.2–36.6; O2SAT 85–97
[2018-12-05] MEDS: methylPREDNISolone SUCC 40 MG VIAL IVP ×2 (05:16→18:42)
[2018-12-05] MEDS: Albuterol/Ipratropium 3 ML UPD VIAL UPD ×3 (05:16→18:39)
[2018-12-05] MEDS: Normal Saline Flush 10 ML SYR IVP ×2 (05:17→18:43)
[2018-12-05 08:09] LABS: Anion Gap 8.2 mmol/L (3-11); BUN 10 mg/dL (7-18); CO2 28.8 mmol/L (21.0-32.0); CREATININE 0.59 mg/dL (0.70-1.30); Chloride 101 mmol/L (98-107); Glucose 103 mg/dL (70-100); Magnesium 2.2 mg/dL (1.8-2.4); Potassium 4.2 mmol/L (3.5-5.1); Sodium 138 mmol/L (136-145)
[2018-12-05] MEDS: Methadone Liquid 10 MG/ML 95 MG PO (08:12)
[2018-12-05] MEDS: guaiFENesin 600 MG TABCR 1200 MG PO ×2 (08:13→20:18)
[2018-12-05] MEDS: Cyclobenzaprine 10 MG TAB PO ×3 (08:13→20:18)
[2018-12-05] MEDS: Esomeprazole 20 MG CAPCR PO (08:13)
[2018-12-05 08:25] LABS: Abs Immature Grans 0.02 k/cumm (0.0-0.09); Absolute Basophil Count 0.01 k/cumm (0.0-0.2); Absolute Monocyte Count 0.45 k/cumm (0.11-0.7); Absolute Neutrophil Count 9.24 k/cumm (1.2-6.7); Basophils % 0.1; HCT 42.9 % (40.0-50.0); HGB 13.4 g/dL (13.5-17.5); Immature Grans % 0.2; Lymphocytes % 4.9; Mean Corp. HGB Concentration 31.2 g/dL (32.0-36.0); Mean Corpuscular Hemoglobin 28.5 pg (27.0-33.0); Mean Corpuscular Volume 91.1 fL (80-95); Mean Platelet Volume 10.6 fL (8.0-11.0); Monocytes % 4.4; Neutrophils % 90.4; Platelet Count 212 x1000/uL (130-400); RBC 4.71 m/cumm (4.50-6.00); RBC Distribution Width 15.2 % (11.8-14.1); White Blood Cell Count 10.22 k/cumm (4.4-10.8)
--- NOTE | 2018-12-05 11:13 | PDOC.CMPRO ---
- If Service Date Differs Date of service: 12/05/18 Time of Service: 11:13 Care Management Progress Note S/O: Eladio is sitting up on the edge of his bed watching TV when this service writer visits, he is receptive to discussion. Eladio states that he did not sleep well last night, as he was woken up frequently for breathing treatments. Eladio reports that he is feeling better, and discusses returning home to [place] when he is ready. A: 68 y.o. male admitted for COPD and CAP p: Eladio will return home with a resumption of [facility] services. Last dose form will need to be filled out. He will F/U with PCP and plan of care as prescribed. Daughter Zoya to transport.
[2018-12-05] MEDS: Mometasone 220 MCG 14 DOSE INHALER 2 PUFF IH ×2 (11:16→20:24)
--- NOTE | 2018-12-05 11:25 | CMPROGNOTE_ITS ---
- If Service Date Differs Date of service: 12/05/18 Time of Service: 11:13 Care Management Progress Note S/O: Eladio is sitting up on the edge of his bed watching TV when this sports book writer visits, he is receptive to discussion. Eladio states that he did not sleep well last night, as he was woken up frequently for breathing treatments. Eladio reports that he is feeling better, and discusses returning home to [place] when he is ready. A: 68 y.o. male admitted for COPD and CAP p: Eladio will return home with a resumption of [facility] services. Last dose form will need to be filled out. He will F/U with PCP and plan of care as prescribed. Daughter Zoya to transport.
--- NOTE | 2018-12-05 12:47 | PT.INTREAT ---
Date of service: 12/05/18 Time of Service: 12:47 PT Notes Inpatient Physical Therapy Treatment Note [facility] Date: 12/04/18 PRECAUTIONS:Fall, Monitor SaO2 SUBJECTIVE: Eladio reports that he continues to be SOB with activity today. He reports feeling SOB even when he stands. OBJECTIVE: PAIN: No c/o pain BED MOBILITY/TRANSFERS Supine-sit: I Sit-stand: I Stand-sit: I Bed-Chair: I GAIT: Assistive Device: FWW Assist: SBA Distance: 20' x2 Deviation: Increased SOB, seated rest x1 THEREX: Patient completed timed marching in place, 2x30 seconds, requiring seated rest between due to SOB. ASSESSMENT: Patient tolerated session with SOB with activity, although was able to tolerate gait training. He would benefit from continued participation in PT for improved cardiovascular endurance and activity tolerance. PLAN: Continue with PT's POC TREATMENT CODE/TIME: 30 minutes; [id number] x2
--- NOTE | 2018-12-05 13:44 | W.PM.PROGNOT ---
Date of Service Date of service: 12/05/18 Time of Service: 13:44 Assessment and Plan (1) Acute respiratory failure with hypoxia: Current visit: Yes Status: Acute Evidence of infiltrates by CT in patient with somewhat recent hospitalization, Initially on broad spectrum antibiotics with Vancomycin and Pip-Tazo. The patient had a negative Procalcitonin level at time of admission - Level was repeated Procalcitonin 3 days into hospitalization and remained undetectable. Also underwent speech evaluation which was low risk for aspiration. He has been afebrile throughout the hospitalization, and his minimal leukocytosis was likely on the basis of steroid effect and now normalized. At this point doubt despite his CT findings suspect that changes are likely not in the setting of a a bacterial infection. Mr. Tripathi does have a history of chronic pain and takes a large amount of daily Methadone, making aspiration a potential etiology in the setting of drug-induced sedation, which he admits to while on higher doses of Methadone in the past. Patient was also noted to be somnolent on initial exam per review of prior examination and notes. Potential for aspiration pneumonitis without infection. Also consider inflammatory etiology. Antibiotics discontinued on 12/04 - plan for continuation of steroids and nebs, with continued close monitoring. Consider discussion with Pulm if needed. Continue to monitor sputum and Blood Cultures, currently unrevealing. (2) Chronic pain: Current visit: No Status: Chronic Currently on Methadone, Cyclobenzaprine, and Gabapentin. (3) GERD (gastroesophageal reflux disease): Current visit: No Status: Chronic Continue PPI therapy. (4) DVT prophylaxis: Current visit: No Status: Acute SC Enoxaparin. Subjective Interval history since last seen: 68-year-old man with a past medical history significant for COPD, admitted from [facility] Emergency Department with a diagnosis of COPD Exacerbation and Pneumonia. Mr. Tripathi has a past medical history significant for COPD not on home O2, daily Tobacco use, GERD, Diastolic Dysfunction, and Chronic Pain on Methadone. He was hospitalized in September of this year and treated for CAP. He presented to the ED with complaints of increasing dyspnea over a course of 2 weeks, with a change in his chronic cough. Upon presentation the patient was found to be tachypneic, tachycardic, and hypoxic with an Oxygen Saturation in the 70's on room air. Initial CXR showed a possible right sided PNA, with subsequent CT showing opacities in both lungs (RUL, RLL, and VANDANA), with resolution of prior RLL process. Of note, the patient's Procalcitonin level returned undetectable at <0.1. The patient was referred for admission for further evaluation and treatment. This morning Mr. Tripathi reports continued improvement in his symptoms, but not yet at baseline, and he is still requiring oxygen therapy. He states that his breathing at rest is stable, but with dyspnea with minimal movement. No overnight events reported. Remains afebrile. Exam Narrative Exam Narrative: General: Patient appears comfortable, AAOX3, NAD Neck: Supple CV: Regular, nontachycardic, S1S2, No rubs, murmurs, or gallops. Pulmonary: Mildly diminished but Clear to auscultation bilaterally, no crackles, wheezing, or rhonchi. Good air entry again noted. Appears improved. Abdomen: + Bowel Sounds, soft, nontender, nondistended Vascular: Trace lower extremity edema Psych: Normal mood and affect. Objective Objective Clinical Data: Abnormal lab results 12/05/18 12/05/18 Range/Units 07:15 07:15 Hgb 13.4 L (13.5-17.5) g/dL MCHC 31.2 L (32.0-36.0) g/dL RDW 15.2 H (11.8-14.1) % Absolute Neutrophils 9.24 H (1.2-6.7) k/cumm Absolute Lymphocytes 0.50 L (1.2-3.4) k/cumm Creatinine 0.59 L (0.70-1.30) mg/dL Glucose 103 H (70-100) mg/dL Vital Signs Temperature 36.6 C 12/05/18 11:02 Temperature Source Tympanic 12/05/18 11:02 Pulse 98 H 12/05/18 12:23 Pulse Rhythm Regular 12/05/18 10:05 Pulse 104 H 12/01/18 21:00 Respiratory Rate 16 12/05/18 12:23 Respiratory Effort 12/05/18 10:05 Respiratory Depth Shallow 12/05/18 10:05 Respiratory Pattern Normal 12/05/18 10:05 Blood Pressure 110/74 12/05/18 11:02 Blood Pressure Mean 94 12/01/18 20:45 Pulse Oximetry 90 L 12/05/18 12:23 Oxygen Delivery Method Nasal Cannula 12/05/18 12:23 Oxygen Flow Rate 3 12/05/18 12:23 Fraction of Inspired Oxygen (FIO2) 32 12/01/18 19:56 Pain Level 8 12/05/18 08:12 Comment 12/05/18 11:02 Intake & Output 12/04/18 12/05/18 12/05/18 23:59 11:59 23:59 Intake Total 2060 / 3633.75 360 / 360 Output Total 1900 / 3150 1390 / 1390 Balance 160 / 483.75 -1030 / -1030 Weight 72.8 kg Intake: IV 20 1353.75 Oral 2040 / 2280 360 / 360 Output: Urine 1900 / 3150 1390 / 1390 Other: Urine Color Pale Pale Yellow Yellow Urine Appearance Clear Clear Urine Odor Normal None Comment Voiding x2 in urinal. Voiding Methods Urinal Urinal Laboratory Results WBC 10.22 k/cumm (4.4-10.8) 12/05/18 07:15 RBC 4.71 m/cumm (4.50-6.00) 12/05/18 07:15 Hgb 13.4 g/dL (13.5-17.5) L 12/05/18 07:15 Hct 42.9 % (40.0-50.0) 12/05/18 07:15 MCV 91.1 fL (80-95) 12/05/18 07:15 MCH 28.5 pg (27.0-33.0) 12/05/18 07:15 MCHC 31.2 g/dL (32.0-36.0) L 12/05/18 07:15 RDW 15.2 % (11.8-14.1) H 12/05/18 07:15 Plt Count 212 x1000/uL (130-400) 12/05/18 07:15 MPV 10.6 fL (8.0-11.0) 12/05/18 07:15 Immature Gran % 0.2 12/05/18 07:15 Neutrophils % 90.4 12/05/18 07:15 Lymphocytes % 4.9 12/05/18 07:15 Monocytes % 4.4 12/05/18 07:15 Eosinophils % 0.0 12/05/18 07:15 Basophils % 0.1 12/05/18 07:15 Absolute Neutrophils 9.24 k/cumm (1.2-6.7) H 12/05/18 07:15 Absolute Lymphocytes 0.50 k/cumm (1.2-3.4) L 12/05/18 07:15 Absolute Monocytes 0.45 k/cumm (0.11-0.7) 12/05/18 07:15 Absolute Eosinophils 0.00 k/cumm (0.0-0.7) 12/05/18 07:15 Absolute Basophils 0.01 k/cumm (0.0-0.2) 12/05/18 07:15 PT 11.5 sec (9.3-11.0) H 12/01/18 19:15 INR 1.1 (0.9-1.1) 12/01/18 19:15 APTT 28.3 sec (21.0-31.4) 12/01/18 19:15 Sample Site Right radial 12/02/18 12:00 pCO2 45 mmHg (34-47) 12/02/18 12:00 pO2 41 mmHg (83-108) L 12/02/18 12:00 O2 Saturation 78 % (94-98) L 12/02/18 12:00 ABG pH 7.43 (7.35-7.45) 12/02/18 12:00 ABG HCO3 30 mmol/L (22-28) H 12/02/18 12:00 ABG Total CO2 28 mmol/L (22-29) 12/02/18 12:00 ABG Base Excess 5.6 mmol/L (-3-3) H 12/02/18 12:00 VBG pH 7.40 (7.32-7.43) 12/01/18 19:15 VBG pCO2 55 mm/Hg (34-47) H 12/01/18 19:15 VBG pO2 23 mm/Hg (28-44) L 12/01/18 19:15 VBG HCO3 34 mmol/L (22-28) H 12/01/18 19:15 VBG Total CO2 31 mmol/L (22-29) H 12/01/18 19:15 VBG O2 Saturation 37 % (70-80) L 12/01/18 19:15 VBG Base Excess 8.9 mmol/L (-3-3) H 12/01/18 19:15 Oxygen Liter Flow 0 L 12/02/18 12:00 FiO2 Room air % 12/02/18 12:00 Sodium 138 mmol/L (136-145) 12/05/18 07:15 Potassium 4.2 mmol/L (3.5-5.1) 12/05/18 07:15 Chloride 101 mmol/L (98-107) 12/05/18 07:15 Carbon Dioxide 28.8 mmol/L (21.0-32.0) 12/05/18 07:15 Anion Gap 8.2 mmol/L (3-11) 12/05/18 07:15 BUN 10 mg/dL (7-18) 12/05/18 07:15 Creatinine 0.59 mg/dL (0.70-1.30) L 12/05/18 07:15 Estimated GFR/1.73 m2 >= 60.00 (mL/min/1.73m2) 12/05/18 07:15 Glucose 103 mg/dL (70-100) H 12/05/18 07:15 Calcium 9.0 mg/dL (8.5-10.1) 12/05/18 07:15 Magnesium 2.2 mg/dL (1.8-2.4) 12/05/18 07:15 Total Bilirubin 0.4 mg/dL (0.2-1.0) 12/01/18 19:15 AST 21 U/L (15-37) 12/01/18 19:15 ALT 14 U/L (12-78) 12/01/18 19:15 Alkaline Phosphatase 94 U/L (46-116) 12/01/18 19:15 Troponin I < 0.02 ng/mL (0.00-0.06) 12/01/18 19:15 Total Protein 7.6 g/dL (6.4-8.2) 12/01/18 19:15 Albumin 2.5 g/dL (3.4-5.0) L 12/01/18 19:15 Procalcitonin < 0.1 ng/mL 12/04/18 07:50 Vancomycin Trough 19.0 ug/mL (10.0-20.0) 12/03/18 08:55 Legionella Source (see note) 12/02/18 00:45 Legionella Reprt Status (see note) 12/02/18 00:45 Legionella Final Result (see note) 12/02/18 00:45 M. pneumoniae Source Cancelled 12/03/18 18:29 M. pneumoniae (PCR) Cancelled 12/03/18 18:29
[2018-12-05] MEDS: Enoxaparin 40 MG/0.4 ML SYR SC (20:18)
[2018-12-06] MEDS: Albuterol/Ipratropium 3 ML UPD VIAL UPD ×3 (00:19→11:54)
[2018-12-06 03:38] VITALS: RESP 18; TEMP 36.5
[2018-12-06] MEDS: methylPREDNISolone SUCC 40 MG VIAL IVP (06:17)
[2018-12-06] MEDS: Normal Saline Flush 10 ML SYR IVP (06:17)
[2018-12-06 07:39] LABS: Abs Immature Grans 0.03 k/cumm (0.0-0.09); Absolute Eosinophil Count 0.02 k/cumm (0.0-0.7); Absolute Lymphocyte Count 1.21 k/cumm (1.2-3.4); Absolute Monocyte Count 0.64 k/cumm (0.11-0.7); Absolute Neutrophil Count 8.02 k/cumm (1.2-6.7); Eosinophils % 0.2; HCT 41.6 % (40.0-50.0); HGB 12.8 g/dL (13.5-17.5); Immature Grans % 0.3; Lymphocytes % 12.2; Mean Corp. HGB Concentration 30.8 g/dL (32.0-36.0); Mean Corpuscular Hemoglobin 27.9 pg (27.0-33.0); Mean Corpuscular Volume 90.8 fL (80-95); Mean Platelet Volume 10.6 fL (8.0-11.0); Monocytes % 6.5; Neutrophils % 80.8; Platelet Count 334 x1000/uL (130-400); RBC 4.58 m/cumm (4.50-6.00); RBC Distribution Width 15.3 % (11.8-14.1); White Blood Cell Count 9.92 k/cumm (4.4-10.8)
[2018-12-06 08:01] VITALS: BP 156/88; PULSE 83; RESP 18; TEMP 36.5; O2SAT 93
[2018-12-06 08:07] LABS: Anion Gap 7.1 mmol/L (3-11); BUN 10 mg/dL (7-18); CO2 31.9 mmol/L (21.0-32.0); CREATININE 0.65 mg/dL (0.70-1.30); Chloride 100 mmol/L (98-107); Glucose 110 mg/dL (70-100); Magnesium 2.2 mg/dL (1.8-2.4); Potassium 4.1 mmol/L (3.5-5.1); Sodium 139 mmol/L (136-145)
[2018-12-06] MEDS: Esomeprazole 20 MG CAPCR PO (08:15)
[2018-12-06] MEDS: guaiFENesin 600 MG TABCR 1200 MG PO (08:15)
[2018-12-06] MEDS: Cyclobenzaprine 10 MG TAB PO ×2 (08:15→13:46)
[2018-12-06] MEDS: Methadone Liquid 10 MG/ML 95 MG PO (08:15)
[2018-12-06] MEDS: Docusate Sodium 100 MG CAP PO ×2 (08:29→13:46)
[2018-12-06] MEDS: Polyethylene Glycol 3350 17 GM PACKET PO (08:29)
[2018-12-06] MEDS: Mometasone 220 MCG 14 DOSE INHALER 2 PUFF IH (09:43)
[2018-12-06 09:45] VITALS: O2SAT 91
[2018-12-06 11:21] VITALS: PULSE 103; PULSE 80; PULSE 95; RESP 22; RESP 32; O2SAT 89; O2SAT 91; O2SAT 93
--- NOTE | 2018-12-06 12:22 | W.PM.DS.N ---
Date of service: 12/06/18 Time of Service: 12:22 DS: Diagnosis Discharge Diagnosis (1) Acute respiratory failure with hypoxia: Status: Acute (2) Chronic pain: Status: Chronic (3) GERD (gastroesophageal reflux disease): Status: Chronic Discharge Plan Disposition Patient Disposition: HOME W/HOME HEALTH SERVICE Condition: Improving Discharge Details Reason For Visit: COPD AND COMMMUNITY ACQUIRED PNEUMONIA Admit Date/Time: 12/01/18 20:52 Admit Provider: Mateusz Monge Attending Provider: Mateusz Mogne Primary Care Provider: Richelle Dowling Hospital Course Hospital Course: Chief Complaint: Dyspnea HPI: 68-year-old man with a past medical history significant for COPD, admitted from [facility] Emergency Department on 12/01/2018 with a diagnosis of COPD Exacerbation and Pneumonia. Mr. Tripathi has a past medical history significant for COPD not on home O2, daily Tobacco use, GERD, Diastolic Dysfunction, and Chronic Pain on Methadone. He was hospitalized in September of this year and treated for a RLL CAP. He presented to the ED with complaints of increasing dyspnea over a course of 2 weeks, with a change in his chronic cough. Upon presentation the patient was found to be tachypneic, tachycardic, and hypoxic with an Oxygen Saturation in the 70's on room air. Initial CXR showed a possible right sided PNA, with subsequent CT showing opacities in both lungs (RUL, RLL, and VANDANA), with resolution of prior RLL process. Of note, the patient's Procalcitonin level was undetectable at <0.1 on the day of admission. The patient was referred for admission for further evaluation and treatment. He was initially maintained on broad spectrum antibiotics, but a repeat Procalcitonin on 12/04 was again undetectable. He was afebrile, and had a minimal leukocytosis in the setting of steroids, normalized with decreased dose. Mr. Tripathi initially reported improvement in his symptoms the day after admission, but failed to make further progress. He continues to be tachypneic with increased work of breathing with minimal activity, but as of this morning is no longer requiring oxygen therapy even with ambulation. He confirms that his breathing at rest is stable, but with dyspnea with minimal movement. No overnight events reported. Remains afebrile. Hospital Course: (1) Acute respiratory failure with hypoxia: Evidence of fairly significant appearing infiltrates by CT in patient with somewhat recent hospitalization, Initially on broad spectrum antibiotics with Vancomycin and Pip-Tazo - received 3 days of antibiotic therapy prior to discontinuation. Sputum and blood cultures were unrevealing. The patient had a negative Procalcitonin level at time of admission - Level was repeated 3 days into hospitalization and remained undetectable. Also underwent speech evaluation and was deemed low risk for aspiration. He has been afebrile throughout the hospitalization, and his minimal leukocytosis was likely on the basis of steroid effect and now normalized with steroid taper. At this point, despite his CT findings suspect that changes are likely not in the setting of bacterial or even viral infection. Potential for autoimmune or inflammatory process vs. ILD/IPF. Mr. Tripathi does have a history of chronic pain and takes a large amount of daily Methadone, making aspiration a potential etiology in the setting of drug-induced sedation, which he admits to while on higher doses of Methadone in the past. Potential for aspiration pneumonitis without infection is part of the differential. Antibiotics discontinued on 12/04 - plan for continuation of steroids and nebs. Discussed case with Dr. Gallego from Pulmonology at [facility], who has kindly agreed to further evaluate the patient in clinic as an outpatient in 3 days. Will transfer images via radiology, to include both current CXR and CT, as well as CT Scan from 10/07/2018. Will also draw labs prior to patient's discharge with Anti-DS DNA, CARA, Anti-Centromere, Complement Levels with C3, C4, and CH50, and SSA-A & SS-B. He is scheduled for pre-appointment PFTs as well. (2) Chronic pain: Currently on Methadone, Cyclobenzaprine, and Gabapentin. (3) GERD (gastroesophageal reflux disease): Continue PPI therapy. (4) DVT prophylaxis: Patient was maintained on SC Enoxaparin while hospitalized. Home Meds and New Rx's Prescriptions: New prednisone 10 mg tablet 10 mg PO DAILY Qty: 45 RF: 0 Continued cyclobenzaprine 10 MG tablet 10 mg PO TID RF: 0 esomeprazole magnesium [Nexium] 20 MG capsule,delayed release(DR/EC) 20 mg PO DAILY RF: 0 methadone 10 mg/5 mL Solution 95 mg PO DAILY RF: 0 gabapentin 300 mg Capsule 300 mg PO TID PRNRF: 0 Flovent HFA 220 mcg/actuation Hfa Aerosol Inhaler 2 puff INHALATION BID RF: 0 albuterol sulfate [ProAir HFA] 90 mcg/actuation Hfa Aerosol Inhaler 2 puff INHALATION Q6H PRNRF: 0 Discharge Instructions Stand Alone Forms: Nursing Discharge Form Referrals: Richelle Dowling [Primary Care Provider] - 12/13/18 2:15 pm PULMONOLOGY,[facility] [OTHER] - 12/09/18 1:00 pm Activity:: No strenuous activity Equipment/Supplies:: Walker Diet:: As Tolerated Discharge Orders Discharge Orders: Discharge Order (Routine); Ordered 12/06/18 Ordered By: Braydon Koch Exam Narrative Exam Narrative: General: Patient appears comfortable, AAOX3, NAD Neck: Supple CV: Regular, nontachycardic, S1S2, No rubs, murmurs, or gallops. Pulmonary: Mildly diminished but Clear to auscultation bilaterally, no crackles, wheezing, or rhonchi. Good air entry again noted. Appears improved. Abdomen: + Bowel Sounds, soft, nontender, nondistended Vascular: Trace lower extremity edema Psych: Normal mood and affect. DS: Data Vitals/I&O Vitals and I&O: Vital Signs Temperature 36.5 C 12/06/18 08:01 Temperature Source Tympanic 12/06/18 08:01 Pulse 83 12/06/18 08:01 Pulse Rhythm Regular 12/05/18 21:11 Pulse 104 H 12/01/18 21:00 Respiratory Rate 18 12/06/18 08:01 Respiratory Effort Incrsd Work of Breathing 12/05/18 21:11 Respiratory Depth Normal 12/05/18 21:11 Respiratory Pattern Normal 12/05/18 21:11 Blood Pressure 156/88 H 12/06/18 08:01 Blood Pressure Mean 94 12/01/18 20:45 Pulse Oximetry 91 L 12/06/18 09:45 Oxygen Delivery Method Nasal Cannula 12/06/18 09:45 Oxygen Flow Rate 2 12/06/18 09:45 Fraction of Inspired Oxygen (FIO2) 32 12/01/18 19:56 Pain Level 8 12/06/18 08:15 Comment 12/06/18 03:38 Intake & Output 12/05/18 12/06/18 12/06/18 23:59 11:59 23:59 Intake Total 600 / 960 790 / 790 Output Total 1420 / 2810 800 / 800 Balance -820 / -1850 - Weight 72.7 kg Intake: IV Oral 600 / 960 780 / 780 Output: Urine 1420 / 2810 800 / 800 Other: Urine Color Yellow Yellow Urine Appearance Clear Clear Urine Odor Normal Voiding Methods Urinal Urinal Completed studies during hospitalization [Text1]: Exam(s) 12/01/2018 a RAD:XR portable chest AP SYMPTOM/DIAGNOSIS: SEVERE SOB PORTABLE AP CHEST: 12/01 Examination is compared to previous examination of 10/09/18. Note is again made of diaphragmatic elevation on the left. Left lung is clear. There are new patchy densities in the right lung which were not present on the previous examination. Cardiac size appears within normal limits. CONCLUSION: Findings raising the possibility of right sided pneumonia. Appropriate follow up studies requested. Exam(s) a CT:CT chest w SYMPTOMS/DIAGNOSIS: PERSISTENT RIGHT LOWER LOBE INFILTRATE, ? MASS CT CHEST: CT examination of the chest was performed with a bolus infusion of 70 cc of Omnipaque 350. There is marked motion artifact and breathing artifact on this examination. Images obtained through the upper abdomen show grossly unremarkable appearance of visualized portions of kidneys and adrenals, as well as spleen. There is a question of a nodular hepatic contour raising the possibility of cirrhosis. There is cholelithiasis. Thoracic vessels are poorly opacified. No gross thoracic aortic aneurysm or dissection. No central pulmonary embolus but lobar and segmental pulmonary arteries are not well visualized. No gross mediastinal or hilar adenopathy. Comparison with the previous CT of 10/07/18 shows apparent increased ground-glass radiodensities in right upper lobe in comparison with the previous examination. Increased ground-glass radiodensities also noted in portions of the right lower lobe. Peripheral areas of consolidation seen in right lower lobe on previous examination appear to have resolved. There are new areas of apparent consolidation in the left upper lobe. Left lower lobe remains clear. CONCLUSION: New ground-glass and consolidative opacities in both lungs suggesting acute pneumonia; resolution of right basilar pneumonia seen on previous examination of 10/07/18 is also noted. Exam(s) a US:US echocardiogram Date of study: 10/10/2018 Transthoracic Echocardiography M-mode, complete 2D, complete spectral Doppler, and color Doppler *STUDY CONCLUSIONS* Summary: 1. Left ventricle: The cavity size was normal. Systolic function was normal. The estimated ejection fraction was 60-65%. Findings consistent with diastolic dysfunction. There was no evidence of elevated ventricular filling pressure by Doppler parameters. 2. Aortic valve: There was mild stenosis. Peak velocity (S): 2m/sec. Mean gradient (S): 9.4mm Hg. VTI ratio of LVOT to aortic valve: 0.42. Valve area (VTI): 1.3cm^2. 3. Mitral valve: There was mild regurgitation. 4. Left atrium: The atrium was mildly dilated. 5. Atrial septum: No defect or patent foramen ovale was identified. 6. Pulmonary arteries: Pulmonary systolic pressure was in the range of 35mm Hg to 45mm Hg. 7. Inferior vena cava: The vessel was patent and normal in size. The respirophasic diameter changes were in the normal range (greater than or equal to 50%), consistent with normal central venous pressure. Labs on day of discharge: Labs from last 24 hours 12/06/18 12/06/18 12/06/18 12:18 12:18 12:17 WBC RBC Hgb Hct MCV MCH MCHC RDW Plt Count MPV Immature Gran % Neutrophils % Lymphocytes % Monocytes % Eosinophils % Basophils % Absolute Neutrophils Absolute Lymphocytes Absolute Monocytes Absolute Eosinophils Absolute Basophils Sodium Potassium Chloride Carbon Dioxide Anion Gap BUN Creatinine Estimated GFR/1.73 m2 Glucose Calcium Magnesium CARA Titer CARA Titer 2 CARA Titer 3 CARA Interpretation SS-A Antibody Pending Pending Double Strand DNA Ab Anti-Centromere IgG Ab Pending Complement C3 Pending Complement C4 Pending Tot Complement (CH50) Pending 12/06/18 12/06/18 12/06/18 12:16 12:15 06:45 WBC 9.92 RBC 4.58 Hgb 12.8 L Hct 41.6 MCV 90.8 MCH 27.9 MCHC 30.8 L RDW 15.3 H Plt Count 334 D MPV 10.6 Immature Gran % 0.3 Neutrophils % 80.8 Lymphocytes % 12.2 Monocytes % 6.5 Eosinophils % 0.2 Basophils % 0.0 Absolute Neutrophils 8.02 H Absolute Lymphocytes 1.21 Absolute Monocytes 0.64 Absolute Eosinophils 0.02 Absolute Basophils 0.00 Sodium Potassium Chloride Carbon Dioxide Anion Gap BUN Creatinine Estimated GFR/1.73 m2 Glucose Calcium Magnesium CARA Titer Pending CARA Titer 2 Pending CARA Titer 3 Pending CARA Interpretation Pending SS-A Antibody Double Strand DNA Ab Pending Anti-Centromere IgG Ab Complement C3 Complement C4 Tot Complement (CH50) 12/06/18 06:45 WBC RBC Hgb Hct MCV MCH MCHC RDW Plt Count MPV Immature Gran % Neutrophils % Lymphocytes % Monocytes % Eosinophils % Basophils % Absolute Neutrophils Absolute Lymphocytes Absolute Monocytes Absolute Eosinophils Absolute Basophils Sodium 139 Potassium 4.1 Chloride 100 Carbon Dioxide 31.9 Anion Gap 7.1 BUN 10 Creatinine 0.65 L Estimated GFR/1.73 m2 >= 60.00 Glucose 110 H Calcium 9.0 Magnesium 2.2 CARA Titer CARA Titer 2 CARA Titer 3 CARA Interpretation SS-A Antibody Double Strand DNA Ab Anti-Centromere IgG Ab Complement C3 Complement C4 Tot Complement (CH50) Preliminary micro results at discharge 12/01/18 21:28 Blood Culture - Preliminary Blood NO GROWTH 96 HOURS 12/01/18 21:14 Blood Culture - Preliminary Blood NO GROWTH 96 HOURS Rapid Influenza A & B Final 12/01/18-1958 RESULT NEGATIVE FOR FLU A AND B ANTIGENS. MRSA Screen (Patient) Final 12/03/18-0752 MRSA MRSA Screen Negative Sputum Culture Final 12/06/18-08 Day 1 Result ISOLATES BELOW DAY 1 GROWTH HEAVY GROWTH ISOLATE 1 APPEARANCE Yeast Day 2 Result ISOLATES BELOW DAY 2 GROWTH HEAVY GROWTH ISOLATE 1 APPEARANCE Yeast DAY 2 GROWTH RARE GROWTH ISOLATE 2 APPEARANCE Normal Art Day 3 Result ISOLATES BELOW DAY 3 GROWTH HEAVY GROWTH ISOLATE 1 APPEARANCE Yeast DAY 3 GROWTH RARE GROWTH ISOLATE 2 APPEARANCE Normal Art Organism 1 YEAST GROWTH HEAVY GROWTH Organism 2 NORMAL ART GROWTH RARE GROWTH Gram Stain Final 12/03/18-1206 GRAM STAIN Rare White Blood Cells Moderate Epithelial Cells Many Yeast Rare Gram Positive John 12/01/18 07:50 Procalcitonin <0.1 ng/ml 12/04/18 22:33 Procalcitonin <0.1 ng/mL [facility] Medical History Acute respiratory failure with hypoxia (Acute) Chronic pain (Chronic) GERD (gastroesophageal reflux disease) (Chronic) COPD with acute exacerbation (Acute) Tobacco abuse (Acute) Anxiety (Chronic) Back pain (Chronic) COPD (chronic obstructive pulmonary disease) (Chronic) Depression (Chronic) GERD (gastroesophageal reflux disease) (Chronic) Insomnia (Chronic) Macrocytosis (Chronic) Numbness and tingling in right hand (Chronic) Post laminectomy syndrome (Chronic) Right knee DJD (Chronic) Tobacco abuse (Chronic) Surgical History History of right knee surgery (Inactive) History of shoulder surgery (Inactive) Hx of tonsillectomy (Inactive) Previous back surgery (Inactive) Social History Smoking/Tobacco Use Status: Current every day Tobacco Type: cigarettes Alcohol Intake: never Drug use: Daily Substance use type: marijuana Do you feel safe at home: Yes Do you feel safe in your relationship?: Yes Additional Social history: He lives in [place], [place] but stays with someone in [facility] to maintain [place] residency so he can participate in the [employer] program.
[2018-12-06 12:30] VITALS: BP 127/72; PULSE 113; RESP 26; TEMP 37; O2SAT 86
--- NOTE | 2018-12-06 12:42 | PT.INTREAT ---
Date of service: 12/06/18 Time of Service: 12:42 PT Notes Inpatient Physical Therapy Treatment Note [facility] Date: 12/05/18 PRECAUTIONS:Fall, Monitor SaO2 SUBJECTIVE: Eladio reports that he continues to be SOB with activity today. He reports that he feels anxious about going home, as he feels safer here with medical staff close-by in the event that he needs help. OBJECTIVE: PAIN: No c/o pain BED MOBILITY/TRANSFERS Supine-sit: I Sit-stand: I Stand-sit: I Bed-Chair: I GAIT: Assistive Device: FWW Assist: SBA Distance: Approx. 100' Deviation: Increased SOB, standing rest x3 ASSESSMENT: Patient tolerated session with SOB with activity, although was able to tolerate a progression in gait distance with FWW support. He requires standing rests due to SOB. He would benefit from continued participation in PT for improved cardiovascular endurance and activity tolerance. PLAN: Continue with PT's POC TREATMENT CODE/TIME: 15 minutes; [id number]
--- NOTE | 2018-12-06 14:25 | HHF2F_ITS ---
1. Encounter Date and Reason I certify that KEENAN SOTO was seen by Braydon Koch on 12/06/18 and that I had a [id number] encounter with this patient that meets the physician face to face encounter requirements. 2. Clinical Findings Supporting Skilled Need and Homebound Status I certify that home health services are medically necessary, include either intermittent nursing home and/or physical/speech therapy, and that this patient is homebound in that absences from the home require considerable and taxing effort and are infrequent or of short duration, or are attributable to the need to receive medical care. [X] (a) Attached documentation from encounter provides clinical findings supporting skilled need and homebound status (including what assistance patient requires to leave the home). The encounter with the patient was in whole, or in part, for the following medical condition, which is the primary reason for home health care: COPD AND COMMMUNITY ACQUIRED PNEUMONIA Nursing Home: Physical Therapy/Occupational Therapy: Deconditioning, dyspnea with minimal ambulation. Leaving hospital with Walker. Also assess for home fall risk, environmental safety. Speech Therapy: Homebound: 3. Certification and Authentication I certify that I composed the above information based on my clinical judgement relating to this patient's medical condition and, if applicable, clinical findings communicated to me by the NPP or inpatient physician who performed the Home Health Referral. All further orders will be obtained through (Community Based Physician - PCP)
--- NOTE | 2018-12-06 14:32 | PDOC.CMDIS ---
- If Service Date Differs Date of service: 12/06/18 Time of Service: 14:32 LACE Index Scoring Tool - Questions: Length of Stay (in days): 4 - 6 Acuity (Admit via E.D.?): Yes Comorbidities: Chronic Pulmonary Disease E.D. Visits: 2 - Answers: Total Score: 11 Risk of Readmission: High Risk Care Management Discharge Reason for Hospitalization: HCAP, COPD with acute exacerbation of COPD Discharge Plan: Discussion with Eladio regarding ? SNF placement. He reports that he wants to return home, and would be receptive to home health services. TEDDY met with Eladio and his daughter Zoya in regards to DC plans and transportation to appointments. [facility] has been arranged for his Wednesday appointment to [facility], and for his PCP appointment, they will pick Eladio up at [facility] and return him there once appt is complete. TEDDY notified NILA Dye, that Eladio will need to contact [facility] 24 hours prior to his appointment for a time of transport. [facility] and information faxed to [phone]. PT also requested a FWW which has been distributed. Patient/Family Education Needs: Review DC instructions, any limitations, and discuss 'Ask Me Three' Services Needed at Discharge: DME Agency ([employer] - [facility]), Home Health Care Services (RN/PT/OT), Transportation ([facility] for appointments)
--- NOTE | 2018-12-06 14:42 | CMDISCH_ITS ---
- If Service Date Differs Date of service: 12/06/18 Time of Service: 14:32 LACE Index Scoring Tool - Questions: Length of Stay (in days): 4 - 6 Acuity (Admit via E.D.?): Yes Comorbidities: Chronic Pulmonary Disease E.D. Visits: 2 - Answers: Total Score: 11 Risk of Readmission: High Risk Care Management Discharge Reason for Hospitalization: HCAP, COPD with acute exacerbation of COPD Discharge Plan: Discussion with Eladio regarding ? SNF placement. He reports that he wants to return home, and would be receptive to home health services. TEDDY met with Eladio and his daughter Zoya in regards to DC plans and transportation to appointments. [facility] has been arranged for his Wednesday appointment to [facility], and for his PCP appointment, they will pick Eladio up at [facility] and return him there once appt is complete. TEDDY notified NILA Dye, that Eladio wi ll need to contact [facility] 24 hours prior to his appointment for a time of transport. Spoke with [facility] in regards to DC, and information faxed to [phone]. PT also requested a FWW which has been distributed. Patient/Family Education Needs: Review DC instructions, any limitations, and discuss 'Ask Me Three' Services Needed at Discharge: DME Agency ([facility] - [facility]), Home Health Care Services (RN/PT/OT), Transportation ([facility] for appointments)
--- NOTE | 2018-12-06 17:39 | W.INDIABCONS ---
Date of service: 12/06/18 Time of Service: 17:39 Diabetes Inpatient Consult DESCRIPTION/ASSESSMENT: Appreciate diabetes consult for Mr Tripathi who is 68 years old hospitalized with pneumonia. He has no A1c available and does not have home diabetes medications. BMI 25 Blood sugars here were elevated up to 207 secondary to 80mg Prednisolone q 8 hours initially now down to 40mg q1 12 hours. Fasting blood sugars 103-144 without medication intervention for hyperglycemia. No carbohydrate intake identified. INTERVENTION: Given that he apprears to be experience some slight hyperglycemia secondary to steroids, no intervention at this time. Will watch to see if blood sugars increase to indicate some need for ongoing self management for blood sugars. PLAN: Will follow blood sugars. Time Spent in Nutritional Counseling and Treatment: 0 minutes
[2018-12-06 23:15] LABS: Mycoplasma Pneumoniae PCR Negative; Specimen source SPUTUM
[2018-12-07 10:13] LABS: C3 Complement 129 mg/dL (81-157); C4 Complement 31 mg/dL (13-39)
[2018-12-07 15:03] LABS: ANA Interpretation Negative (NEGAT)
[2018-12-07 16:21] LABS: Complement, Total 49 U/mL (30 - 75)
[2018-12-07 18:23] LABS: Centromere Ab, IgG <0.2 U
[2018-12-08 11:03] LABS: SS-A Antibody 29.9 Units (<20)
[2018-12-08 11:04] LABS: SS-B (La) Ab, IgG 2.6 Units (<20)
[2018-12-08 11:47] LABS: dsDNA Ab, IgG <12.3 IU/mL (<30)
== END 2018-12-06 14:45 | disposition home health service (06) | DRG 189 ==
LOC: ER 21:12 → MS 21:25
PROVIDERS: Internal Medicine; Admitting Provider Internal Medicine; Emergency Provider Student in an Organized Health Care Education/Training Program; PCP Nurse Practitioner Family; Visit Provider Internal Medicine
DX: J96.01 Acute respiratory failure with hypoxia (principal); J18.1 Lobar pneumonia, unspecified organism; J44.0 Chronic obstructive pulmonary disease with (acute) lower respiratory infection; J44.1 Chronic obstructive pulmonary disease with (acute) exacerbation; F17.210 Nicotine dependence, cigarettes, uncomplicated; I51.89 Other ill-defined heart diseases; G89.29 Other chronic pain; Z79.891 Long term (current) use of opiate analgesic; R79.89 Other specified abnormal findings of blood chemistry; D64.9 Anemia, unspecified; R13.11 Dysphagia, oral phase; K21.9 Gastro-esophageal reflux disease without esophagitis; Y95 Nosocomial condition
CPT/HCPCS: 36410; 36415; 80048; 80053; 82805; 84145; 86713; 87040; 87077; 87081; 87449; 92610; 93005; 94618; 94640; 96361; 96365; 97110; 97162; 97530; 99223; 99232; 99233; 99239; 99285; J1650; 36600; 71045; 71260; 80202; 83520; 83735; 84484; 85025; 85610; 85730; 86038; 86160; 86162; 86225; 86235; 87070; 87205; 87581; 93010; J2060; J2543; J2930; J3370; J3490; J7620

== ENCOUNTER 2018-12-13 07:20 | Observation (INO) | payer MEDICARE, MEDICAID, SELFPAY ==
[2018-12-13] VITALS (59 sets, daily range): BP systolic 93–134; BP diastolic 63–104; PULSE 54–167; RESP 1–31; TEMP 34.6–37.1; O2SAT 78–100
--- NOTE | 2018-12-13 07:36 | ED.GENADUL_ITS ---
Discharge Plan Disposition Patient Disposition: [facility] INPATIENT Condition: Fair Discharge Details Chief Complaint: SOB Clinical Impression: Atrial fibrillation with rapid ventricular response, Acute exacerbation of chronic obstructive pulmonary disease (COPD), History of interstitial lung disease, Hypoxia Primary Care Provider: Richelle Dowling ED Provider: Soledad Camarillo Home Meds and New Rx's Prescriptions: No Action cyclobenzaprine 10 MG tablet 10 mg PO TID RF: 0 esomeprazole magnesium [Nexium] 20 MG capsule,delayed release(DR/EC) 20 mg PO DAILY RF: 0 methadone 10 mg/5 mL Solution 95 mg PO DAILY RF: 0 gabapentin 300 mg Capsule 300 mg PO TID PRNRF: 0 Flovent HFA 220 mcg/actuation Hfa Aerosol Inhaler 2 puff INHALATION BID RF: 0 albuterol sulfate [ProAir HFA] 90 mcg/actuation Hfa Aerosol Inhaler 2 puff INHALATION Q6H PRNRF: 0 prednisone 10 mg tablet 10 mg PO DAILY Qty: 45 RF: 0 Medical Decision Making <Jono Dawkins MD - Last Filed: 12/13/18 07:44> 68-year-old male with a history of COPD, interstitial lung disease, who was admitted from December 01- and discharged on steroid taper with follow-up pulmonology with Dr. gerardo at the [facility]. Patient states he has not yet begun his new medication nintedanib or his prescribed home oxygen. He presents today with generalized weakness, increased difficulty breathing with cough and congestion. He has room air saturation of approximately 80% at triage that corrects with application of nasal cannula oxygen. Differential diagnosis is broad and includes underlying interstitial lung disease, exacerbation of COPD, recurrent pneumonia. Patient had IV access established, referred for laboratory testing and chest x-ray. Given inhaled DuoNeb updraft and parenteral steroids with Solu-Medrol will obtain records from recent pulmonary visit. ECG Data Attestation: I personally reviewed and interpreted this ECG (s) as follows: Interpretation: Normal sinus rhythm with a rate of 97, the QRS is narrow, no ST segment elevation is present. <Soledad Camarillo DO - Last Filed: 12/13/18 11:55> Please see Dr. Dawkins's note for initial presentation, exam and plan. Patient is a 68-year-old male with a history of COPD, GERD, anxiety, depression and interstitial lung disease who presented to the ED with complaint of shortness of breath for the past week, worse this morning. Patient was admitted here 5 03-30 for COPD exacerbation and pneumonia. He was found to have undetectable procalcitonin levels and his symptoms improved and he was discharged home with a steroid taper without antibiotics and referred for follow-up with pulmonology at [facility]. Patient saw district loss prevention manager Dr. Gerardo at [facility] on 12/09/2018 and his consult note stated CT notes extensive infiltration with honeycomb changes throughout the right lung consistent with usual interstitial pneumonitis. This is likely a result of chronic aspiration of gastric contents.. There is nothing to suggest an acute bacterial infectious process that require antibiotic therapy. The kyphoscoliosis is contributing to lung volume reduction. Dr. Gerardo's plan recommended aspiration precautions, GI consultation for further evaluation of colonic distention, and he initiated oxygen therapy at 3 L a minute to keep sats greater than 88% and started OFEV at 150mg BID. Patient was unable to start his oxygen or fill the prescription for OFEV and states he is not sure how he will go about this. O2 sat 79% on room air on arrival. Patient was given nebs and steroids and referred for labs and chest x-ray on arrival. Patient is hemodynamically stable. Patient states he feels slightly better on the oxygen. Oxygen saturation 95% on 3 L. Labs reviewed and unremarkable. Normal white blood cell count. Troponin negative. BNP 146. EKG notes a rate of 97 and sinus and no acute ST findings. Chest x-ray per radiology no significant acute change but there appears to be increase in opacities in right lung which may be related to imaging technique. Discussed with patient at length in room that his work-up was reassuring and that the most important step at this time is to start his oxygen and OFEV. Patient expressed concern about going home due to lack of help at home. Patient lives at home with multiple family members. Shortly after this discussion, patient heart rate increased to 140s and A. fib. EKG noted a rate of 140 and atrial fibrillation with no acute ST findings. Review of previous EKGs and records notes no history of atrial fibrillation and patient denies any known history of this. Will give a dose of 15 mg Cardizem and reassess. Will give small bolus IVF. BP 110/79. 0930 -- d/w hospitalist - accepts pt for admission. 0991 -- pt converted to sinus rhythm, repeat EKG notes sinus rate of 101. BP 93/74. 1000 -- Dr. Kapoor here to evaluate and notified of change to sinus. Pt otherwise hemodynamically stable. HPI <Jono Dawkins MD - Last Filed: 12/13/18 07:44> General Mode of arrival: ambulatory . Date/Time Provider Initiated Documentation: 12/13/18 07:21 . Limitations to Documentation: no limitations . Information obtained by: patient . History of Present Illness 68 year old M presents to the emergency department with the chief complaint of Cough, shortness of breath, weakness, described as moderate and similar to prior episodes, Quality is described as dull and constant, and is localized to the chest. Patient reports no radiation. Patient started experiencing this day(s) and it has been constant. No relieving factors improve symptom(s), Movement worsens symptoms . Patient notes cough and shortness of breath; denies chest pain. Patient did receive the following treatments prior to arrival, none Related Data Home Medications Medication Instructions Recorded Confirmed cyclobenzaprine 10 mg PO TID tab-cap 01/02/16 12/01/18 esomeprazole magnesium [Nexium] 20 mg PO DAILY tab-cap 01/02/16 12/01/18 Flovent HFA 2 puff INHALATION BID 10/07/18 12/01/18 albuterol sulfate [ProAir HFA] 2 puff INHALATION Q6H PRN 10/07/18 12/01/18 gabapentin 300 mg PO TID PRN 10/07/18 12/01/18 methadone 95 mg PO DAILY 10/07/18 12/01/18 prednisone 10 mg PO DAILY #45 tab 12/06/18 Previous Rx's Medication Instructions Recorded prednisone 10 mg PO DAILY #45 tab 12/06/18 Allergies Allergy/AdvReac Type Severity Reaction Status Date / Time ketorolac [From Toradol] Allergy makes my Unverified 12/01/18 19:01 head wack out codeine AdvReac Nausea Unverified 12/01/18 19:01 General CARLOS EDUARDO: 2 Review of Systems <Jono Dawkins MD - Last Filed: 12/13/18 07:44> Review of Systems Saw pulmonology last week and was prescribed oxygen and nintedanib, which she has not started. Describes generalized weakness. No falls. States that he is otherwise recently been well. 8 systems reviewed and otherwise negative PFSH <Jono Dawkins MD - Last Filed: 12/13/18 07:44> Medical History Acute respiratory failure with hypoxia (Acute) Chronic pain (Chronic) GERD (gastroesophageal reflux disease) (Chronic) COPD with acute exacerbation (Acute) Tobacco abuse (Acute) Anxiety (Chronic) Back pain (Chronic) COPD (chronic obstructive pulmonary disease) (Chronic) Depression (Chronic) GERD (gastroesophageal reflux disease) (Chronic) Insomnia (Chronic) Macrocytosis (Chronic) Numbness and tingling in right hand (Chronic) Post laminectomy syndrome (Chronic) Right knee DJD (Chronic) Tobacco abuse (Chronic) Surgical History History of right knee surgery (Inactive) History of shoulder surgery (Inactive) Hx of tonsillectomy (Inactive) Previous back surgery (Inactive) Social History Smoking/Tobacco Use Status: Former Tobacco Use Quit Date: 11/19/18 Alcohol Intake: never Drug use: Daily Substance use type: marijuana Do you feel safe at home: Yes Do you feel safe in your relationship?: Yes Additional Social history: He lives in [place], [place] but stays with someone in [facility] to maintain [place] residency so he can participate in the [employer] program. Exam <Jono Dawkins MD - Last Filed: 12/13/18 07:44> Narrative Exam Narrative: GEN: awake, alert, oriented 3. Pleasant, interactive. HEAD: Normocephalic, atraumatic ENT: Mucous membranes moist, oropharynx unremarkable/edentulous, External ear exam unremarkable EYES: PERRL, EOMI NECK: Full ROM, no BRENNA, no menigismus CHEST/RESP: Nontender, bilateral end expiratory wheeze and rhonchi with increased respiratory rate. CARDIOVASCULAR: RRR, no murmur, rub navi. 2+ Rad pulse bilateral ABDOMEN: Soft, nontender, no mass. +Bowel sounds EXT: Full ROM, trace pretibial edema, no rash Neuro: Grossly normal neurologic exam, conversant, interactive. Psych: Speech fluent, thoughts congruent, affect normal Sign Out <Jono Dawkins MD - Last Filed: 12/13/18 07:44> Sign Out Data: Sign Out Comment: followup cxr, labs Last updated by Jono Dawkins MD at 12/13/18 07:47
[2018-12-13] MEDS: Albuterol/Ipratropium 3 ML UPD VIAL UPD ×3 (07:52→23:48)
[2018-12-13] MEDS: Normal Saline Flush 10 ML SYR IVP (08:07)
[2018-12-13] MEDS: methylPREDNISolone SUCC 125 MG VIAL IVP (08:07)
[2018-12-13 08:21] LABS: Abs Immature Grans 0.05 k/cumm (0.0-0.09); Absolute Basophil Count 0.01 k/cumm (0.0-0.2); Absolute Eosinophil Count 0.25 k/cumm (0.0-0.7); Absolute Lymphocyte Count 0.65 k/cumm (1.2-3.4); Absolute Monocyte Count 0.82 k/cumm (0.11-0.7); Absolute Neutrophil Count 7.29 k/cumm (1.2-6.7); Basophils % 0.1; Eosinophils % 2.8; HCT 41.8 % (40.0-50.0); HGB 13.4 g/dL (13.5-17.5); Immature Grans % 0.6; Lymphocytes % 7.2; Mean Corp. HGB Concentration 32.1 g/dL (32.0-36.0); Mean Corpuscular Hemoglobin 28.7 pg (27.0-33.0); Mean Corpuscular Volume 89.5 fL (80-95); Mean Platelet Volume 9.8 fL (8.0-11.0); Neutrophils % 80.3; Platelet Count 277 x1000/uL (130-400); RBC 4.67 m/cumm (4.50-6.00); RBC Distribution Width 15.5 % (11.8-14.1); White Blood Cell Count 9.07 k/cumm (4.4-10.8)
[2018-12-13 08:40] LABS: ALT 19 U/L (12-78); AST 16 U/L (15-37); Albumin 2.5 g/dL (3.4-5.0); Alkaline Phosphatase 83 U/L (46-116); Anion Gap 6.5 mmol/L (3-11); BUN 9 mg/dL (7-18); Bilirubin, Total 0.4 mg/dL (0.2-1.0); CO2 29.5 mmol/L (21.0-32.0); Calcium 8.3 mg/dL (8.5-10.1); Chloride 96 mmol/L (98-107); Glucose 141 mg/dL (70-100); NT-proBNP 146 pg/mL; Potassium 3.9 mmol/L (3.5-5.1); Sodium 132 mmol/L (136-145); Total Protein 6.8 g/dL (6.4-8.2); Troponin I 0.02 ng/mL (0.00-0.06)
--- NOTE | 2018-12-13 08:41 | DI.RAD_ITS ---
SYMPTOM/DIAGNOSIS: COUGH, SOB AP AND LATERAL CHEST: Comparison is made with 12/01/18. There is poor pulmonary inflation on both views. Again noted are increased markings throughout the right lung and right sided volume loss, without significant change from the previous exam. The left lung appears clear. IMPRESSION: Stable appearance of right sided opacities as well as interstitial changes and volume loss.
[2018-12-13] MEDS: dilTIAZem 25 MG/5 ML VIAL 15 MG IVP (09:34)
[2018-12-13] MEDS: Normal Saline 250 ML IV (09:36)
--- NOTE | 2018-12-13 09:42 | PDOC.ERCMPRO ---
Care Management Progress Note 12/13-Dr. Camarillo requested assistance with Eladio. Eladio was admitted at [facility] from 12/01-12/06 for HCAP, COPD w/acute exacerbation. Eladio had an appt December 09 at [facility] with Dr. Pretty Gallego, Pulmonology. Dr. Gallego prescribed ninetdaib 150 mg twice a day for 30 days plus home oxygen. Unfortunately, Eladio did not fill either script. This CM discussed with Eladio and he stated that he was brought home by [facility] [place] and the scripts were in the milk wagon driver's car and he did not get them back until this morning. Called [facility] Pulmonology and spoke with Wilfred. Discussed the Oxygen script to see if any supporting documentation along with the script was sent to any DME. Wilfred stated no documentation has been sent. At this CM's request, Wilfred will send supporting documentation to [facility] in [place] at [phone]. This CM faxed the script to [facility]. This CM made two phone calls to [facility] and spoke to Becky and Renee. After meeting again with Eladio, he stated he was staying at his daughter Zoya's home, [address] [place] [address] during his illness. Discussed with Renee at [facility], that the demographics did not reflect address for which the oxygen should be delivered. Renee states she will make sure it is changed. Scripts given back to patient. Discussed above with Dr. Camarillo who is admitted the patient, diagnosis: afib w/AVR. Discussed Palliative Care Consult with both Dr. Camarillo and patient. Both in agreement. Dr. Camarillo will place Palliative Consult and this CM will fax to Palliative office.
--- NOTE | 2018-12-13 11:24 | CMPROGNOTE_ITS ---
Care Management Progress Note 12/13-Dr. Camarillo requested assistance with Eladio. Eladio was admitted at [facility] from 12/01-12/06 for HCAP, COPD w/acute exacerbation. Eladio had an appt December 09 at [facility] with Dr. Pretty Gallego, Pulmonology. Dr. Gallego prescribed ninetdaib 150 mg twice a day for 30 days plus home oxygen. Unfortunately, Eladio did not fill either script. This CM discussed with Eladio and he stated that he was brought home by [facility] and the scripts were in the driver license examiner's car and he did not get them back until this morning. Called [facility] Pulmonology and spoke with Wilfred. Discussed the Oxygen script to see if any supporting documentation along with the script was sent to any DME. Wilfred stated no documentation has been sent. At this CM's request, Wilfred will send supporting documentation to [facility] in [place] at [phone]. This CM faxed the script to [facility]. This CM made two phone calls to [facility] and spoke to Becky and Renee. After meeting again with Eladio, he stated he was staying at his daughter Zoya's home, [address] [place] [address] during his illness. Discussed with Renee at [facility], that the demographics did not reflect address for which the oxygen should be delivered. Renee states she will make sure it is changed. Scripts given back to patient. Discussed above with Dr. Camarillo who is admitted the patient, diagnosis: afib w/AVR. Discussed Palliative Care Consult with both Dr. Camarillo and patient. Both in agreement. Dr. Camarillo will place Palliative Consult and this CM will fax to Palliative office.
--- NOTE | 2018-12-13 12:07 | NUR.NOTE ---
patient has been resting comfortbly, food tray ordered, patient denies pain during time of assessmentursing Note:
--- NOTE | 2018-12-13 12:45 | MERGE_ITS ---
*[facility]* *[facility]* [address] [place] [address] Date of study: 12/13/2018 Transthoracic Echocardiography M-mode, complete 2D, complete spectral Doppler, and color Doppler *STUDY CONCLUSIONS* Summary: 1. Left ventricle: The cavity size was normal. Systolic function was hyperdynamic. The estimated ejection fraction was 65-70%. Some parameters suggest diastolic dysfunction. There was no evidence of elevated ventricular filling pressure by Doppler parameters. 2. Aortic valve: There was mild stenosis. Peak velocity (S): 1.6m/sec. Mean gradient (S): 5.5mm Hg. VTI ratio of LVOT to aortic valve: 0.39. Valve area (VTI): 1.2cm^2. 3. Right ventricle: Poorly visualized. 4. Pulmonary arteries: Pulmonary systolic pressure was in the range of 55mm Hg to 65mm Hg. 5. Inferior vena cava: The vessel was patent and normal in size. The respirophasic diameter changes were in the normal range (greater than or equal to 50%), consistent with normal central venous pressure. *PATIENT PRESENTATION* Height: 170.2cm ((67in) ) S/D Pressure: 115 / 79 Weight: 66.7kg ((146.7lb) ) BSA: 1.78m^2 Test start time: 12:50 PM. Test stop time: 01:50 PM. PERFORMING Unknown PERFORMING [facility] MANAGER CAREER Marlena Ruiz, RT (R)(CT), RDCS CONSULTING Richelle Dowling [facility] ORDERING Antwon, ConsueloConsuelo Thakkar *PROCEDURE DATA* Procedure information: The patient was identified by two identifiers. This study was interpreted by [facility]. Pertinent images and digital data are archived for permanent storage and are available for subsequent review. Comparison was made to the study of 10/10/2018. Study status: Routine. Transthoracic echocardiography. M-mode, complete 2D, complete spectral Doppler, and color Doppler. A Transthoracic Echocardiogram was performed. Scanning was performed from the parasternal, apical, subcostal, and suprasternal notch acoustic windows. Images were obtained using an [id number] cardiac ultrasound machine. Image quality was adequate. Study completion: The patient tolerated the procedure well. History: PMH: New onset afib. *CARDIAC ANATOMY* Left ventricle: The cavity size was normal. Systolic function was hyperdynamic. The estimated ejection fraction was 65-70%. The tissue Doppler parameters were abnormal. Some parameters suggest diastolic dysfunction. There was no evidence of elevated ventricular filling pressure by Doppler parameters. Aortic valve: Trileaflet; moderately thickened, moderately calcified leaflets. Doppler: There was mild stenosis. VTI ratio of LVOT to aortic valve: 0.39. Valve area (VTI): 1.2cm^2. Indexed valve area (VTI): 0.7cm^2/m^2. Peak velocity ratio of LVOT to aortic valve: 0.52. Valve area (Vmax): 1.7cm^2. Indexed valve area (Vmax): 0.9cm^2/m^2. Mean velocity ratio of LVOT to aortic valve: 0.48. Valve area (Vmean): 1.5cm^2. Indexed valve area (Vmean): 0.9cm^2/m^2. Mean gradient (S): 5.5mm Hg. Peak gradient (S): 10mm Hg. Aorta: Aortic root: The aortic root was normal in size. Ascending aorta: The ascending aorta was normal in size. Mitral valve: Doppler: There was no evidence for stenosis. There was no significant regurgitation. Valve area by pressure half-time: 3.5cm^2. Indexed valve area by pressure half-time: 2cm^2/m^2. Left atrium: The atrium was normal in size. Atrial septum: Poorly visualized. Right ventricle: Poorly visualized. Pulmonic valve: Doppler: There was no evidence for stenosis. There was no significant regurgitation. Peak gradient (S): 3.2mm Hg. Tricuspid valve: Doppler: There was mild regurgitation. Pulmonary artery: Poorly visualized. Pulmonary systolic pressure was in the range of 55mm Hg to 65mm Hg. Right atrium: The atrium was normal in size. Pericardium: There was no significant pericardial effusion. Systemic veins: Inferior vena cava: Not well visualized. The vessel was patent and normal in size. The respirophasic diameter changes were in the normal range (greater than or equal to 50%), consistent with normal central venous pressure. Baseline ECG: Normal sinus rhythm. Measurements Left ventricle Value 10/10/2018 Reference LV ID, ED, PLAX 4.2 cm 3.9 3.5 - 6.0 LV ID, ES, PLAX 2.7 cm 2.7 2.1 - 4.0 LV PW thickness, ED, PLAX 1.1 cm 1.1 LV end-diastolic volume, 46 ml 59 1-p A4C LV ejection fraction, 1-p 69 % 53 A4C LV e', lateral 0.07 m/sec 0.062 LV E/e', lateral 6 9 LV e', medial 0.047 m/sec 0.057 LV E/e', medial 9 10 LV e', average 0.059 m/sec 0.06 LV E/e', average 7 10 Ventricular septum Value 10/10/2018 Reference IVS thickness, ED, PLAX 0.9 cm 1.1 LVOT Value 10/10/2018 Reference LVOT ID, A-P 2.0 cm 2.0 LVOT area 3.2 cm^2 3.2 LVOT peak velocity, S 0.83 m/sec 0.77 LVOT mean velocity, S 0.53 m/sec 0.56 LVOT VTI, S 11.2 cm 17.0 LVOT peak gradient, S 2.7 mm Hg 2.4 LVOT mean gradient, S 1.3 mm Hg 1.4 Stroke volume (SV), LVOT 36 ml 54 DP Stroke index (SV/bsa), 20 ml/m^2 28 LVOT DP Aortic valve Value 10/10/2018 Reference Aortic valve peak 1.6 m/sec 2 velocity, S Aortic valve mean 1.09 m/sec 1.48 velocity, S Aortic valve VTI, S 29.0 cm 40.0 Aortic mean gradient, S 5.5 mm Hg 9.4 Aortic peak gradient, S 10 mm Hg 15.9 VTI ratio, LVOT/AV 0.39 0.42 Aortic valve area, VTI 1.2 cm^2 1.3 Velocity ratio, peak, 0.52 0.39 LVOT/AV Aortic valve area, peak 1.7 cm^2 1.2 velocity Velocity ratio, mean, 0.48 0.38 LVOT/AV Aortic valve area, mean 1.5 cm^2 1.2 velocity Aortic valve area/bsa, 0.9 cm^2/m^2 0.6 mean velocity Aorta Value 10/10/2018 Reference Aortic root ID, ED 3.3 cm 3.5 Ascending aorta ID, A-P, S 2.9 cm 2.9 Left atrium Value 10/10/2018 Reference LA ID, A-P, ES 2.9 cm 2.7 LA ID/bsa, A-P 1.6 cm/m^2 1.4 <=2.2 LA area, ES, A4C 15.2 cm^2 18.6 8.8 - 23.4 LA volume/bsa, ES, 1-p A4C 21 ml/m^2 35 LA/aortic root ratio 0.88 0.77 Mitral valve Value 10/10/2018 Reference Mitral E-wave peak 0.42 m/sec 0.57 velocity Mitral A-wave peak 0.72 m/sec 0.91 velocity Mitral deceleration time 216 ms 218 150 - 230 Mitral pressure half-time 63 ms 63 Mitral E/A ratio, peak 0.58 0.63 Mitral valve area, PHT, DP 3.5 cm^2 3.5 Tricuspid valve Value 10/10/2018 Reference Tricuspid regurg peak 3.8 m/sec 3 velocity Tricuspid peak RV-RA 58.9 mm Hg 35.2 gradient Right atrium Value 10/10/2018 Reference RA area, ES, A4C 8.7 cm^2 12.1 8.3 - 19.5 Pulmonic valve Value 10/10/2018 Reference Pulmonic peak gradient, S 3.2 mm Hg Legend: (L) and (H) jaki values outside specified reference range. I have personally reviewed the images and have reviewed and edited the reported findings. Electronically signed by Ti Burnham MD 12/13/2018 17:22
[2018-12-13] MEDS: Enoxaparin 40 MG/0.4 ML SYR SC (14:06)
[2018-12-13 14:53] LABS: Troponin I 0.02 ng/mL (0.00-0.06)
[2018-12-13] MEDS: Normal Saline 1,000 ML 100 ML IV (16:31)
--- NOTE | 2018-12-13 18:29 | W.PM.HP.N ---
Date of service: 12/13/18 Time of Service: 11:00 Assessment and Plan (1) Paroxysmal atrial fibrillation with rapid ventricular response: Current visit: Yes Status: Acute Having converted to NSR. CHADSVASC score is 1 - low to moderate risk of thromboembolic event. However, the patient is also a very high fall risk - he stated that in the last 6 months he has fallen 5 times. He is also on methadone, making his risk to fall higher, in my opinion. At this point, I do not feel that the patient is a great candidate for anticoagulation. We can try him on baby aspirin. Meanwhile, we will watch the patient on tele and obtain serial troponins. Echo is already done - showing moderate to severe pulmonary hypertension, diastolic dysfunction. The patient would benefit from a sleep study as outpatient. (2) Chronic respiratory failure with hypoxia: Current visit: Yes Status: Chronic We will ensure that the patient gets his oxygen delivered on discharge. (3) Restrictive lung disease: Current visit: Yes Status: Chronic At baseline - no change in tx (4) Interstitial lung disease: Current visit: Yes Status: Chronic At baseline - no change in tx (5) GERD (gastroesophageal reflux disease): Current visit: No Status: Chronic Continue PPI - however, I feel this isn't the only reason the patient could be aspirating - he is also on methadone. (6) Chronic pain: Current visit: No Status: Chronic Continue outpatient therapy. (7) Dysphagia: Current visit: Yes Status: Chronic As above. In addition, patient was previously seen by speech therapy - recommended to be on dysphagia advanced diet with moistened chopped meats and thin liquids. (8) Opioid dependence: Current visit: Yes Status: Chronic Continue home therapy (9) Pulmonary hypertension: Current visit: Yes Status: Chronic Will need a sleep study (10) Ambulatory dysfunction: Current visit: Yes Status: Chronic PT/OT consults (11) Failure to thrive: Current visit: Yes Status: Chronic Could be due to his severe pulmonary disease - however, malignancy workup should be undertaken as outpatient (12) Unintentional weight loss: Current visit: Yes Status: Chronic As above (13) Diastolic dysfunction: Current visit: Yes Status: Chronic Monitor volume status (14) Discharge planning issues: Current visit: No Status: Acute Full code PT/OT consults (15) DVT prophylaxis: Current visit: Yes Status: Acute Lovenox History of Present Illness Chief Complaint: shortness of breath at home Narrative: Mr Tripathi is a 68 year old male with PMHx of COPD, restrictive and interstitial lung disease, suspected chronic aspiration, and chronic hypoxic respiratory failure felt to require 3L of O2 by outpatient pulmonology (he just had the appointment on 12/09/18), who unfortunately was not able to get his oxygen delivered to his house, so he came to the hospital complaining of shortness of breath and dizziness. The shortness of breath is not any worse than his chronic. He does have a cough, but it's nonproductive. He does not endorse wheezing. As far as dizziness, he describes it to me as happening when he gets up, and he does sometimes get palpitations and darkening of his vision. He does not think that he has ever passed out. The patient also reports poor appetite, not having eaten in 3 days. He does feel weak. He states he has lost more than 100 lbs this last year, unintentionally (our records indicate that he lost 9 kg in 2 months). When the patient arrived to the ED, his O2 sat on room air was 78%. He was put on 5L of O2 - his O2 sats have come up to the 90's. Additionally, the patient then went into rapid Afib, of which he was relatively asymptomatic. He does not recall ever being diagnosed with Afib before. He was given a boluse of IV cardizem, after which he did convert to NSR. We were asked to observe/workup the patient further. Review of Systems Review of Systems 12 systems reviewed. Pertinent positives and negatives are as per HPI. Additionally, endorses PND. He sleeps on 4 pillows - but he cannot tell me whether this is because he gets short of breath when laying flat or because his back hurts. Reports chronic numbness in his Bilateral hands. Reports 5 falls in the last 6 months - has a walker at home but does not use it. [facility] Medical History Diastolic dysfunction (Chronic) Unintentional weight loss (Chronic) Failure to thrive (Chronic) Ambulatory dysfunction (Chronic) Pulmonary hypertension (Chronic) Opioid dependence (Chronic) Chronic respiratory failure with hypoxia (Chronic) Dysphagia (Chronic) Chronic pain (Chronic) GERD (gastroesophageal reflux disease) (Chronic) COPD with acute exacerbation (Acute) Tobacco abuse (Acute) Chronic constipation (Acute) Chronic respiratory failure with hypoxia (Chronic) Interstitial lung disease (Chronic) Restrictive lung disease (Chronic) Acute respiratory failure with hypoxia (Chronic) Anxiety (Chronic) Back pain (Chronic) COPD (chronic obstructive pulmonary disease) (Chronic) Depression (Chronic) GERD (gastroesophageal reflux disease) (Chronic) Insomnia (Chronic) Macrocytosis (Chronic) Numbness and tingling in right hand (Chronic) Post laminectomy syndrome (Chronic) Right knee DJD (Chronic) Tobacco abuse (Chronic) Surgical History History of right knee surgery (Inactive) History of shoulder surgery (Inactive) Hx of tonsillectomy (Inactive) Previous back surgery (Inactive) Social History Smoking/Tobacco Use Status: Former Tobacco Use Quit Date: 11/19/18 Alcohol Intake: never Drug use: Daily Substance use type: marijuana Do you feel safe at home: Yes Do you feel safe in your relationship?: Yes Additional Social history: He lives in [place], [place] but stays with someone in [facility] to maintain [place] residency so he can participate in the [employer] program. Meds Home Medications Medication Instructions Recorded Confirmed Type cyclobenzaprine 10 mg PO TID tab-cap 01/02/16 12/13/18 History esomeprazole magnesium [Nexium] 20 mg PO DAILY tab-cap 01/02/16 12/13/18 History Flovent HFA 2 puff INHALATION BID 10/07/18 12/13/18 History methadone 95 mg PO DAILY 10/07/18 12/13/18 History prednisone 10 mg PO DAILY #45 tab 12/06/18 12/13/18 Rx Allergies Allergy/AdvReac Type Severity Reaction Status Date / Time ketorolac [From Toradol] Allergy makes my Unverified 12/01/18 19:01 head wack out codeine AdvReac Nausea Unverified 12/01/18 19:01 Exam Narrative Exam Narrative: General: Middle-aged male, who appears much older than his stated age, A&Ox3, laying comfortably in bed, conversing fluently with O2 on, no dyspnea noted; poor historian Neurological: A&Ox3, L eye is slightly less open than right - patient states this is chronic Psychiatric: appropriate speech pattern/content Skin: visible skin intact HEENT: Atraumatic, normocephalic, EOMI, dry MM, clear oropharynx, no submandibular or cervical lymphadenopathy, no goiter or JVD Cardiovascular: RRR, no m/r/g Lungs: suprisingly, slightly coarse, but mostly clear to auscultation B with good B air entry Gastrointestinal: abdomen is soft, nontender, nondisnteded Extremities: no e/c/c BLE's, 1+ BLE pedal pulses: hand muscle wasting noted Results Imaging Additional studies: CXR: done, official read unavailable; per my read, chronic interstitial changes of R lung, scoliosis Echo: 1. Left ventricle: The cavity size was normal. Systolic function was hyperdynamic. The estimated ejection fraction was 65-70%. Some parameters suggest diastolic dysfunction. There was no evidence of elevated ventricular filling pressure by Doppler parameters. 2. Aortic valve: There was mild stenosis. Peak velocity (S): 1.6m/sec. Mean gradient (S): 5.5mm Hg. VTI ratio of LVOT to aortic valve: 0.39. Valve area (VTI): 1.2cm^2. 3. Right ventricle: Poorly visualized. 4. Pulmonary arteries: Pulmonary systolic pressure was in the range of 55mm Hg to 65mm Hg. 5. Inferior vena cava: The vessel was patent and normal in size. The respirophasic diameter changes were in the normal range (greater than or equal to 50%), consistent with normal central venous pressure. EKG 0916 12/13/18: HR 140, Afib, nonspecific ST segment depressions diffusely EKG 0953 12/13/18: HR 101, sinus tachycardia, ST segment depressions have disappeared Labs : 12/13/18 07:50 12/13/18 08:12 Laboratory Results - last 24 hr 12/13/18 12/13/18 12/13/18 07:50 08:12 14:20 WBC 9.07 RBC 4.67 Hgb 13.4 L Hct 41.8 MCV 89.5 MCH 28.7 MCHC 32.1 RDW 15.5 H Plt Count 277 MPV 9.8 Immature Gran % 0.6 Neutrophils % 80.3 Lymphocytes % 7.2 Monocytes % 9.0 Eosinophils % 2.8 Basophils % 0.1 Absolute Neutrophils 7.29 H Absolute Lymphocytes 0.65 L Absolute Monocytes 0.82 H Absolute Eosinophils 0.25 Absolute Basophils 0.01 Sodium 132 L Potassium 3.9 Chloride 96 L Carbon Dioxide 29.5 Anion Gap 6.5 BUN 9 Creatinine 0.60 L Estimated GFR/1.73 m2 >= 60.00 Glucose 141 H Calcium 8.3 L Magnesium 2.0 Total Bilirubin 0.4 AST 16 ALT 19 Alkaline Phosphatase 83 Troponin I 0.02 0.02 NT-Pro-B Natriuret Pep 146 Total Protein 6.8 Albumin 2.5 L Last Vital Signs Temp 36.7 C 12/13/18 15:43 Pulse 93 H 12/13/18 15:43 Resp 22 12/13/18 15:43 BP 105/74 12/13/18 15:43 Pulse Ox 99 12/13/18 15:43
[2018-12-13] MEDS: Acetaminophen 325 MG TAB PO (18:46)
[2018-12-13] MEDS: Docusate Sodium 100 MG CAP PO (19:43)
[2018-12-13] MEDS: Cyclobenzaprine 10 MG TAB PO (19:51)
[2018-12-13] MEDS: Mometasone 220 MCG 14 DOSE INHALER 1 PUFF IH (21:02)
[2018-12-13 22:50] LABS: Troponin I 0.02 ng/mL (0.00-0.06)
[2018-12-14] VITALS (20 sets, daily range): BP systolic 103–118; BP diastolic 70–76; PULSE 66–102; RESP 1–24; TEMP 36.4–37.2; O2SAT 86–99
[2018-12-14] MEDS: Normal Saline 1,000 ML 100 ML IV ×2 (01:55→11:41)
[2018-12-14] MEDS: Albuterol/Ipratropium 3 ML UPD VIAL UPD ×3 (06:02→18:42)
[2018-12-14] MEDS: Mometasone 220 MCG 14 DOSE INHALER 1 PUFF IH ×2 (07:30→20:08)
--- NOTE | 2018-12-14 08:06 | PDOC.CMIN ---
- If Service Date Differs Date of service: 12/14/18 Time of Service: 08:06 Care Management Initial Assess REASON FOR HOSPITALIZATION:: Paroxysmal atrial fibrillation with rapid ventricular response PAST MEDICAL HISTORY/PAST SURGICAL HISTORY:: Diastolic dysfunction (Chronic). Unintentional weight loss (Chronic). Failure to thrive (Chronic). Ambulatory dysfunction (Chronic). Pulmonary hypertension (Chronic). Opioid dependence (Chronic). Chronic respiratory failure with hypoxia (Chronic). Dysphagia (Chronic). Chronic pain (Chronic). GERD (gastroesophageal reflux disease) (Chronic). COPD with acute exacerbation (Acute). Tobacco abuse (Acute). Chronic constipation (Acute). Chronic respiratory failure with hypoxia (Chronic). Interstitial lung disease (Chronic). Restrictive lung disease (Chronic). Acute respiratory failure with hypoxia (Chronic). Anxiety (Chronic). Back pain (Chronic). COPD (chronic obstructive pulmonary disease) (Chronic). Depression (Chronic). GERD (gastroesophageal reflux disease) (Chronic). Insomnia (Chronic). Macrocytosis (Chronic). Numbness and tingling in right hand (Chronic). Post laminectomy syndrome (Chronic). Right knee DJD (Chronic). Tobacco abuse (Chronic). History of right knee surgery (Inactive). History of shoulder surgery (Inactive). Hx of tonsillectomy (Inactive). Previous back surgery (Inactive) PREVIOUS FUNCTIONAL STATUS/SOCIAL/FAMILY SUPPORTS:: Eladio resides with his daughter Zoya and her family in [place], [place]. He reports that he has two other children whom reside in [facility]. Eladio reports that he no longer drives and utilizes [employer] for transportation. Eladio is independent at baseline, and manages ADL's CURRENT FUNCTIONAL STATUS:: Currently Eladio is lying in bed when this script writer visits, he is pleasant and receptive to discussion. ADVANCE DIRECTIVES:: none on file Has patient been provided with information about the portal?: Yes Did the patient sign up for the portal?: No CODE STATUS:: Full Code INSURANCE COVERAGE / FINANCIAL ISSUES:: JOSÉ LEDESMA CURRENT HOME/COMMUNITY SERVICES/EQUIPMENT:: Currently Eladio receives Methadone through [facility] and states that he has receives Methadone for two weeks at a time through the [facility]. He also has a FWW at home which was distributed last admission. PRIMARY CARE PHYSICIAN:: Richelle Dowling POTENTIAL DISCHARGE NEEDS:: F/U appointment with PCP. [facility] health PT - CM spoke with Hilary [facility], ([phone]), to update that Eladio was admitted. CM to notify Vicky upon DC. PATIENT/FAMILY EDUCATION NEEDS:: Review DC instructions, any limitations, and ongoing DC planning discussion. discuss 'Ask Me three' ANTICIPATED BARRIERS TO DISCHARGE:: None identified at this time TRANSPORTATION:: Via private vehicle with ricky Kenny PLAN:: Eladio will return home with a resumption of [facility] services, as well as a resumption of home health PT through [facility]. He will F/U with PCP and plan of care as prescribed. Ricky Kenny to transport.
--- NOTE | 2018-12-14 08:13 | INITIAL_ITS ---
- If Service Date Differs Date of service: 12/14/18 Time of Service: 08:06 Care Management Initial Assess REASON FOR HOSPITALIZATION:: Paroxysmal atrial fibrillation with rapid ventricular response PAST MEDICAL HISTORY/PAST SURGICAL HISTORY:: Diastolic dysfunction (Chronic). Unintentional weight loss (Chronic). Failure to thrive (Chronic). Ambulatory dysfunction (Chronic). Pulmonary hypertension (Chronic). Opioid dependence (Chronic). Chronic respiratory failure with hypoxia (Chronic). Dysphagia (Chronic). Chronic pain (Chronic). GERD (gastroesophageal reflux disease) (Chronic). COPD with acute exacerbation (Acute). Tobacco abuse (Acute). Chronic constipation (Acute). Chronic respiratory failure with hypoxia (Chronic). Interstitial lung disease (Chronic). Restrictive lung disease (Chronic). Acute respiratory failure with hypoxia (Chronic). Anxiety (Chronic). Back pain (Chronic). COPD (chronic obstructive pulmonary disease) (Chronic). Depression (Chronic). GERD (gastroesophageal reflux disease) (Chronic). Insomnia (Chronic). Macrocytosis (Chronic). Numbness and tingling in right hand (Chronic). Post laminectomy syndrome (Chronic). Right knee DJD (Chronic). Tobacco abuse (Chronic). History of right knee surgery (Inactive). History of shoulder surgery (Inactive). Hx of tonsillectomy (Inactive). Previous back surgery (Inactive) PREVIOUS FUNCTIONAL STATUS/SOCIAL/FAMILY SUPPORTS:: Eladio resides with his daughter Zoya and her family in [place], [place]. He reports that he has two other children whom reside in [facility]. Eladio reports that he no longer drives and utilizes [employer] for transportation. Eladio is independent at baseline, and manages ADL's CURRENT FUNCTIONAL STATUS:: Currently Eladio is lying in bed when this repairer typewriter visits, he is pleasant and receptive to discussion. ADVANCE DIRECTIVES:: none on file Has patient been provided with information about the portal?: Yes Did the patient sign up for the portal?: No CODE STATUS:: Full Code INSURANCE COVERAGE / FINANCIAL ISSUES:: JOSÉ LEDESMA CURRENT HOME/COMMUNITY SERVICES/EQUIPMENT:: Currently Eladio receives Methadone through [facility] and states that he has receives Methadone for two weeks at a time through the [facility]. He also has a FWW at home which was distributed last admission. PRIMARY CARE PHYSICIAN:: Richelle Dowling POTENTIAL DISCHARGE NEEDS:: F/U appointment with PCP. [facility] health PT - CM spoke with Hilary [facility], ([phone]), to update that Eladio was admitted. CM to notify Vicky upon DC. PATIENT/FAMILY EDUCATION NEEDS:: Review DC instructions, any limitations, and ongoing DC planning discussion. discuss 'Ask Me three' ANTICIPATED BARRIERS TO DISCHARGE:: None identified at this time TRANSPORTATION:: Via private vehicle with ricky Kenny PLAN:: Eladio will return home with a resumption of [facility] services, as well as a resumption of home health PT through [facility]. He will F/U with PCP and plan of care as prescribed. Ricky Kenny to transport.
[2018-12-14] MEDS: Esomeprazole 20 MG CAPCR PO (09:03)
[2018-12-14] MEDS: Cyclobenzaprine 10 MG TAB PO ×3 (09:04→20:03)
[2018-12-14] MEDS: Aspirin E.C. 81 MG TABEC PO (09:04)
[2018-12-14] MEDS: Methadone Liquid 10 MG/ML 95 MG PO (09:05)
[2018-12-14] MEDS: Docusate Sodium 100 MG CAP PO ×2 (09:05→20:04)
[2018-12-14 09:46] LABS: Abs Immature Grans 0.06 k/cumm (0.0-0.09); Absolute Lymphocyte Count 1.14 k/cumm (1.2-3.4); Absolute Monocyte Count 0.83 k/cumm (0.11-0.7); Absolute Neutrophil Count 12.74 k/cumm (1.2-6.7); Basophils % 0.1; Eosinophils % 0.5; HCT 40.4 % (40.0-50.0); Immature Grans % 0.4; Lymphocytes % 7.7; Mean Corp. HGB Concentration 32.2 g/dL (32.0-36.0); Mean Corpuscular Volume 90.2 fL (80-95); Monocytes % 5.6; Neutrophils % 85.7; Platelet Count 286 x1000/uL (130-400); RBC 4.48 m/cumm (4.50-6.00); RBC Distribution Width 15.3 % (11.8-14.1); White Blood Cell Count 14.87 k/cumm (4.4-10.8)
[2018-12-14 09:47] LABS: Absolute Basophil Count 0.01 k/cumm (0.0-0.2); Absolute Eosinophil Count 0.07 k/cumm (0.0-0.7)
[2018-12-14 10:08] LABS: Anion Gap 8.3 mmol/L (3-11); BUN 10 mg/dL (7-18); CO2 26.7 mmol/L (21.0-32.0); CREATININE 0.61 mg/dL (0.70-1.30); Calcium 8.5 mg/dL (8.5-10.1); Chloride 100 mmol/L (98-107); Glucose 149 mg/dL (70-100); Potassium 3.6 mmol/L (3.5-5.1); Sodium 135 mmol/L (136-145); TSH (W/Ref FT4) 2.76 uIU/mL (0.358-3.74)
[2018-12-14 10:23] LABS: Vitamin B12 501 pg/mL (193-986)
--- NOTE | 2018-12-14 11:00 | OT.INIE ---
Occupational Therapy Notes Inpatient Occupational Therapy Evaluation Date: 12/14/18 Referring Doctor:Consuelo Kapoor MD OT Orders: Eval and Treat Precautions: Fall, Standard PATIENT PROFILE/ADMITTING DIAGNOSIS: Pt is a 68 year old male who was admitted through the ER for Atrial fibrillation with rapid ventricular response, Acute exacerbation of chronic obstructive pulmonary disease (COPD), History of interstitial lung disease, Hypoxia Past Medical History: Anxiety (Chronic),Back pain (Chronic),COPD (chronic obstructive pulmonary disease) (Chronic),Depression (Chronic),GERD (gastroesophageal reflux disease) (Chronic),Insomnia (Chronic),Macrocytosis (Chronic),Numbness and tingling in right hand (Chronic),Right knee DJD (Chronic) Tobacco abuse (Chronic)History of right knee surgery,History of shoulder surgery,Hx of tonsillectomy Social History/Home Situation: Pt reports that he lives with his daughter, her and two children in a private home. He reports that through the garage there are 3 steps to enter. His bedroom resides on the 2nd floor. His baseline for ADLs/IADLs is that he is (I) with dressing, toileting and bathing. However pt reports that he baths standing in the shower and gets dizzy at times decreasing his bathing safety. OT does recommend that pt get a shower chair or bench for the shower to increase his safety. Pt brushes his teeth standing at the sink and performs stairs one step at a time. Pt does not drive he utilizes [employer] as he states he gave his license up a couple years ago due to not being able to afford a car or the insurance for it. Equipment owned/DME: walker and cane and he uses them as needed. SUBJECTIVE: Pt was sitting in bed when OT arrived. He was agreeable to OT consult. OBJECTIVE: General Observation: Nasal cannula O2 Mental Status: A&Ox3 Pain: No c/o pain ROM: RUE Shoulder flexion limited to 60* AROM d/t old rotator cuff issue from high school, elbow WNL, hand WNL L UE Shoulder flexion limited to 60* AROM d/t old rotator cuff issue from falling down stairs in 2013, elbow WNL, hand WNL STRENGTH: RUE Shoulder flexion 4/5, bicep 3+/5, tricep 3+/5, metal solderer was strong LUE Shoulder flexion 4/5, bicep 3+/5, tricep 3+/5, metal solderer was strong but less than (R) FUNCTIONAL MOBILITY/ADLS: Dressing LE: Pt was educated and trained in use of sock to don and doff (B) socks. He was able to perform with min vc and verbalized understanding to this. BALANCE: Static sitting Normal Dynamic Sitting Normal SPECIAL TESTS: Daily Activity Limitations Standardized Measure [facility] AM -PAC ?6 clicks? Daily Activity Inpatient Short Form: Raw score: 20 Standardized score: 42.03 CMS score: 38.32% INFORMED CONSENT/EDUCATION: Pt instructed in purpose of OT Consult and plan of care. ASSESSMENT: Patient is a 68-year-old male referred to occupational therapy services with diagnosis Atrial fibrillation with rapid ventricular response, Acute exacerbation of chronic obstructive pulmonary disease (COPD), History of interstitial lung disease, Hypoxia. Patient presents with clinical signs and symptoms consistent with dx, as demonstrated by the following impairment level findings: Decreased (B) functional ROM, decreased functional strengthening, decreased functional activity tolerance, current use of O2 during ADL routines. Impairments are contributing to the following functional limitations: Decreased functional activity tolerance, decreased (I) in above head functional use of (B) UE, chronic pain and decreased ROM, decreased O2 saturation with functional activities. AMPAC score 20, CMS score 38.32% Patient is assessed as a Moderate 84392 complexity based on the following: History: See Above Examination: See Above Presentation: Evolving Decision Making: AMPAC score 20, CMS score 38.32% GOALS N/A PLAN OF CARE/TREATMENT PLAN: OT consult only as plan is for pt to be discharged today. DISCHARGE RECOMMENDATIONS OT recommends that pt return home when medically cleared per MD with home health services. OT recommends that pt get a shower chair or bench to decrease fall risk and increase pts safety during bathing routine. TREATMENT TIME/MINUTES/CODES 72836, 15 minutes (08:00) [facility]PH[facility]IE [facility]
--- NOTE | 2018-12-14 11:05 | OTIE_ITS ---
Occupational Therapy Notes Inpatient Occupational Therapy Evaluation Date: 12/14/18 Referring Doctor:Consuelo Kapoor MD OT Orders: Eval and Treat Precautions: Fall, Standard PATIENT PROFILE/ADMITTING DIAGNOSIS: Pt is a 68 year old male who was admitted through the ER for Atrial fibrillation with rapid ventricular response, Acute exacerbation of chronic obstructive pulmonary disease (COPD), History of interstitial lung disease, Hypoxia Past Medical History: Anxiety (Chronic),Back pain (Chronic),COPD (chronic obstructive pulmonary disease) (Chronic),Depression (Chronic),GERD (gastroesophageal reflux disease) (Chronic),Insomnia (Chronic),Macrocytosis (Chronic),Numbness and tingling in right hand (Chronic),Right knee DJD (Chronic) Tobacco abuse (Chronic)History of right knee surgery,History of shoulder surgery,Hx of tonsillectomy Social History/Home Situation: Pt reports that he lives with his daughter, her and two children in a private home. He reports that through the garage there are 3 steps to enter. His bedroom resides on the 2nd floor. His baseline for ADLs/IADLs is that he is (I) with dressing, toileting and bathing. However pt reports that he baths standing in the shower and gets dizzy at times decreasing his bathing safety. OT does recommend that pt get a shower chair or bench for the shower to increase his safety. Pt brushes his teeth standing at the sink and performs stairs one step at a time. Pt does not drive he utilizes [employer] as he states he gave his license up a couple years ago due to not being able to afford a car or the insurance for it. Equipment owned/DME: walker and cane and he uses them as needed. SUBJECTIVE: Pt was sitting in bed when OT arrived. He was agreeable to OT consult. OBJECTIVE: General Observation: Nasal cannula O2 Mental Status: A&Ox3 Pain: No c/o pain ROM: RUE Shoulder flexion limited to 60* AROM d/t old rotator cuff issue from high school, elbow WNL, hand WNL L UE Shoulder flexion limited to 60* AROM d/t old rotator cuff issue from falling down stairs in 2013, elbow WNL, hand WNL STRENGTH: RUE Shoulder flexion 4/5, bicep 3+/5, tricep 3+/5, steel barrel reamer was strong LUE Shoulder flexion 4/5, bicep 3+/5, tricep 3+/5, steel barrel reamer was strong but less than (R) FUNCTIONAL MOBILITY/ADLS: Dressing LE: Pt was educated and trained in use of sock to don and doff (B) socks. He was able to perform with min vc and verbalized understanding to this. BALANCE: Static sitting Normal Dynamic Sitting Normal SPECIAL TESTS: Daily Activity Limitations Standardized Measure [facility] AM -PAC ?6 clicks? Daily Activity Inpatient Short Form: Raw score: 20 Standardized score: 42.03 CMS score: 38.32% INFORMED CONSENT/EDUCATION: Pt instructed in purpose of OT Consult and plan of care. ASSESSMENT: Patient is a 68-year-old male referred to occupational therapy services with diagnosis Atrial fibrillation with rapid ventricular response, Acute exacerbation of chronic obstructive pulmonary disease (COPD), History of interstitial lung disease, Hypoxia. Patient presents with clinical signs and symptoms consistent with dx, as demonstrated by the following impairment level findings: Decreased (B) functional ROM, decreased functional strengthening, decreased functional activity tolerance, current use of O2 during ADL routines. Impairments are contributing to the following functional limitations: Decreased functional activity tolerance, decreased (I) in above head functional use of (B) UE, chronic pain and decreased ROM, decreased O2 saturation with functional activities. AMPAC score 20, CMS score 38.32% Patient is assessed as a Moderate 30300 complexity based on the following: History: See Above Examination: See Above Presentation: Evolving Decision Making: AMPAC score 20, CMS score 38.32% GOALS N/A PLAN OF CARE/TREATMENT PLAN: OT consult only as plan is for pt to be discharged today. DISCHARGE RECOMMENDATIONS OT recommends that pt return home when medically cleared per MD with home health services. OT recommends that pt get a shower chair or bench to decrease fall risk and increase pts safety during bathing routine. TREATMENT TIME/MINUTES/CODES 28581, 15 minutes (08:00) [facility]
--- NOTE | 2018-12-14 11:12 | PT.INIE ---
Date of service: 12/14/18 Time of Service: 11:12 PT Notes Inpatient Physical Therapy Evaluation Date: 12/13/2018 Referring Doctor: Consuelo Kapoor MD PT Orders: PT CONSULT: Eval/treat Precautions: Fall. Standard. Patient Profile/Admitting Diagnosis: Patient is a 68-year-old male who presented to the ED on 12/12/18 with chief complaint of shortness of breath. Patient was diagnosed with new onset atrial fibrillation, moderate to severe pulonary HTN, and diastolic dysfunction. Patient recently was admitted to this hospital for medical intervention from 12/03/18 through 12/06/18 for healthcare-acquired pneumonia. He has a long-standing history of limitations of bilateral shoulder motion due to childhood trauma as well as left shoulder injury when he fell at his daughter's house in [place], [place] that required surgery. 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 PMHX: Medical History Anxiety (Chronic) Back pain (Chronic) COPD (chronic obstructive pulmonary disease) (Chronic) Depression (Chronic) GERD (gastroesophageal reflux disease) (Chronic) Insomnia (Chronic) Macrocytosis (Chronic) Numbness and tingling in right hand (Chronic) Right knee DJD (Chronic) Tobacco abuse (Chronic) Surgical History History of right knee surgery (Inactive) History of shoulder surgery (Inactive) Hx of tonsillectomy (Inactive) Previous back surgery (Inactive) Social History/Home Situation: Patient lives with his son's ex-'s house in [place], [place] where he plans to go home to upon discharge from this hospital. He states that it is a single floor ranch-style home with 3 steps to enter with rail on the right side going up. He states that he has stopped using a cane because it has made his hands and fingers numb although today with the use of the walker he does not report any sensory changes in both hands and fingers. Patient states he smokes 2-3 cigarettes/day and has stopped drinking for the past 20 years. He is able to make his own meals and has been ambulatory without any assistive device at home. He states he has 15 feet to walk to the bathroom and 30 feet from the inside of the house to get into the car door outside. Furthermore, he states that he was doing some grocery shopping and managing well with them as long as somebody drives him. Equipment Owned/DME: Has a walker and cane. He also has a wheelchair. He states though that he does not make use of any of them much. Subjective: Patient seen resting lying in bed and is agreeable to PT consult. Patient indicates has been having difficulty with his O2 saturation levels. He states that he is not sure how much he dould do with physical therapy today due to a bout of coughing that he just had. He states that he does want to move a lot because he feels out of breath significantly. Objective: General Observation: Patient lying in bed. IV in the right UE. No swelling to B LE observed. TEDS on BLE. Initially had nasal cannula on but oxygen was turned down to zero as RT was trying to assess how he does with oxygen saturation at rest. Patient was left with 2 L of oxygen via NC after walking activity. Mental Status: Alert and oriented x3 Pain: Denies. 0/10. ROM: Right Upper Extremity: Shoulder flexion 30 degrees. Shoulder abduction 30 degrees. Left Upper Extremity: Shoulder flexion 30 degrees. Shoulder abduction 30 degrees. Right Lower Extremity: WFL Left Lower Extremity: WFL Strength: Right Upper Extremity: Shoulder flexors 3-/5. Shoulder abductors 3-/5. Elbow flexors 3+/5. Elbow extensors 3+/5. Optical Designer weak but functional. Left Upper Extremity: Shoulder flexors 3-/5. Shoulder abductors 3-/5. Elbow flexors 3+/5. Elbow extensors 3+/5. Optical Designer weak but functional. Right Lower Extremity: Hip flexors 4-/5. Knee extensors 3+/5. Knee flexors 4-/5. Ankle dorsiflexors/plantar flexors 4+/5 Left Lower Extremity: Hip flexors 4-/5. Knee extensors 3+/5. Knee flexors 4-/5. Ankle dorsiflexors/plantar flexors 4+/5 Sensation: Intact as to pain and pressure to distal B LE. Decreased sensation to light touch throughout bilateral hands. Complaining of paresthesias throughout bilateral hands. Bed Mobility/Transfers: Rolling independent Supine to sit independent Sit to supine independent Sit to stand supervision Stand to sit supervision Bed to chair supervision Chair to bed supervision Gait: Patient was able to tolerate level surface ambulation using a front-wheeled walker with standby assist provided by this therapist for 50 feet with a total of 4 turns. O2 saturation at rest was 96% and decreased to 86% in room air with ambulation activity. RT increased oxygen level to 93% during ambulation activity with dyspnea scale at 5/10 (moderate breathlessness). Following ambulatio, patient returned to bed to rest. Balance: Static Sitting: Normal Dynamic Sitting: Normal Static Standing: Fair Dynamic Standing: Fair Special Tests: Mobility Limitations Standardized Measure [facility] AM-PAC 6 clicks Basic Mobility Inpatient Short Form: Raw Score: 18 CMS Score: 47% % deficit Informed Consent/Education: Patient instructed in purpose of PT consult and plan of care. Re-emphasized pursed lip breathing with patient mobility performance. Assessment: Patient is a 68-year-old male referred to physical therapy services with the diagnosis of new onset atrial fibrillation, moderate to severe pulmonary hypertension, and diastolic dysfunction. Patient presents with clinical signs and symptoms consistent with medical status, as demonstrated by the following impairment level findings: 1. Decreased strength to B LE and B shoulder major muscle groups 2. Impaired balance 3. Impaired activity tolerance 4. Limitation of joint range of motion in bilateral glenohumeral joints Impairments are contributing to the following functional limitations: 1. Increased dependence with transfers 2. Inability to safely ambulate without assistive device and physical assistance 3. Increase completion time for mobility ADL performance 4. Increased fall risk 5. Inability to negotiate steps alone safely Patient is assessed as a Moderate 20206 complexity based on the following: History: Patient is a 68-year-old male with diagnosis of community-acquired pneumonia and COPD exacerbation also negatively impacted by comorbidities and past medical history as listed above Examination: Underlying impairments and functional limitations as noted above Presentation: Evolving Decision Makin moderate complexity Plan of Care/Treatment Plan: Patient goes home today per MD. Oxygen needs to maximize mobility performance at home will be determined by RT in consultation with MD. DISCHARGE RECOMMENDATIONS: Patient will benefit from short-term home health physical therapy services in order to facilitate a smooth transition to home, evaluate home safety, reduce fall risk, and education/training for home health exercise program/functional maintenance program. TREATMENT CODE/TIME: 61889 x 30 minutes, 82863 x 12 minutes beginning at 10:25 AM. Thank you very much for this referral. Britt Rabago PT, DPT, CLT [facility]
--- NOTE | 2018-12-14 11:17 | IN_ITS ---
Date of service: 12/14/18 Time of Service: 11:12 PT Notes Inpatient Physical Therapy Evaluation Date: 12/13/2018 Referring Doctor: Consuelo Kapoor MD PT Orders: PT CONSULT: Eval/treat Precautions: Fall. Standard. Patient Profile/Admitting Diagnosis: Patient is a 68-year-old male who presented to the ED on 12/12/18 with chief complaint of shortness of breath. Patient was diagnosed with new onset atrial fibrillation, moderate to severe pulonary HTN, and diastolic dysfunction. Patient recently was admitted to this hospital for medical intervention from 12/03/18 through 12/06/18 for healthcare-acquired pneumonia. He has a long-standing history of limitations of bilateral shoulder motion due to childhood trauma as well as left shoulder injury when he fell at his daughter's house in [place], [place] that required surgery. 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 PMHX: Medical History Anxiety (Chronic) Back pain (Chronic) COPD (chronic obstructive pulmonary disease) (Chronic) Depression (Chronic) GERD (gastroesophageal reflux disease) (Chronic) Insomnia (Chronic) Macrocytosis (Chronic) Numbness and tingling in right hand (Chronic) Right knee DJD (Chronic) Tobacco abuse (Chronic) Surgical History History of right knee surgery (Inactive) History of shoulder surgery (Inactive) Hx of tonsillectomy (Inactive) Previous back surgery (Inactive) Social History/Home Situation: Patient lives with his son's ex-'s house in [place], [place] where he plans to go home to upon discharge from this hospital. He states that it is a single floor ranch-style home with 3 steps to enter with rail on the right side going up. He states that he has stopped using a cane because it has made his hands and fingers numb although today with the use of the walker he does not report any sensory changes in both hands and fingers. Patient states he smokes 2-3 cigarettes/day and has stopped drinking for the past 20 years. He is able to make his own meals and has been ambulatory without any assistive device at home. He states he has 15 feet to walk to the bathroom and 30 feet from the inside of the house to get into the car door outside. Furthermore, he states that he was doing some grocery shopping and managing well with them as long as somebody drives him. Equipment Owned/DME: Has a walker and cane. He also has a wheelchair. He states though that he does not make use of any of them much. Subjective: Patient seen resting lying in bed and is agreeable to PT consult. Patient indicates has been having difficulty with his O2 saturation levels. He states that he is not sure how much he dould do with physical therapy today due to a bout of coughing that he just had. He states that he does want to move a lot because he feels out of breath significantly. Objective: General Observation: Patient lying in bed. IV in the right UE. No swelling to B LE observed. TEDS on BLE. Initially had nasal cannula on but oxygen was turned down to zero as RT was trying to assess how he does with oxygen saturation at rest. Patient was left with 2 L of oxygen via NC after walking activity. Mental Status: Alert and oriented x3 Pain: Denies. 0/10. ROM: Right Upper Extremity: Shoulder flexion 30 degrees. Shoulder abduction 30 degrees. Left Upper Extremity: Shoulder flexion 30 degrees. Shoulder abduction 30 degrees. Right Lower Extremity: WFL Left Lower Extremity: WFL Strength: Right Upper Extremity: Shoulder flexors 3-/5. Shoulder abductors 3-/5. Elbow flexors 3+/5. Elbow extensors 3+/5. Crusher Assembler weak but functional. Left Upper Extremity: Shoulder flexors 3-/5. Shoulder abductors 3-/5. Elbow flexors 3+/5. Elbow extensors 3+/5. Crusher Assembler weak but functional. Right Lower Extremity: Hip flexors 4-/5. Knee extensors 3+/5. Knee flexors 4- /5. Ankle dorsiflexors/plantar flexors 4+/5 Left Lower Extremity: Hip flexors 4-/5. Knee extensors 3+/5. Knee flexors 4- /5. Ankle dorsiflexors/plantar flexors 4+/5 Sensation: Intact as to pain and pressure to distal B LE. Decreased sensation to light touch throughout bilateral hands. Complaining of paresthesias throughout bilateral hands. Bed Mobility/Transfers: Rolling independent Supine to sit independent Sit to supine independent Sit to stand supervision Stand to sit supervision Bed to chair supervision Chair to bed supervision Gait: Patient was able to tolerate level surface ambulation using a front- wheeled walker with standby assist provided by this therapist for 50 feet with a total of 4 turns. O2 saturation at rest was 96% and decreased to 86% in room air with ambulation activity. RT increased oxygen level to 93% during ambulation activity with dyspnea scale at 5/10 (moderate breathlessness). Following ambulatio, patient returned to bed to rest. Balance: Static Sitting: Normal Dynamic Sitting: Normal Static Standing: Fair Dynamic Standing: Fair Special Tests: Mobility Limitations Standardized Measure [facility] AM-PAC 6 clicks Basic Mobility Inpatient Short Form: Raw Score: 18 CMS Score: 47% % deficit Informed Consent/Education: Patient instructed in purpose of PT consult and plan of care. Re-emphasized pursed lip breathing with patient mobility performance. Assessment: Patient is a 68-year-old male referred to physical therapy services with the diagnosis of new onset atrial fibrillation, moderate to severe pulmonary hypertension, and diastolic dysfunction. Patient presents with clinical signs and symptoms consistent with medical status, as demonstrated by the following impairment level findings: 1. Decreased strength to B LE and B shoulder major muscle groups 2. Impaired balance 3. Impaired activity tolerance 4. Limitation of joint range of motion in bilateral glenohumeral joints Impairments are contributing to the following functional limitations: 1. Increased dependence with transfers 2. Inability to safely ambulate without assistive device and physical assistance 3. Increase completion time for mobility ADL performance 4. Increased fall risk 5. Inability to negotiate steps alone safely Patient is assessed as a Moderate 01827 complexity based on the following: History: Patient is a 68-year-old male with diagnosis of community-acquired pneumonia and COPD exacerbation also negatively impacted by comorbidities and past medical history as listed above Examination: Underlying impairments and functional limitations as noted above Presentation: Evolving Decision Makin moderate complexity Plan of Care/Treatment Plan: Patient goes home today per MD. Oxygen needs to maximize mobility performance at home will be determined by RT in consultation with MD. DISCHARGE RECOMMENDATIONS: Patient will benefit from short-term home health phy sical therapy services in order to facilitate a smooth transition to home, evaluate home safety, reduce fall risk, and education/training for home health exercise program/functional maintenance program. TREATMENT CODE/TIME: 06008 x 30 minutes, 02836 x 12 minutes beginning at 10:25 AM. Thank you very much for this referral. Britt Rabago PT, DPT, CLT [facility]
[2018-12-14] MEDS: Enoxaparin 40 MG/0.4 ML SYR SC (11:39)
--- NOTE | 2018-12-14 14:08 | W.PM.DS.N ---
Date of service: 12/14/18 Time of Service: 14:08 DS: Diagnosis Discharge Diagnosis (1) Paroxysmal atrial fibrillation with rapid ventricular response: Status: Acute (2) Chronic respiratory failure with hypoxia: Status: Chronic (3) Restrictive lung disease: Status: Chronic (4) Interstitial lung disease: Status: Chronic (5) GERD (gastroesophageal reflux disease): Status: Chronic (6) Chronic pain: Status: Chronic (7) Dysphagia: Status: Chronic (8) Opioid dependence: Status: Chronic (9) Pulmonary hypertension: Status: Chronic (10) Ambulatory dysfunction: Status: Chronic (11) Failure to thrive: Status: Chronic (12) Unintentional weight loss: Status: Chronic (13) Diastolic dysfunction: Status: Chronic (14) Discharge planning issues: Status: Acute (15) DVT prophylaxis: Status: Acute Discharge Plan Disposition Condition: Fair Discharge Details Reason For Visit: NEW ONSET RAPID AFIB (PAROXYSMAL), HYPOXIC RESP Admit Date/Time: 12/13/18 10:43 Admit Provider: Consuelo Kapoor Attending Provider: Consuelo Kapoor Primary Care Provider: Richelle Dowling Home Meds and New Rx's Prescriptions: No Action cyclobenzaprine 10 MG tablet 10 mg PO TID RF: 0 esomeprazole magnesium [Nexium] 20 MG capsule,delayed release(DR/EC) 20 mg PO DAILY RF: 0 methadone 10 mg/5 mL Solution 95 mg PO DAILY RF: 0 Flovent HFA 220 mcg/actuation Hfa Aerosol Inhaler 2 puff INHALATION BID RF: 0 DS: Data Vitals/I&O Vitals and I&O: Vital Signs Temperature 36.6 C 12/14/18 11:00 Temperature Source Tympanic 12/14/18 11:00 Pulse 84 12/14/18 11:00 Pulse Rhythm Regular 12/14/18 10:01 Pulse 88 12/13/18 11:50 Respiratory Rate 18 12/14/18 11:00 Respiratory Effort 12/14/18 10:01 Respiratory Depth Normal 12/14/18 10:01 Respiratory Pattern Normal 12/14/18 10:01 Blood Pressure 104/70 12/14/18 11:00 Blood Pressure Mean 91 12/13/18 11:46 Blood Pressure Position Supine 12/13/18 09:20 Pulse Oximetry 94 L 12/14/18 11:00 Oxygen Delivery Method Nasal Cannula 12/14/18 11:00 Oxygen Flow Rate 2 12/14/18 11:00 Pain Level 5 12/14/18 12:40 Comment 12/13/18 18:42 Intake & Output 12/13/18 12/14/18 12/14/18 23:59 11:59 23:59 Intake Total 2176.667 / 2416.667 240 / 2416.667 Output Total 1600 / 1600 1200 / 2000 800 / 2000 Balance -1600 / -1350 976.667 / 416.667 -560 / 416.667 Weight 67 kg 66.3 kg Intake: IV 1975.667 / Oral 200 / 440 240 / 440 Output: Urine 1600 / 1600 1200 / 2000 800 / 2000 Other: Urine Color Yellow Yellow Yellow Urine Appearance Clear Clear Clear Urine Odor None None Normal Comment Void x2 Stool Size Small Stool Characteristics Formed Hard Voiding Methods Bedpan Toilet Toilet Labs on day of discharge: Labs from last 24 hours 12/14/18 12/14/18 12/14/18 09:32 09:32 09:32 WBC 14.87 H D RBC 4.48 L Hgb 13.0 L Hct 40.4 MCV 90.2 MCH 29.0 MCHC 32.2 RDW 15.3 H Plt Count 286 MPV 10.0 Immature Gran % 0.4 Neutrophils % 85.7 Lymphocytes % 7.7 Monocytes % 5.6 Eosinophils % 0.5 Basophils % 0.1 Absolute Neutrophils 12.74 H Absolute Lymphocytes 1.14 L Absolute Monocytes 0.83 H Absolute Eosinophils 0.07 Absolute Basophils 0.01 Sodium 135 L Potassium 3.6 Chloride 100 Carbon Dioxide 26.7 Anion Gap 8.3 BUN 10 Creatinine 0.61 L Estimated GFR/1.73 m2 >= 60.00 Glucose 149 H Calcium 8.5 Magnesium 2.0 Troponin I Vitamin B12 501 TSH 2.76 12/14/18 12/13/18 12/13/18 05:35 22:10 14:20 WBC RBC Hgb Hct MCV MCH MCHC RDW Plt Count MPV Immature Gran % Neutrophils % Lymphocytes % Monocytes % Eosinophils % Basophils % Absolute Neutrophils Absolute Lymphocytes Absolute Monocytes Absolute Eosinophils Absolute Basophils Sodium Potassium Chloride Carbon Dioxide Anion Gap BUN Creatinine Estimated GFR/1.73 m2 Glucose Calcium Magnesium Troponin I 0.02 0.02 Vitamin B12 Cancelled TSH 12/13/18 15:20 Sputum Sputum Culture - Pending Preliminary micro results at discharge 12/13/18 15:20 Sputum Culture - Pending Sputum PFSH Medical History Diastolic dysfunction (Chronic) Unintentional weight loss (Chronic) Failure to thrive (Chronic) Ambulatory dysfunction (Chronic) Pulmonary hypertension (Chronic) Opioid dependence (Chronic) Chronic respiratory failure with hypoxia (Chronic) Dysphagia (Chronic) Chronic pain (Chronic) GERD (gastroesophageal reflux disease) (Chronic) COPD with acute exacerbation (Acute) Tobacco abuse (Acute) Chronic constipation (Acute) Chronic respiratory failure with hypoxia (Chronic) Interstitial lung disease (Chronic) Restrictive lung disease (Chronic) Acute respiratory failure with hypoxia (Chronic) Anxiety (Chronic) Back pain (Chronic) COPD (chronic obstructive pulmonary disease) (Chronic) Depression (Chronic) GERD (gastroesophageal reflux disease) (Chronic) Insomnia (Chronic) Macrocytosis (Chronic) Numbness and tingling in right hand (Chronic) Post laminectomy syndrome (Chronic) Right knee DJD (Chronic) Tobacco abuse (Chronic) Surgical History History of right knee surgery (Inactive) History of shoulder surgery (Inactive) Hx of tonsillectomy (Inactive) Previous back surgery (Inactive) Social History Smoking/Tobacco Use Status: Former Tobacco Use Quit Date: 11/19/18 Alcohol Intake: never Drug use: Daily Substance use type: marijuana Do you feel safe at home: Yes Do you feel safe in your relationship?: Yes Additional Social history: He lives in [place], [place] but stays with someone in [facility] to maintain [place] residency so he can participate in the [employer] program.
--- NOTE | 2018-12-14 14:49 | CHAPLAIN ---
Eladio was discharged from here a few days ago. He said he went to [facility] and was then sent home. Eladio said he is mostly tired now and hopes to be able to rest. At [facility], he said they explained to him that he likely breathed in some food that went into his lungs. He seems to comfortable being here. His daughter is working he said, and so will not be here until later in the day.
[2018-12-14] MEDS: Normal Saline Flush 10 ML SYR IVP (15:25)
[2018-12-14] MEDS: Furosemide 20 MG/2 ML VIAL IVP (15:25)
--- NOTE | 2018-12-14 17:38 | W.PM.PROGNOT ---
Date of Service Date of service: 12/14/18 Time of Service: 17:38 Assessment and Plan (1) Diastolic dysfunction: Current visit: Yes Status: Chronic Does appear fluid overloaded to me. Lasix 20 mg IV given with good UOP - however, stick has crackles. I wonder how much of this is chronic, but given the observed dyspnea, I feel they could actually be leasing representative of fluid overload. (2) Paroxysmal atrial fibrillation with rapid ventricular response: Current visit: Yes Status: Acute Having converted to NSR. CHADSVASC score is 1. High fall risk - risks of anticoagulation outweight benefits. 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 Will need a sleep study as outpatient - if complies. (3) Chronic respiratory failure with hypoxia: Current visit: Yes Status: Chronic We will ensure that the patient gets his oxygen delivered on discharge. Additionally, I was informed that the patient's O2 sat measured by ear probe are very different from his finger probe. On ambulation with RT today, he only required 2 L of O2. He requires none at rest. (4) Restrictive lung disease: Current visit: Yes Status: Chronic At baseline - no change in tx (5) Interstitial lung disease: Current visit: Yes Status: Chronic At baseline - no change in tx (6) GERD (gastroesophageal reflux disease): Current visit: No Status: Chronic Continue PPI - however, I feel this isn't the only reason the patient could be aspirating - he is also on methadone. (7) Chronic pain: Current visit: No Status: Chronic Continue outpatient therapy. (8) Dysphagia: Current visit: Yes Status: Chronic As above. In addition, patient was previously seen by speech therapy - recommended to be on dysphagia advanced diet with moistened chopped meats and thin liquids. (9) Opioid dependence: Current visit: Yes Status: Chronic Continue home therapy (10) Pulmonary hypertension: Current visit: Yes Status: Chronic Will need a sleep study (11) Ambulatory dysfunction: Current visit: Yes Status: Chronic PT/OT consults (12) Failure to thrive: Current visit: Yes Status: Chronic Could be due to his severe pulmonary disease - however, malignancy workup should be undertaken as outpatient (13) Unintentional weight loss: Current visit: Yes Status: Chronic As above (14) Discharge planning issues: Current visit: No Status: Acute Full code PT/OT consults discharge home tomorrow. (15) DVT prophylaxis: Current visit: Yes Status: Acute Lovenox Subjective Interval history since last seen: Mr Tripathi doesn't feel comfortable going home today. He denies dizziness, chest pain, nausea, vomiting. Continues to report shortness of breath. He is not sure if it's his chronic shortness of breath. Exam Narrative Exam Narrative: General: Middle-aged male, who appears much older than his stated age, A&Ox3, sitting up at the edge of the bed, actually looks somewhat dyspneic, A&Ox3 HEENT: Atraumatic, normocephalic, EOMI, MMM, Keeps left eye closed Cardiovascular: RRR, no m/r/g Lungs: R>L crackles at B bases - not heard yesterday Gastrointestinal: abdomen is soft, nontender, nondisnteded Extremities: no e/c/c BLE's, 1+ BLE pedal pulses: hand muscle wasting noted Objective Objective Clinical Data: Abnormal lab results 12/14/18 12/14/18 Range/Units 09:32 09:32 WBC 14.87 H D (4.4-10.8) k/cumm RBC 4.48 L (4.50-6.00) m/cumm Hgb 13.0 L (13.5-17.5) g/dL RDW 15.3 H (11.8-14.1) % Absolute Neutrophils 12.74 H (1.2-6.7) k/cumm Absolute Lymphocytes 1.14 L (1.2-3.4) k/cumm Absolute Monocytes 0.83 H (0.11-0.7) k/cumm Sodium 135 L (136-145) mmol/L Creatinine 0.61 L (0.70-1.30) mg/dL Glucose 149 H (70-100) mg/dL Vital Signs Temperature 37.2 C 12/14/18 16:15 Temperature Source Tympanic 12/14/18 16:15 Pulse 100 H 12/14/18 16:15 Pulse Rhythm Regular 12/14/18 15:32 Pulse 88 12/13/18 11:50 Respiratory Rate 18 12/14/18 16:15 Respiratory Effort 12/14/18 15:32 Respiratory Depth Normal 12/14/18 15:32 Respiratory Pattern Normal 12/14/18 15:32 Blood Pressure 103/70 12/14/18 16:15 Blood Pressure Mean 91 12/13/18 11:46 Blood Pressure Position Supine 12/13/18 09:20 Pulse Oximetry 93 L 12/14/18 16:51 Oxygen Delivery Method Room Air 12/14/18 16:51 Oxygen Flow Rate 0 12/14/18 16:51 Pain Level 0 12/14/18 16:15 Comment 12/13/18 18:42 Intake & Output 12/13/18 12/14/18 12/14/18 23:59 11:59 23:59 Intake Total 2176.667 / 2796.667 620 / 2796.667 Output Total 1600 / 1600 1450 / 3650 2200 / 3650 Balance -1600 / -1350 726.667 / -853.333 -1580 / -853.333 Weight 67 kg 66.3 kg Intake: IV 1976.667 / 2356.667 380 / 2356.667 Oral 200 / 440 240 / 440 Output: Urine 1600 / 1600 1450 / 3650 2200 / 3650 Other: Urine Color Yellow Yellow Pale Yellow Urine Appearance Clear Clear Clear Urine Odor None None Normal Comment Void x2 Stool Size Small Stool Characteristics Formed Hard Voiding Methods Bedpan Toilet Toilet Laboratory Results WBC 14.87 k/cumm (4.4-10.8) H D 12/14/18 09:32 RBC 4.48 m/cumm (4.50-6.00) L 12/14/18 09:32 Hgb 13.0 g/dL (13.5-17.5) L 12/14/18 09:32 Hct 40.4 % (40.0-50.0) 12/14/18 09:32 MCV 90.2 fL (80-95) 12/14/18 09:32 MCH 29.0 pg (27.0-33.0) 12/14/18 09:32 MCHC 32.2 g/dL (32.0-36.0) 12/14/18 09:32 RDW 15.3 % (11.8-14.1) H 12/14/18 09:32 Plt Count 286 x1000/uL (130-400) 12/14/18 09:32 MPV 10.0 fL (8.0-11.0) 12/14/18 09:32 Immature Gran % 0.4 12/14/18 09:32 Neutrophils % 85.7 12/14/18 09:32 Lymphocytes % 7.7 12/14/18 09:32 Monocytes % 5.6 12/14/18 09:32 Eosinophils % 0.5 12/14/18 09:32 Basophils % 0.1 12/14/18 09:32 Absolute Neutrophils 12.74 k/cumm (1.2-6.7) H 12/14/18 09:32 Absolute Lymphocytes 1.14 k/cumm (1.2-3.4) L 12/14/18 09:32 Absolute Monocytes 0.83 k/cumm (0.11-0.7) H 12/14/18 09:32 Absolute Eosinophils 0.07 k/cumm (0.0-0.7) 12/14/18 09:32 Absolute Basophils 0.01 k/cumm (0.0-0.2) 12/14/18 09:32 Sodium 135 mmol/L (136-145) L 12/14/18 09:32 Potassium 3.6 mmol/L (3.5-5.1) 12/14/18 09:32 Chloride 100 mmol/L (98-107) 12/14/18 09:32 Carbon Dioxide 26.7 mmol/L (21.0-32.0) 12/14/18 09:32 Anion Gap 8.3 mmol/L (3-11) 12/14/18 09:32 BUN 10 mg/dL (7-18) 12/14/18 09:32 Creatinine 0.61 mg/dL (0.70-1.30) L 12/14/18 09:32 Estimated GFR/1.73 m2 >= 60.00 (mL/min/1.73m2) 12/14/18 09:32 Glucose 149 mg/dL (70-100) H 12/14/18 09:32 Calcium 8.5 mg/dL (8.5-10.1) 12/14/18 09:32 Magnesium 2.0 mg/dL (1.8-2.4) 12/14/18 09:32 Total Bilirubin 0.4 mg/dL (0.2-1.0) 12/13/18 08:12 AST 16 U/L (15-37) 12/13/18 08:12 ALT 19 U/L (12-78) 12/13/18 08:12 Alkaline Phosphatase 83 U/L (46-116) 12/13/18 08:12 Troponin I 0.02 ng/mL (0.00-0.06) 12/13/18 22:10 NT-Pro-B Natriuret Pep 146 pg/mL (-299) 12/13/18 08:12 Total Protein 6.8 g/dL (6.4-8.2) 12/13/18 08:12 Albumin 2.5 g/dL (3.4-5.0) L 12/13/18 08:12 Vitamin B12 501 pg/mL (193-986) 12/14/18 09:32 TSH 2.76 uIU/mL (0.358-3.74) 12/14/18 09:32
[2018-12-15] VITALS (7 sets, daily range): BP systolic 108–110; BP diastolic 70–82; PULSE 70–88; RESP 2–20; TEMP 36–36.4; O2SAT 84–98
[2018-12-15] MEDS: Esomeprazole 20 MG CAPCR PO (06:55)
[2018-12-15] MEDS: Albuterol/Ipratropium 3 ML UPD VIAL UPD (07:01)
[2018-12-15] MEDS: Mometasone 220 MCG 14 DOSE INHALER 1 PUFF IH (07:25)
[2018-12-15] MEDS: Methadone Liquid 10 MG/ML 95 MG PO (08:20)
[2018-12-15] MEDS: Normal Saline Flush 10 ML SYR IVP ×2 (08:38→09:44)
[2018-12-15] MEDS: Cyanocobalamin 500 MCG TAB 1000 MCG PO (08:39)
[2018-12-15] MEDS: Cyclobenzaprine 10 MG TAB PO ×2 (08:39→14:13)
[2018-12-15] MEDS: Aspirin E.C. 81 MG TABEC PO (08:39)
--- NOTE | 2018-12-15 08:51 | PDOC.CMPRO ---
- If Service Date Differs Date of service: 12/15/18 Time of Service: 08:51
[2018-12-15] MEDS: Furosemide 40 MG/4 ML VIAL IVP (09:43)
[2018-12-15 11:00] LABS: Anion Gap 7.2 mmol/L (3-11); BUN 8 mg/dL (7-18); CO2 30.8 mmol/L (21.0-32.0); CREATININE 0.65 mg/dL (0.70-1.30); Calcium 8.9 mg/dL (8.5-10.1); Chloride 97 mmol/L (98-107); Glucose 116 mg/dL (70-100); Potassium 4.1 mmol/L (3.5-5.1); Sodium 135 mmol/L (136-145)
[2018-12-15] MEDS: Enoxaparin 40 MG/0.4 ML SYR SC (12:09)
--- NOTE | 2018-12-15 13:52 | DSE_ITS ---
Date of service: 12/15/18 Time of Service: 13:48 DS: Diagnosis Discharge Diagnosis (1) Chronic respiratory failure with hypoxia: Status: Chronic (2) Restrictive lung disease: Status: Chronic (3) Paroxysmal atrial fibrillation with rapid ventricular response: Status: Acute (4) Diastolic dysfunction: Status: Chronic (5) Interstitial lung disease: Status: Chronic (6) GERD (gastroesophageal reflux disease): Status: Chronic (7) Chronic pain: Status: Chronic (8) Dysphagia: Status: Chronic (9) Opioid dependence: Status: Chronic (10) Pulmonary hypertension: Status: Chronic (11) Ambulatory dysfunction: Status: Chronic (12) Failure to thrive: Status: Chronic (13) Unintentional weight loss: Status: Chronic (14) Physical deconditioning: Status: Acute Discharge Plan Disposition Patient Disposition: SNF (LEVEL 1) [facility] Condition: Stable Discharge Details Reason For Visit: NEW ONSET RAPID AFIB (PAROXYSMAL), HYPOXIC RESP Admit Date/Time: 12/13/18 10:43 Admit Provider: Consuelo Kapoor Attending Provider: Consuelo Kapoor Primary Care Provider: Richelle Dowling Hospital Course Hospital Course: Mr Tripathi is a 68 year old male with PMHx of chronic hypoxic respiratory failure due to chronic interstitial and restrictive lung disease, question of COPD, with suspicion for chronic aspiration, opioid dependence on methadone therapy, who was observed on [facility] hospitalist service from 12/13/18 until 12/15/18 for hypoxia noted on room air (the patient had not yet had his oxygen, just ordered by his outpatient commercial agent, delivered to his house yet), as well as new onset Afib, which was briefly rapid, self-limited, converting to NSR while still in the ED. He ruled out for acute coronary syndrome. His echo revealed EF of 65-0%, diastolic dysfunction, pulmonary hypertension with PA pressures of 55-65 mm Hg. The patient would benefit form a sleep study once he is able. Meanwhile, we did initiated him on a small dose of beta jair (lopressor 12.5 mg BID). HE did not have recurrence of Afib for the next 24 hours and did not wish to wear telemetry any further after that. He also refuses a cardiac event monitor on discharge. He is a poor candidate for anticoagulation, and his CHADSVasc score is 1. He was initiated on asa 81 mg PO daily. As far as his hypoxia, it needs to be noted that patient's O2 sats read by ear probe are discordant from the finger readings - his ear probe O2 sats are more accurate. The patient does require oxygen on the day of discharge - 2 L. He does appear to have a slight leucocytosis and, with suspicion for frequent aspiration, he was initiated on augmentin with a 5 day course of prednisone 40 mg PO daily. He was previously evaluated by speech therapy - he does not have oropharyngeal dysphagia, but does have oral-prep dysphagia due to total edentulousness. He is recommended to be on a dysphagia advanced diet with moistened chopped meats and thin liquids. There is a suggestion that the patient got slightly fluid overloaded after the initial period of IV hydration, but he is near euvolemic at the time of discharge. He could benefit from oral lasix for the next 2 days. Finally, his commercial agent recommends that the patient be initiated on OFEV 150 mg PO BID. Because of his frequent falls and generalized weakness, the patient would strongly benefit from subacute rehab. [facility] is getting [facility]. He is medically stable for discharge. Home Meds and New Rx's Prescriptions: New acetaminophen [Tylenol] 325 mg Tablet 325 - 650 mg PO Q4H PRN PRNQty: 0 RF: 0 ipratropium-albuterol 0.5 mg-3 mg(2.5 mg base)/3 mL Solution For Nebulization 3 ml UPD Q6H Qty: 0 RF: 0 albuterol sulfate 2.5 mg /3 mL (0.083 %) Solution For Nebulization 2.5 mg UPD Q2H PRN PRNQty: 0 RF: 0 amoxicillin-pot clavulanate 875-125 mg Tablet 1 tab PO BID Qty: 9 RF: 0 prednisone 20 mg Tablet 40 mg PO DAILY Qty: 0 RF: 0 aspirin 81 mg Tablet,Delayed Release (Dr/Ec) 81 mg PO DAILY Qty: 0 RF: 0 magnesium hydroxide [Milk of Magnesia] 400 mg/5 mL Suspension 30 ml PO DAILY PRN PRNQty: 0 RF: 0 cyanocobalamin (vitamin B-12) [Vitamin B-12] 500 mcg Tablet 1,000 mcg PO DAILY Qty: 0 RF: 0 docusate sodium [Colace] 100 mg Capsule 100 mg PO BID Qty: 0 RF: 0 alum-mag hydroxide-simeth [Mag-Al Plus] 200-200-20 mg/5 mL Suspension 30 ml PO Q2H PRN PRNQty: 0 RF: 0 metoprolol tartrate 25 mg Tablet 12.5 mg PO BID Qty: 0 RF: 0 Continued cyclobenzaprine 10 MG tablet 10 mg PO TID RF: 0 esomeprazole magnesium [Nexium] 20 MG capsule,delayed release(DR/EC) 20 mg PO DAILY RF: 0 methadone 10 mg/5 mL Solution 95 mg PO DAILY RF: 0 Flovent HFA 220 mcg/actuation Hfa Aerosol Inhaler 2 puff INHALATION BID RF: 0 Discharge Instructions Instructions: Aspiration Pneumonia (DC) Stand Alone Forms: Nursing Discharge Form Referrals: Richelle Dowling [Primary Care Provider] - 12/29/18 3:45 pm Activity:: Activity as Tolerated Equipment/Supplies:: Oxygen (L/min Below) Diet:: dysphagia advanced moistened chopped meats Discharge Orders Discharge Orders: Discharge Order (Routine); Ordered 12/15/18 Ordered By: Consuelo Kapoor Exam Narrative Exam Narrative: Exam Narrative: General: Middle-aged male, who appears much older than his stated age, A&Ox3, sitting up at the edge of the bed, actually looks somewhat dyspneic, A&Ox3 HEENT: Atraumatic, normocephalic, EOMI, MMM, Keeps left eye closed Cardiovascular: RRR, no m/r/g Lungs: R basilar crackles Gastrointestinal: abdomen is soft, nontender, nondisnteded Extremities: no e/c/c BLE's, 1+ BLE pedal pulses: hand muscle wasting noted DS: Data Vitals/I&O Vitals and I&O: Vital Signs Temperature 36.4 C L 12/15/18 08:00 Temperature Source Tympanic 12/15/18 08:00 Pulse 70 12/15/18 08:00 Pulse Rhythm Regular 12/15/18 08:52 Pulse 88 12/13/18 11:50 Respiratory Rate 20 12/15/18 08:00 Respiratory Effort Non-Labored 12/15/18 12:03 Respiratory Depth Normal 12/15/18 08:52 Respiratory Pattern Normal 12/15/18 08:52 Blood Pressure 110/70 12/15/18 08:00 Blood Pressure Mean 91 12/13/18 11:46 Blood Pressure Position Supine 12/13/18 09:20 Pulse Oximetry 90 L 12/15/18 13:03 Oxygen Delivery Method Room Air 12/15/18 13:03 Oxygen Flow Rate 0 12/15/18 13:03 Pain Level 0 12/15/18 04:00 Comment 12/15/18 04:00 Intake & Output 12/14/18 12/15/18 12/15/18 23:59 11:59 23:59 Intake Total 990 / 3166.667 390 / 390 Output Total 2450 / 3900 1050 / 1475 425 / 1475 Balance -1460 / -733.333 -660 / -1085 -425 / -1085 Weight 66.4 kg Intake: IV 380 / 2356.667 Oral 610 / 810 390 / 390 Output: Urine 2450 / 3900 1050 / 1475 425 / 1475 Other: Urine Color Yellow Yellow Pale Urine Appearance Clear Clear Clear Urine Odor Normal Normal None Comment Void x2 post lasix Stool Size Small Stool Characteristics Formed Hard Voiding Methods Urinal Urinal Completed studies during hospitalization [Text1]: CXR 12/13/18: Stable appearance of right sided opacities as well as interstitial changes and volume loss. Echo 12/13/18: 1. Left ventricle: The cavity size was normal. Systolic function was hyperdynamic. The estimated ejection fraction was 65-70%. Some parameters suggest diastolic dysfunction. There was no evidence of elevated ventricular filling pressure by Doppler parameters. 2. Aortic valve: There was mild stenosis. Peak velocity (S): 1.6m/sec. Mean gradient (S): 5.5mm Hg. VTI ratio of LVOT to aortic valve: 0.39. Valve area (VTI): 1.2cm^2. 3. Right ventricle: Poorly visualized. 4. Pulmonary arteries: Pulmonary systolic pressure was in the range of 55mm Hg to 65mm Hg. 5. Inferior vena cava: The vessel was patent and normal in size. The respirophasic diameter changes were in the normal range (greater than or equal to 50%), consistent with normal central venous pressure. Labs on day of discharge: Labs from last 24 hours 12/15/18 10:41 Sodium 135 L Potassium 4.1 Chloride 97 L Carbon Dioxide 30.8 Anion Gap 7.2 BUN 8 Creatinine 0.65 L Estimated GFR/1.73 m2 >= 60.00 Glucose 116 H Calcium 8.9 Magnesium 2.0 Preliminary micro results at discharge 12/13/18 15:20 Sputum Culture - Preliminary Sputum Normal Son[facility] Medical History Diastolic dysfunction (Chronic) Unintentional weight loss (Chronic) Failure to thrive (Chronic) Ambulatory dysfunction (Chronic) Pulmonary hypertension (Chronic) Opioid dependence (Chronic) Chronic respiratory failure with hypoxia (Chronic) Dysphagia (Chronic) Chronic pain (Chronic) GERD (gastroesophageal reflux disease) (Chronic) COPD with acute exacerbation (Acute) Tobacco abuse (Acute) Chronic constipation (Acute) Chronic respiratory failure with hypoxia (Chronic) Interstitial lung disease (Chronic) Restrictive lung disease (Chronic) Acute respiratory failure with hypoxia (Chronic) Anxiety (Chronic) Back pain (Chronic) COPD (chronic obstructive pulmonary disease) (Chronic) Depression (Chronic) GERD (gastroesophageal reflux disease) (Chronic) Insomnia (Chronic) Macrocytosis (Chronic) Numbness and tingling in right hand (Chronic) Post laminectomy syndrome (Chronic) Right knee DJD (Chronic) Tobacco abuse (Chronic) Surgical History History of right knee surgery (Inactive) History of shoulder surgery (Inactive) Hx of tonsillectomy (Inactive) Previous back surgery (Inactive) Social History Smoking/Tobacco Use Status: Former Tobacco Use Quit Date: 11/19/18 Alcohol Intake: never Drug use: Daily Substance use type: marijuana Do you feel safe at home: Yes Do you feel safe in your relationship?: Yes Additional Social history: He lives in [place], [place] but stays with someone in [facility] to maintain [place] residency so he can participate in the [facility] program.
[2018-12-15] MEDS: predniSONE 20 MG TAB 40 MG PO (14:34)
[2018-12-15] MEDS: Amoxicillin 875/Clav. 125 TAB PO (14:34)
--- NOTE | 2018-12-15 21:10 | PDOC.CMDIS ---
- If Service Date Differs Date of service: 12/15/18 Time of Service: 21:10 LACE Index Scoring Tool - Questions: Length of Stay (in days): 3 Acuity (Admit via E.D.?): Yes Comorbidities: Chronic Pulmonary Disease E.D. Visits: 3 - Answers: Total Score: 11 Risk of Readmission: High Risk Care Management Discharge Reason for Hospitalization: Paroxysmal atrial fibrillation with rapid ventricular response Discharge Plan: Eladio [facility] prior to returning home. He was hopeful to be ready to return to his home however he feels to weak and conitnues to require oxygen at rest. CM contacted his daughter Khurram and provided update she agrees with the plan. Eladio will have a pallaitve care consult at [facility] rehab with . TEDDY contacted [facility] and arranged transportation to the facility. TEDDY discussed the plan of care with director of volunteer services at [facility] and also contacted JOHN to notify the patient has transition to SNF. Patient/Family Education Needs: Discharge education, limitations and follow up plan of care. Services Needed at Discharge: Senior Living Facility, Transportation
--- NOTE | 2018-12-15 21:15 | CMDISCH_ITS ---
- If Service Date Differs Date of service: 12/15/18 Time of Service: 21:10 LACE Index Scoring Tool - Questions: Length of Stay (in days): 3 Acuity (Admit via E.D.?): Yes Comorbidities: Chronic Pulmonary Disease E.D. Visits: 3 - Answers: Total Score: 11 Risk of Readmission: High Risk Care Management Discharge Reason for Hospitalization: Paroxysmal atrial fibrillation with rapid ventricular response Discharge Plan: Eladio is [facility] prior to returning home. He was hopeful to be ready to return to his home however he feels to weak and conitnues to require oxygen at rest. CM contacted his daughter Khurram and provided update she agrees with the plan. Eladio will [facility]ait[facility] with . TEDDY contacted [facility] and arranged transportation to the facility. TEDDY discussed the plan of care with aoc director combat plans officer at [facility] and also contacted JOHN to notify the patient has transition to SNF. Patient/Family Education Needs: Discharge education, limitations and follow up plan of care. Services Needed at Discharge: [facility] Facility, Transportation
== END 2018-12-15 14:49 | disposition skilled nursing facility (03) ==
LOC: ER 10:01 → MS 12:39
PROVIDERS: Emergency Medicine; Admitting Provider Internal Medicine; Emergency Provider Physician Assistant; PCP Nurse Practitioner Family; Visit Provider Internal Medicine
DX: I48.0 Paroxysmal atrial fibrillation (principal); J96.11 Chronic respiratory failure with hypoxia; J84.89 Other specified interstitial pulmonary diseases; J98.4 Other disorders of lung; E87.70 Fluid overload, unspecified; F11.20 Opioid dependence, uncomplicated; I27.29 Other secondary pulmonary hypertension; I51.89 Other ill-defined heart diseases; R29.6 Repeated falls; I35.0 Nonrheumatic aortic (valve) stenosis; R13.11 Dysphagia, oral phase; R62.7 Adult failure to thrive; R63.4 Abnormal weight loss; Z68.22 Body mass index [BMI] 22.0-22.9, adult
CPT/HCPCS: 36415; 80048; 80053; 87077; 93005; 93306; 94640; 96365; 97162; 97165; 97530; 99220; 99225; 99239; 99285; J1650; 71046; 82607; 83735; 83880; 84443; 84484; 85025; 87070; 87186; 87205; 93010; 99217; 99284; G0378; J1940; J1941; J2930; J7512; J7620